=== PATIENT | female | born 1935 | race Caucasian/White ===

== ENCOUNTER 2021-02-07 15:40 | Emergency (ER) | payer MEDICARE, OTHER ==
[~2021-02-07] VITALS: Ht 167.7 cm; Wt 86.0 kg
--- OUTSIDE RECORDS SUMMARY | 2021-02-07 15:48 | XMS REPORT | Encounter Summary ---
[facility] Address Unknown Phone Unavailable Care Team Providers Care Procurement Services Manager Name Role Phone Jeromy Silva MD PCP [phone] Reason for Visit * Reason Onset Date Comments Abdominal Pain 12/14/2020 Encounter Details Care Team Description Date Type Department Jeromy Silva MD [address] [address] [email or web address] Ab[facility] 12/14/2020 Nurse Brian Subramanian Inter nal Triage-Office Medicine - [facility] [address] [place] [id number] Social History Date Tobacco Use Types Packs/Day Years Used Quit: 1986 Former Smoker Cigarettes 1 25 Smokeless Tobacco: Never Used Comments Alcohol Use Standard Drinks/Week On occasion will have a glass of wine Yes 0 (1 standard drink = 0.6 o z pure alcohol) Alcohol Habits Answer Date Recorded How often do you have a drink containing alcohol? 2-4 time s a month 09/12/2018 How many drinks containing alcohol do you have on 1 or 2 09/12/2018 a typical day when you are drinking? How often do you have six or more drinks on one Never 09/12/2018 occasion? [employer] Comments Sexually Active Male Not Currently Sex Assigned at Date Recorded Not on file Industry Job Start Date Occupation Not on file Not on file Not on file documented as of this encounter Miscellaneous Notes * Telephone Encounter - Eloise Landry RN - 12/14/2020 9:50 AM CDT Patient called in complaining of upper abdominal pain more prominent on the righ t side. She states it is an aching feeling that feels like her bra is too tight but she has not worn her bra for 3 days now. She denies N/V/D and constipation. She states she does get SOB. She states she did just lose her and this c ould be part of it. This nurse advised she needs to be seen in ER now due to urg ency of symptoms. Patient voices understanding and states she will have her daug hter take her in. Reason for Disposition Constant abdominal pain lasting > 2 hours Answer Assessment - Initial Assessment Questions 1. LOCATION: "Where does it hurt?" Right under the rib cage- more located on right side 2. RADIATION: "Does the pain shoot anywhere else?" (e.g., chest, back) Up and down the spine 3. ONSET: "When did the pain begin?" (e.g., minutes, hours or days ago) Couple weeks- more severe today 4. SUDDEN: "Gradual or sudden onset?" Gradual 5. PATTERN "Does the pain come and go, or is it constant?" - If constant: "Is it getting better, staying the same, or worsening?" (Note: Constant means the pain never goes away completely; most serious pain is constant and it progresses) - If intermittent: "How long does it last?" "Do you have pain now?" (Note: Intermittent means the pain goes away completely between bouts) Constant 6. SEVERITY: "How bad is the pain?" (e.g., Scale 1-10; mild, moderate, or sever e) - MILD (1-3): doesn't interfere with normal activities, abdomen soft and not t caitlin to touch - MODERATE (4-7): interferes with normal activities or awakens from sleep, ten deniz to touch - SEVERE (8-10): excruciating pain, doubled over, unable to do any normal acti vities 2/10 right now but varies in degree of pain 7. RECURRENT SYMPTOM: "Have you ever had this type of abdominal pain before?" If so, ask: "When was the last time?" and "What happened that time?" No 8. CAUSE: "What do you think is causing the abdominal pain?" Unsure 9. RELIEVING/AGGRAVATING FACTORS: "What makes it better or worse?" (e.g., moveme nt, antacids, bowel movement) Positioning 10. OTHER SYMPTOMS: "Has there been any vomiting, diarrhea, constipation, or uri ne problems?" No 11. : "Is there any chance you are ?" "When was your last menst rual period?" NA Protocols used: ABDOMINAL PAIN - FEMALE-A-OH documented in this encounter Plan of Treatment Not on filedocumented as of this encounter Visit Diagnoses Not on filedocumented in this encounter Additional Health Concerns Noted Time Assessment 03/14/2014 9:55 AM CDT A fall risk assessment has been complet ed for the patient documented as of this encounter Care Teams Start Date End Date Procurement Services Manager Relationship Specialty 09/03/13 Jeromy Silva, PCP - General [email or web address] documented as of this encounter
--- OUTSIDE RECORDS SUMMARY | 2021-02-07 15:48 | XMS REPORT | Encounter Summary ---
Author Author [facility] Organization [facility] Address Unknown Phone Unavailable Care Team Providers Care Senior Cyber Intelligence Analyst Name Role Phone Jeromy Silva MD PCP [phone] Encounter Details Care Team Description Date Type Department Jeromy Silva MD [address] [address] [email or web address] 01/01/2021 Chart Note [facility] - [place] [address] [place] [address] Social History Date Tobacco Use Types Packs/Day [...] as of this encounter Miscellaneous Notes * Progress Notes - Jess Squires MA - 01/01/2021 9:09 AM CDT Pt lab result letter was mailed. documented in this encounter Plan of Treatment Not on filedocumented as of this encounter Visit Diagnoses Not on filedocumented in this encounter Additional Health Concerns Noted Time Assessment 03/14/2014 9:55 AM CDT A fall risk assessment has been complet ed for the patient documented as of this encounter Care Teams Start Date End Date Senior Cyber Intelligence Analyst Relationship Specialty 09/03/13 Jeromy Silva, PCP - General [email or web address] documented as of this encounter
--- OUTSIDE RECORDS SUMMARY | 2021-02-07 15:48 | XMS REPORT | Encounter Summary ---
Author Author [facility] Address Unknown Phone Unavailable Care Team Providers Care Physician Non Invasive Cardiologist Name Role Phone Jeromy Silva MD PCP [phone] Reason for Visit * Imaging Prior Auth (Routine) - Closed Diagnoses / Procedures Referred By Contact Referred To Conta ct Specialty Diagnoses RUQ pain Procedures US ABDOMEN Zulma Perry [address] [place] [address] [facility] Center Ultrasound [address] [place] [address] Radiology Referral ID Status Reason Start Date Expiration Visits Vi sits Date Requested Authorized [id number] Closed Specialty Services 12/14/2020 12/14/2021 1 1 Required Encounter Details Care Team Description Date Type Department Provider, [employer], MODEL USER [address] [place] [id number] RUQ pain 12/15/2020 Imaging [facility] [place] [address] [place] [address] Social History Date Tobacco Use Types Packs/Day [...] on file documented as of this encounter Plan of Treatment Not on filedocumented as of this encounter Procedures Comments Procedure Name Priority Date/Time Associated Diag nosis US ABDOMEN COMPLETE Routine 12/15/2020 RUQ pain 10:53 AM CDT documented in this encounter Results * US ABDOMEN COMPLETE (12/15/2020 10:53 AM CDT) Modality Anatomical Region Laterality Ultrasound Abdomen Specimen Impressions Ramu Smith MD - 12/15/2020 11:51 AM CDT 1. The liver is normal in size, and th e echo texture is diffusely hyperechoic, consistent with hepatic steatosis ( fatty liver ), or other less likely diffuse liver process. The patient does have risk factor(s) for fatty liver. Fatty liver can cause right upper quadrant/epigastric pain. Liver chemistries may sometimes be normal with fatty liver. 2. There is a simple cyst in the spleen. It meets sonographic criteria for benignity and would not typically require specific imaging follow up unless preferred by the ordering provider or patient. 3. The remainder of the study is normal. Close additional attention is paid to the gallbladder. 4. At least some of the patient s symptoms are suggestive of biliary colic, plus the patient has one or more risk factors for gallbladder disease, so the question of a gallbladder functional disorder could be raised. Depending on the clinical setting a sonographic gallbladder emptying study may be helpful. Its results correlate well with those of HIDA radioisotope gallbladder emptying studies, but it is less expensive, less time-consuming, and avoids radiation exposure and IV injections. Please Note: Visualization of the pancreas is typically quite limited with ultrasound. ANCILLARY INFORMATION - on This Case of Presumptive Fatty Liver Follows, if Interested. A. Nearly always the cause of fatty liver (hepatic steatosis) is one or both of the followin) NONALCOHOLIC fatty liver disease (NAF LD) - with by far its major triggers being overweight, and/or diabetes/prediabetes, OR 2) ALCOHOLIC fatty liver disease (AFLD). Occasionally chronic hepatitis C (mostly genotype 3), can cause fatty liver. Other causes are rare. B. Fatty liver commonly causes chronic right upper quadrant/epigastric pain and/or liver chemistry elevation, but sometimes neither of these is present. C. The liver chemistry elevations of fatty liver typically comprise mild transaminase elevations with or without mild elevation of the alkaline phosphatase and GGT. Infrequently there can be mild isolated alkaline phosphatase elevation, mostly seen in diabetics. Fatty liver alone does not cause elevation of the bilirubin. In normal patients, and in those with NAFLD including this patient, the AST/ALT ratio is nearly always <1 or close. D. In the [place] NAFLD is pandemic, present in about 1/3 of adults, and is the most type of chronic liver disease in [place]. It is now one of the 3 leading causes of cirrhosis and liver transplantation in the [place] along with alcoholic liver disease and chronic hepatitis C, and is projected to soon be the LEADING cause of both. NAFLD also increases the risk of hepatocellular carcinoma. Alarmingly our Ultrasound Lab makes the new diagnosis of fatty liver in several patients every single day, some being children and teenagers. E. LIVER FIBROSIS STAGE is the best prognostic factor in fatty liver. The presence of advanced fibrosis is associated with an increased risk of the presence or later development of cirrhosis, portal hypertension, and hepatocellular carcinoma, and is associated with an increased all-cause mortality rate. Short of liver biopsy, the NAFLD Fibrosis Score , easily calculated using 6 clinical variables at (best internet site) https://www.Ogorod.co/qbyhz-kbwonsck-bmzgs-calculator-239/ , used together with sonographic Liver Elastography, can be used to best assess liver fibrosis stage, and is especially meaningful if performed yearly or periodically. Narrative Ramu Smith MD - 12/15/2020 11:51 AM CDT INDICATION: Pain in the right upper quadrant and right lower quadrant, some of which has features of biliary colic. Liver chemistries 03/30/20 were normal. The patient s BMI is recorded as 33 (25-29.9 = overweight; 30 or greater = obese), today he/she rep orts no diagnosed diabetes or prediabetes, and reports no regular alcohol use. 1. Procedure High resolution real time imaging of the contents of the abdominal cavity is performed. 2. Abdominal Aorta (entire) and IVC (pro ximal and/or mid) No clinically significant abnormalities. 3. Pancreas The limited visualized portions reveal no obvious masses, but visualization is incomplete as usual. 4. Liver and Bile Ducts Normal in size. The contour is normal. The echo texture is diffusely mildly hyperechoic. No focal lesions are seen. The common hepatic duct near the kyrie hepatis is normal in diameter. No dilatation of the intrahepatic or other extrahepatic bile ducts is present. 5. Gallbladder Normal in size and contour. The lumen reveals no abnormality. Wall thickness normal. 6. Kidneys Right Size: normal. Appearance: normal. Left Size: normal. Appearance: normal. 7. Spleen Echo texture is normal except for a 2.6 cm simple cyst. 8. Other There is no abnormal free fluid in the abdomen, and no abnormal masses are seen. FINAL documented in this encounter Visit Diagnoses Diagnosis RUQ pain Abdominal pain, right upper quadrant documented in this encounter Additional Health Concerns Noted Time Assessment 03/14/2014 9:55 AM CDT A fall risk assessment has been complet ed for the patient documented as of this encounter Care Teams Start Date End Date Physician Non Invasive Cardiologist Relationship Specialty 09/03/13 Jeromy Silva, PCP - [email or web address] documented as of this encounter
--- OUTSIDE RECORDS SUMMARY | 2021-02-07 15:48 | XMS REPORT | Clinical Summary ---
Author Author [facility] Address Unknown Phone Unavailable Care Team Providers Care Cigarette Examiner Name Role Phone Jeromy Silva MD PCP [phone] Allergies Comments Active Allergy Reactions Severity Noted Date Nausea Donepezil Nausea Only Cough. Stopped by cardiololgy, 12/13/17. Lisinopril Other (See 12/14/2017 Comments) made pt ill Sulfamethoxazole-Trimetho Other (See prim Comments) Medications End Date Status Medication Sig Dispensed Refills Start Date Active vitamin E 400 units Take 400 0 capsule Units by mouth daily. Active vitamin C (ASCORBIC ACID) Take 500 mg 0 500 MG tablet by mouth daily. Active multivitamin Take 1 tablet 0 (OCUVITE-LUTEIN) TABS by mouth tablet daily. Active vitamin B-12 Take 1 tablet 0 (CYANOCOBALAMIN) 1000 MCG (1,000 mcg 8 tablet total) by mouth daily. Active Cholecalciferol (VITAMIN Take 1 0 D3) 5000 units capsule by CAPSIndications: Vitamin mouth daily. D deficiency Active Lutein 40 MG CAPS Take by 0 mouth. Active cyclobenzaprine Take 10 mg by 0 (FLEXERIL) 10 MG tablet mouth 3 9 (three) times daily as needed. Active amLODIPine (NORVASC) 5 MG Take 1 tablet 90 tablet 3 tabletIndications: (5 mg total) 0 Essential hypertension by mouth daily. Active losartan (COZAAR) 50 MG Take 1 tablet 90 tablet 3 tabletIndications: (50 mg total) 0 Hypertension by mouth daily. Indications: High Blood Pressure Disorder Active fish oil (OMEGA-3) 1000 Take 4,000 mg 60 capsule 11 MG capsuleIndications: by mouth See 0 Hypercholesterolemia Admin Instructions. Takes twice a week Active levothyroxine (SYNTHROID) Take 1 tablet 90 tablet 3 75 MCG tablet by mouth once 1 daily Active aspirin (ECOTRIN LOW Take 81 mg by 0 STRENGTH) 81 MG EC mouth daily. tabletIndications: MCI (mild cognitive impairment) Active DULoxetine (CYMBALTA) 30 Take 1 30 capsule 3 0 MG capsuleIndications: capsule (30 1 Major Depressive Disorder mg total) by mouth daily. Indications: Major Depressive Disorder Active Problems Problem Noted Date Liver mass 12/23/2020 Overview: Formatting of this note might be differ ent from the original. CT abdomen/pelvis on 12/23/2020 showed: 1. Vague low-attenuation focus identified within the posterior medial aspect of the right hepatic lobe centered on image 24 measuring 2.4 x 2. 4 cm, suspicious for malignancy. There is associated rotation of the phr enic biliary ductal system in the adjacent portions of the right posterio r hepatic lobe and right caudate lobe. This mass encases the proximal a spect of the right main portal vein causing luminal narrowing. 2. Enlarging splenic cystic focus dmitriy uring 3.7 x 2.9 cm. I discussed the liver mass with the pat ient. Will need to be biopsied. She would like to go to [facility] as her [employer] works there. L ast Assessment & Plan: Formatting of this note might be differ ent from the original. CT abdomen/pelvis on 12/23/2020 showed: 1. Vague low-attenuation focus identified within the posterior medial aspect of the right hepatic lobe centered on image 24 measuring 2.4 x 2. 4 cm, suspicious for malignancy. There is associated rotation of the phr enic biliary ductal system in the adjacent portions of the right posterio r hepatic lobe and right caudate lobe. This mass encases the proximal a spect of the right main portal vein causing luminal narrowing. 2. Enlarging splenic cystic focus dmitriy uring 3.7 x 2.9 cm. I discussed the liver mass with the pat ient. Will need to be biopsied. She would like to go to [facility] as her [employer] ndson works there. 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 Monitor kidney function. L ast Assessment & Plan: Formatting of this note might be differ ent from the original. Monitor kidney function. Right calf pain 11/05/2020 Overview: Formatting of this note might be differ ent from the original. She has pain and swelling of her right calf. She had her right ankle immobilized recently due to right ankle pain. Check venous ultrasound of right leg. L ast Assessment & Plan: Formatting of this note might be differ ent from the original. She has pain and swelling of her right calf. She had her right ankle immobilized recently due to right ankle pain. Check venous ultrasound of right leg. Acute right ankle pain 08/10/2020 Overview: Formatting of this note is different fr om the original. She had acute medial right ankle pain w ithout injury, 08/03/20. She had edema over medial malleolus. The media l malleolus was tender. She tried ibuprofen twice daily and iced the ankl e twice daily. X-ray of right ankle, 08/10/20, was normal. She was ev aluated by Dr. Malcolm on 09/30/2020. 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 She was placed in a walking boot. MRI of the right ankle 10/02/2020 showed: 1. There is some nonspecific bone marrow edema seen. This may represent contusion or small osteochondral defect along medial talar dome. No und er cutting fluid to suggest instability. No fracture or significan t bone marrow edema. There is loss of the arch of the foot. Articulations otherwise are normal without significant joint effusion. 2. Anterior talofibular ligament is no t well seen and may be torn. There is also partial tear of the or sprain o f the calcaneofibular ligament suggested. The other ligamentous struc tures are intact. 3. The major tenderness structures thr oughout do appear within normal limits. 4. Small cystic structure dorsal to th e talonavicular joint. Mild subcutaneous edema of the lower leg and ankle and mild edema Gauger's fat pad. 5. Mild fluid within the tendon sheath s of the medial flexor tendons. The tendons are otherwise are normal. She moved from her boot to a right ankl e brace. She has less swelling. She continues to see Dr. Malcolm. L ast Assessment & Plan: Formatting of this note is different fr om the original. She had acute medial right ankle pain w ithout injury, 08/03/20. She had edema over medial malleolus. The media l malleolus was tender. She tried ibuprofen twice daily and iced the ankl e twice daily. X-ray of right ankle, 08/10/20, was normal. She was ev aluated by Dr. Malcolm on 09/30/2020. 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 She was placed in a walking boot. MRI of the right ankle 10/02/2020 showed: 1. There is some nonspecific bone marrow edema seen. This may represent contusion or small osteochondral defect along medial talar dome. No und er cutting fluid to suggest instability. No fracture or significan t bone marrow edema. There is loss of the arch of the foot. Articulations otherwise are normal without significant joint effusion. 2. Anterior talofibular ligament is no t well seen and may be torn. There is also partial tear of the or sprain o f the calcaneofibular ligament suggested. The other ligamentous struc tures are intact. 3. The major tenderness structures thr oughout do appear within normal limits. 4. Small cystic structure dorsal to th e talonavicular joint. Mild subcutaneous edema of the lower leg and ankle and mild edema Gauger's fat pad. 5. Mild fluid within the tendon sheath s of the medial flexor tendons. The tendons are otherwise are normal. She moved from her boot to a right ankl e brace. She has less swelling. She continues to see Dr. Malcolm. Primary osteoarthritis of left knee 02/07/2020 Overview: Formatting of this note might be differ ent from the original. She is exquisitely tender over medial t high/knee without any skin changes. I see no hematoma. She does not want t o take a medication. I will have her see Dr. Lockett. MRI of the left knee on 02/11/2020 showe d 1. Degenerative arthrosis. 2. Loss of height of the medial menisc us. Tear of the body and posterior horn of the medial meniscus. 3. ACL is intact. Minimal heterogeneo us signal within the superior aspect of the PCL suggesting minimal sprain. 4. Minimal edema within Hoffmans fat p ad. 5. Tiny popliteal cyst. 6. Minimal tendinosis of the quadricep tendon and patellar tendons. 7. Nonlocalizing soft tissue edema, an terior to the knee. 8. Mild lateral subluxation of the pat lisandro. L ast Assessment & Plan: Formatting of this note might be differ ent from the original. She is exquisitely tender over medial t high/knee without any skin changes. I see no hematoma. Check MRI of knee/l eft thigh. She does not want to take a medication. I will have her see Dr. Lockett. Acute pain of left lower extremity 01/29/2020 Overview: Formatting of this note might be differ ent from the original. The patient was evaluated in ER on 2019 with left leg pain. The pain started while she was sleeping 10 days prior with persistent leg pain that was worse with weightbearing. Venous u ltrasound of the left lower extremity was negative for DVT. She re ceived a dose of Tylenol in the ER. She had no known injury. She had pulle d weeds for a week prior to the pain. She continues to have pain. She has pain over medial thigh then down into her calf. She can not straighten her leg due to pain. She hurts more over medial thigh and knee and lateral knee and lateral cough. She has a neuropathy in her feet so she can not t ell if her foot hurts. She is exquisitely tender over medial t high/knee without any skin changes. I see no hematoma. Check MRI of knee/l eft thigh. She does not want to take a medication. I will have her see Dr. Lockett. L ast Assessment & Plan: Formatting of this note might be differ ent from the original. She is exquisitely tender over medial t high/knee without any skin changes. I see no hematoma. Check MRI of knee/l eft thigh. She does not want to take a medication. I will have her see Dr. Lockett. Insect bite of right forearm, initial encounter 11/26 Last Assessment & Plan: Formatting of this note might be differ ent from the original. Antibiotic as directed. Printed education provided. Rest as needed. Plenty of fluids. Diphenhydramine cream - apply to the ar ea as needed. Other over the counter symptom manageme nt as needed. Follow-up as needed for persistent or w orsening symptoms. Bilateral groin pain 11/15/2018 Overview: Formatting of this note might be differ ent from the original. She is improving. L ast Assessment & Plan: Formatting of this note might be differ ent from the original. She is improving. Calcaneal spur of left foot 03/28/2018 Overview: Formatting of this note might be differ ent from the original. X-ray on 03/28/18 shows moderate planta r calcaneal spurring. S/P cardiac cath 11/23/2017 Overview: Formatting of this note is different fr om the original. Done by Dr. Anne 11/13/17. Showed 1.N ormal coronary arteries, 2. LVEF of 70-75%, 3. Left ventricular diastoli c dysfunction. L ast Assessment & Plan: Formatting of this note might be differ ent from the original. Patient reports to feeling better since her cardiac cath. She denies chest pain and reports her SOB has improved. There has been no complications so far from this procedure. Pelvic pain 11/08/2017 Overview: Formatting of this note might be differ ent from the original. Pelvic XR, 11/08/17: No clear fx but DJ D. L ast Assessment & Plan: Formatting of this note might be differ ent from the original. I will check pelvic XR. Sacral back pain 11/08/2017 Overview: Formatting of this note might be differ ent from the original. Sacral XR, 11/08/17: No clear fx but DJ D. Lumbar spine film ?L1 compression fracture. MRI on 11/10/17 sh owed multilevel degenerative changes with disc bulges and protrusions but no compression fracture. L ast Assessment & Plan: Formatting of this note might be differ ent from the original. Check XRs. Gallbladder polyp 03/28/2017 Overview: Formatting of this note might be differ ent from the original. 0.4 cm gallbladder polyp noted on u/s, 03/28/17. Radiologist recommended yearly f/u for 2-3 years since it is <0 .6 cm. Acute non intractable tension-type headache 02/29/20 17 Overview: Formatting of this note might be differ ent from the original. Sed rate: 25, 11/09/16. Breast pain 02/28/2017 Overview: Formatting of this note might be differ ent from the original. Left breast has significant tenderness. I do not feel any mass but painful over her biopsy scar. May need to see surgery. Chest pain, unspecified chest pain type 02/28/2017 Overview: Formatting of this note might be differ ent from the original. Echo, 06/2011, showed LVEF 60% with mild diastolic dysfunction. Stress test, negative, 07/26/11. No significan t CAD found on heart cath, 10/2004. Chronic fatigue 02/28/2017 Overview: Formatting of this note might be differ ent from the original. B12 level: normal, 12/18/15, but 336, and 343, 12/08/17. L ast Assessment & Plan: Formatting of this note might be differ ent from the original. B12 level: normal, 12/18/15, but 336, and 343, 12/08/17. She has noted chronic fatigue. Chronic low back pain 02/28/2017 Overview: Formatting of this note might be differ ent from the original. Sees chiropractor as needed. MRI of the lumbar spine on 03/13/18: Multilevel degenerative changes. Multil evel disc bulges and protrusions. No canal stenosis. Varying degrees of fora alo narrowing. 1.4 cm cystic focus within the left upper quadrant etiology uncertain. Stable. L ast Assessment & Plan: Formatting of this note might be differ ent from the original. MRI of the lumbar spine on 03/13/18: Mu ltilevel degenerative changes. Multilevel disc bulges and protrusions. No canal stenosis. Varying degrees of foraminal narrowing. 1.4 cm cystic f ocus within the left upper quadrant etiology uncertain. Stable. Costochondritis 02/28/2017 Overview: Formatting of this note might be differ ent from the original. She was tender over chest wall and doin g a lot of yard work. Stress test: normal, 11/04/15. Dry eyes, bilateral 02/28/2017 Overview: Formatting of this note might be differ ent from the original. She has severe dry eyes. She sees Dr. Verduzco. She is using eye drops four times daily but she is interested in a prescription medication. Hemorrhoids 02/28/2017 Overview: Formatting of this note might be differ ent from the original. after childbirth Hypercholesterolemia 02/28/2017 Overview: Formatting of this note might be differ ent from the original. She could not tolerate zocor. She is t rying to work on her diet. She knows that she needs to exercise more. Niacin did cause hot flashes. L ast Assessment & Plan: Formatting of this note might be differ ent from the original. She could not tolerate zocor. She is t rying to work on her diet. Hypothyroidism, adult 02/28/2017 Overview: Formatting of this note might be differ ent from the original. Continue levothyroxine. Monitor TSH wi th reflex to free T4. Last Assessment & Plan: Formatting of this note might be differ ent from the original. Continue levothyroxine. Monitor TSH wi th reflex to free T4. Impaired fasting glucose 02/28/2017 Overview: Formatting of this note might be differ ent from the original. Fasting glucose of 107 but a1c only 5.2 %, 03/09/15. Leg pain, left 02/28/2017 Overview: Formatting of this note might be differ ent from the original. Left Tib/fib,Ankle x-ray, knee: negativ e, 09/19/11. Lumbar disc herniation 02/28/2017 Overview: Formatting of this note might be differ ent from the original. MRI, 08/22/16, showed posterior annular tear and bulging disk at L3/4 and L4/5. Neuropathic pain 02/28/2017 Overview: Formatting of this note might be differ ent from the original. Mid thoracic spine around chest. She d id have a tick bite a while ago. It is now progessing more inferiorly but a lso more superiorly. MRI, 12/26/13 showed minimal degenerative arthritis o r disk disease. Lyme titer: negative, 12/25/13. Vitamin A and B12 l evels: normal, 12/25/13. B12 level: normal, 12/18/15 but only 343 on 12/08/17 . Her sedimentation rate and CRP were normal on 12/08/17. Obesity (BMI 30.0-34.9) 02/28/2017 Overview: Formatting of this note might be differ ent from the original. She does not exercise. She is unsteady on her feet. L ast Assessment & Plan: Formatting of this note might be differ ent from the original. She does not exercise. She is unsteady on her feet. Pes planus of both feet 02/28/2017 Right wrist pain 02/28/2017 Overview: Formatting of this note might be differ ent from the original. Chris is controlling the pain. X-rays: negative, 01/11/13. Skin tag 02/28/2017 Overview: Formatting of this note might be differ ent from the original. She has two skin tags that get irritate d from her bra. Vitamin D deficiency 03/03/2010 Overview: Formatting of this note might be differ ent from the original. 25-OH vitamin D level, 27, 03/03/2010 an d 28, 06/09/10 and 36, 03/10/11 and 34, 03/06/13 and 29, 03/10/14. Vitamin D3 increased to 2000 units/day. Vitamin D dropped to 9, 17 and 24 , 09/07/17, so vitamin D increased to 4000 units/d. Vitamin D: 32, 11/08/17 but down to 23, 12/08/17 and 19, 03/13/18 and 21, 09/13/18. [place] [address] [place]/d, 09/13/18. Vitamin D level increased to 40, 124/2 0 but down to 28, 03/30/20. L ast Assessment & Plan: Formatting of this note might be differ ent from the original. 25-OH vitamin D level, 27, 03/03/2010 an d 28, 06/09/10 and 36, 03/10/11 and 34, 03/06/13 and 29, 03/10/14. Vitamin D3 increased to 2000 units/day. Vitamin D dropped to 9, 1017 and 24 , 09/07/17, so vitamin D increased to 4000 units/d. Vitamin D: 32, 11/08/17 but down to 23, 718 and 19, 03/13/18 and 21, 09/13/18. [place] [address] [place]/d, 09/13/18. Vitamin D level increased to 40, 1/24/2 0. 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 She still worries about her family and daughter who lost her job but she is managing. Her brother due to neur opathy in 2018 and she also has neuropathy. Her in 2020. (Her had 3 surgeries. He can not hear and will not wear hearing aids. He had all of his teeth pulled but will not wear his dentures.) She has stress more than depression. She had felt that she coul d manage without medication for a long time. Her daughter has come to [facility] with them so she can cook and drive which has helped. Her daughter n eeds to leave to take a job. She has to sell her home. She can not find a house to move into in [place], [place]. She is from [place] so she still has some friends there. Her PHQ-9 score was 17 on 11/05/20. Duloxetine st arted, 2020. She has times when she just sits and feels empty inside. She has no strength to get up. She tries to change her mental outlook. L ast Assessment & Plan: Formatting of this note might be differ ent from the original. She still worries about her family and daughter who lost her job but she is managing. Her brother due to neur opathy in 2018 and she also has neuropathy. Her in 2020. (Her had 3 surgeries. He can not hear and will not wear hearing aids. He had all of his teeth pulled but will not wear his dentures.) She has stress more than depression. She had felt that she coul d manage without medication for a long time. Her daughter has come to [facility] with them so she can cook and drive which has helped. Her daughter n eeds to leave to take a job. She has to sell her home. She can not find a house to move into in [place], [place]. She is from [place] so she still has some friends there. Her PHQ-9 score was 17 on 11/05/20. Duloxetine st arted, 2020. She has times when she just sits and feels empty inside. She has no strength to get up. She tries to change her mental outlook. Primary osteoarthritis involving multip le joints Overview: Formatting of this note might be differ ent from the original. Right thumb and right knee pain consist ent with osteoarthritis. Discussed NSAIDs/tylenol and will try capsaicin c ream prn, 03/06/13. Osteopenia of left hip Overview: Formatting of this note might be differ ent from the original. Bone Density in 2005 showed osteopenia. Follow-up in 2010 continued to show osteopenia. Bone density, 7, showed osteopenia but her FRAX risk assessment in hip was >3% at 3.3%. DEXA, 05/11/20, showed osteopenia of left hip. The FRAX calculation for t his patient estimates a 10-year probability of any major osteoporotic f racture of 13% and of hip fracture of 3.2%, 05/11/20. Treatment recommend ed. Fosamax started, 05/18/20. L ast Assessment & Plan: Formatting of this note might be differ ent from the original. Bone Density in 2005 showed osteopenia. Follow-up in 2010 continued to show osteopenia. Bone density, 7, showed osteopenia but her FRAX risk assessment in hip was >3% at 3.3%. I will repeat DEXA. Essential hypertension Overview: Formatting of this note might be differ ent from the original. I decreased her amlodipine to 5 mg/d du e to edema, 12/31/18. Her edema improved when amlodipine was decreased to 5 mg/d, 12/14/17. Cardiology changed her lisinopril to losartan due to cough and metoprolol to amlodipine on 12/13/17. Her blood pressure is elevated. Losart an increased to 50 mg/d, 03/30/20. Continue losartan and amlodipine. L ast Assessment & Plan: Formatting of this note might be differ ent from the original. Her blood pressure is elevated. Losart an increased to 50 mg/d, 03/30/20. Continue losartan and amlodipine. Chronic bilateral thoracic back pain Overview: Formatting of this note might be differ ent from the original. She has a pain that goes around her upp er abdomen. L ast Assessment & Plan: Formatting of this note might be differ ent from the original. Check thoracic spine films. She has a pain that goes around her upper abdomen. Right hip pain Overview: Formatting of this note might be differ ent from the original. I offered to refer her to geophysical drafter apy but she does not want to yet. L ast Assessment & Plan: Formatting of this note might be differ ent from the original. I offered to refer her to geophysical drafter [place] but she does not want to yet. Unsteady gait Overview: Formatting of this note might be differ ent from the original. She had 3 falls in 3 months then anothe r fall last winter. She worked with physical therapy. She has a neuropathy that she describes as a tightness in her posterior legs. This seems to b e part of problem. She also describes that at times it feels like h er feet are stuck to the floor/ground. She was walking with a c ane but stopped. She may need to be evaluated by Neurology in the future. L ast Assessment & Plan: Formatting of this note might be differ ent from the original. She had 3 falls in 3 months then anothe r fall last winter. She worked with physical therapy. She has a neuropathy that she describes as a tightness in her posterior legs. This seems to b e part of problem. She also describes that at times it feels like h er feet are stuck to the floor/ground. She was walking with a c ane but stopped. She may need to be evaluated by Neurology in the future. Idiopathic peripheral neuropathy Overview: Formatting of this note might be differ ent from the original. She has a sense like her feet are arturo er and tight. It feels like the plantar feet are tight. Her feet never improve. EMG, 01/04/18: sensory peripheral neurop athy on the bilateral lower extremities. The patient had MRI of the lumbar spine which shows multilevel disk degenerative change with small left ext rusion of L4-L5; no high-grade stenosis. She is noticing progressive numbness th at is going up the back of her legs. She is having more leg cramps. Her father had a neuropathy and her brother had a neuropathy as well. I re commended gabapentin, 09/12/18 and 11/05/20, but she does not like pills an d does not want to take anything yet. Duloxetine started, 11/05/20, for depression. I will see if helps her neuropathy. L ast Assessment & Plan: Formatting of this note might be differ ent from the original. I recommended gabapentin, 09/12/18 and , but she does not like pills and does not want to take anything yet. Duloxetine started, 11/05/20, for depression. I will see if helps her ne uropathy. Edema, lower extremity Overview: Formatting of this note might be differ ent from the original. I decreased her amlodipine to 5 mg/d du e to edema, 12/31/18. L ast Assessment & Plan: Formatting of this note might be differ ent from the original. I decreased her amlodipine to 5 mg/d du e to edema, 12/31/18. Class 1 obesity due to excess calories with serious comorbidity and body mass index (BMI) of 32.0 to 32.9 in angie lt Overview: Formatting of this note might be differ ent from the original. I discussed increasing her exercise. S he does not exercise [place] She tr ies to stay active but her neuropathy in her feet prevents her fro m walking too much. She has brought her weight down which she attributes to her daughter cooking her meals. L ast Assessment & Plan: Formatting of this note might be differ ent from the original. She does not exercise but [place] She tries to stay active but her neuropathy in her feet prevents her from walking too much. She has brought her weight down which she attributes to her daughter cooking her meals. NAFLD (nonalcoholic fatty liver disease ) Overview: Formatting of this note might be differ ent from the original. Fatty liver noted on CT scan 03/20/18. MCI (mild cognitive impairment) Overview: Formatting of this note might be differ ent from the original. Her mother had dementia. She feels mor e forgetful. Her family has noted some changes. MMSE score of 26/30, . (Medican score for age and education 27.) Aricept tried, 11/12/15. B12 level: normal, 12/18/15. MMSE score 25/30. All of the questions that she missed were serial 7s. Predicted Median for age and years of e ducation was 29, 09/12/18. She loves to make quilts and she feels this helps keep her mind active. Her memory seems to be worsening. She forgets things that she is doing. Her long-term memory does seem to be in tact. She called in on 05/18/2020 to start a medication. Donepezil 5 mg a day was tried but she stopped taking it when she was dealing with her 's . L ast Assessment & Plan: Formatting of this note might be differ ent from the original. Donepezil 5 mg a day was tried but she stopped taking it when she was dealing with her 's . Abdominal pain, RUQ Overview: Formatting of this note is different fr om the original. Patient presented to ER on 12/14/2020 wi th intermittent right upper quadrant pain for 2 months. She initially thoug ht that she had adjusted her bra too tightly. Pain is worse after eating gr easy meals. Last to 3 days she had having creased pain after eating. She had no nausea, vomiting or diarrhea. She had a normal bowel movement. Cell count and hemoglobin were normal. Her liver tests were normal. Alkaline phosphatase level was elevated 170. Lipase was 32. She received a dose of Tylenol. Patient was diagnosed with right upper quadrant pain likely due to cholelithiasis. Patient was dismissed to home. Ultrasound on 12/15/2020 showed: 1. T he liver is normal in size, and the echo texture is diffusely hyperechoic, consistent with hepatic st eatosis ("fatty liver"), or other less likely diffuse liver process. Th e patient does have risk factor(s) for fatty liver. Fatty liver can cause right upper quadrant/epigastric pain. Liver chemistries may sometimes b e normal with fatty liver. 2. There is a simple cyst in the spleen . It meets sonographic criteria for benignity and would not typically r equire specific imaging follow up unless preferred by the ordering provid er or patient. 3. The remainder of the study is normal . Close additional attention is paid to the gallbladder. 4. At least some of the patient's sympt oms are suggestive of biliary colic, plus the patient has one or more risk f actors for gallbladder disease, so the question of a gallbladder functiona l disorder could be raised. Depending on the clinical setting a son ographic gallbladder emptying study may be helpful. Its results correlate w ell with those of HIDA radioisotope gallbladder emptying studies, but it is less expensive, less time-consuming, and avoids radiation ex posure and IV injections. She was tender over liver. CT abdomen/pelvis on 12/23/2020 showed: 1. Vague low-attenuation focus identified within the posterior medial aspect of the right hepatic lobe centered on image 24 measuring 2.4 x 2. 4 cm, suspicious for malignancy. There is associated rotation of the phr enic biliary ductal system in the adjacent portions of the right posterio r hepatic lobe and right caudate lobe. This mass encases the proximal a spect of the right main portal vein causing luminal narrowing. 2. Enlarging splenic cystic focus dmitriy uring 3.7 x 2.9 cm. MRI of abdomen on 01/01/2021 showed: 1. Dilated intrahepatic biliary ductal system is within posterior aspect right hepatic lobe and adjacent caudate lobe again identified. Severe narrowin g of the proximal aspect of the right main portal vein is again identif ied, better visualized on CT. 2. On dynamic postcontrast images, the re is increasing parenchymal enhancement in the right hepatic lobe i n the region of the ductal dilatation. Underlying neoplastic proc ess suspected. 3. Splenic cyst. L ast Assessment & Plan: Formatting of this note is different fr om the original. Patient presented to ER on 12/14/2020 wi th intermittent right upper quadrant pain for 2 months. She initially thoug ht that she had adjusted her bra too tightly. Pain is worse after eating gr easy meals. Last to 3 days she had having creased pain after eating. She had no nausea, vomiting or diarrhea. She had a normal bowel movement. Cell count and hemoglobin were normal. Her liver tests were normal. Alkaline phosphatase level was elevated 170. Lipase was 32. She received a dose of Tylenol. Patient was diagnosed with right upper quadrant pain likely due to cholelithiasis. Patient was dismissed to home. Ultrasound on 12/15/2020 showed: 1. T he liver is normal in size, and the echo texture is diffusely hyperechoic, consistent with hepatic st eatosis ("fatty liver"), or other less likely diffuse liver process. Th e patient does have risk factor(s) for fatty liver. Fatty liver can cause right upper quadrant/epigastric pain. Liver chemistries may sometimes b e normal with fatty liver. 2. There is a simple cyst in the spleen . It meets sonographic criteria for benignity and would not typically r equire specific imaging follow up unless preferred by the ordering provid er or patient. 3. The remainder of the study is normal . Close additional attention is paid to the gallbladder. 4. At least some of the patient's sympt oms are suggestive of biliary colic, plus the patient has one or more risk f actors for gallbladder disease, so the question of a gallbladder functiona l disorder could be raised. Depending on the clinical setting a son ographic gallbladder emptying study may be helpful. Its results correlate w ell with those of HIDA radioisotope gallbladder emptying studies, but it is less expensive, less time-consuming, and avoids radiation ex posure and IV injections. She is tender over liver. CT abdomen/pelvis on 12/23/2020 showed: 1. Vague low-attenuation focus identified within the posterior medial aspect of the right hepatic lobe centered on image 24 measuring 2.4 x 2. 4 cm, suspicious for malignancy. There is associated rotation of the phr enic biliary ductal system in the adjacent portions of the right posterio r hepatic lobe and right caudate lobe. This mass encases the proximal a spect of the right main portal vein causing luminal narrowing. 2. Enlarging splenic cystic focus dmitriy uring 3.7 x 2.9 cm. Resolved Problems Problem Noted Date Resolved Date Cellulitis of right lower extremity 05/21/2019 Overview: Formatting of this note might be differ ent from the original. I will treat with keflex x 7 days. She will keep skin moisturized with vaseline. L ast Assessment & Plan: Formatting of this note might be differ ent from the original. I will treat with keflex x 7 days. She will keep skin moisturized with vaseline. FUO (fever of unknown origin) 11/02/2018 03/27/20 20 Overview: Formatting of this note might be differ ent from the original. Patient presented to ER on 11/02/18 with fever chills back pain and hip pain. Patient reported being in her yard daljitn g extensive weeding. On getting back into her house she noticed about 8 tick s on her legs and also 3 spider bites. Patient also notes that she has 8-12 cats and most of them had been ill the week before with a diarrheal il lness for which the bet had prescribed some antibiotics. Case manag emtaco called the clinic and reported the vast were being treated for giardia . Her temperature was 101.3F. Chest x-ray showed mild prominence of v asculature compared to previous exam. There is no consolidation. Patien isabella was admitted as an inpatient. The patient's fever went to greater than 10 3F. Her white blood cell count was 9800 with a bandemia of 18%. She was al so mildly hyponatremic. She started on IV fluids. Her antibiotics were hart ged to IV Zosyn. Blood cultures were negative, respiratory pathogen panel wa s negative, urinalysis was negative and stool pathogen panel (including teodora rdia) was also negative. Lactic acid was within normal limits) calcitonin wa s only mildly elevated and improved. Her white blood cell count remained nor mal and her bandemia improved. She was covered for a tickborne illness has no other sources of infection were identified. She was dismissed to home w [facility] and doxycycline 100 mg twice daily for 14 more days on 11/07. She was also prescribed tizanidine for back spasms. She is slowly but steadily improving. She is finished with home health. L ast Assessment & Plan: Formatting of this note might be differ ent from the original. She is slowly but steadily improving. She is finished with home health. Cat scratch of hand, left, initial encounter 05/16/2017 11/15/2018 Pain of upper abdomen 03/09/2017 12/23/2020 Overview: Formatting of this note might be differ ent from the original. Her pain is across her upper abdomen. A bdominal u/s, 03/28/17, did not show a cause for her pain. L ast Assessment & Plan: Formatting of this note might be differ ent from the original. Her pain is across her upper abdomen. I will check abdominal u/s. Anxiety 02/28/2017 03/18/2019 Last Assessment & Plan: Formatting of this note might be differ ent from the original. Improved. Closed fracture of rib, right, with routine healing, subsequent encounter 02/28/2017 02/28/2017 Overview: Formatting of this note might be differ ent from the original. Right sided after fall, 08/07/12. Bone scan, 08/21/12, showed right 4th and 5th rib fractures. Idiopathic peripheral neuropathy 02/28/201703/12 Overview: Formatting of this note might be differ ent from the original. B12 level: normal, 12/18/15. Resolved 03.12.2018, duplicate L ast Assessment & Plan: Formatting of this note might be differ ent from the original. Stable. Memory loss 02/28/2017 09/12/2018 Overview: Formatting of this note might be differ ent from the original. Her mother had dementia. She feels mor e forgetful. Her family has noted some changes. MMSE score of 26/30, . (Medican score for age and education 27.) Aricept tried, 11/12/15. B12 level: normal, 12/18/15. Spider bite wound, accidental or unintentional, subse quent encounter 02/28/2017 02/28/2017 Overview: Formatting of this note might be differ ent from the original. Seems to be healing. Will stop bactrim , 03/09/15. Traumatic ulcer of left lower extremity with necrosis of mu scle 02/28/2017 02/28/2017 Overview: Formatting of this note might be differ ent from the original. Seems to be healed but still has some l ocal pain to area. Xray: negative for foreign body, 06/30/15. 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 Follow-up colonoscopy, 02/21/12, showed no polyps. Acute left ankle pain 03/27/2020 Overview: Formatting of this note might be differ ent from the original. She is better. If worsens, then she wo uld like to see Dr. Aranda. L ast Assessment & Plan: Formatting of this note might be differ ent from the original. She is better. If worsens, then she wo uld like to see Dr. Aranda. Wound, open, hip or thigh with complication, right, s ubsequent encounter 11/28/2018 Overview: Formatting of this note might be differ ent from the original. It seems to be healing. Follow-up in 2 weeks. L ast Assessment & Plan: Formatting of this note might be differ ent from the original. It has healed. Encounters Care Team Description Date Type Specialty Gisele Iniguez MA Liver mass 01/04/2021 Orders Only Internal Medicine Jermoy Silva MD 01/01/2021 Chart Note Internal Medicine Abdominal pain, RUQ 12/31/2020 Lab Visit Lab Jeromy Silva MD Abdominal Pain 12/30/2020 Nurse Internal Medicine Triage-Office Hours Jeromy Silva MD Calling For Orders (MRI abdomen ) 12/29/2020 Nurse Internal Medicine Triage-Office Hours Jeromy Silva MD Liver mass (Primary Dx); Abdominal pain, RUQ 12/25/2020 Office Visit Internal Medicine Link, Onbase 12/24/2020 Orders Only Jeromy Silva MD Results (CT scan abnormal) 12/24/2020 Telephone Internal Medicine Jeromy Silva MD Abdominal pain, RUQ (Primary Dx); 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 Office Visit Internal Medicine Provider, [employer]ystem_2, MODEL USER RUQ pain 12/15/2020 Imaging Radiology Jeromy Silva MD Abdominal Pain 12/14/2020 Nurse Internal Medicine Triage-Office Hours Link, Onbase 11/26/2020 [facility] Clinic Scan from Last 3 Months Immunizations Name Administration Dates Next Due COVID-19 mRNA LNP-S PF 08/13/2020, 08/13/2020, , 07/16/2020 (Moderna) INFLUENZA A&B TRIVALENT 03/18/2019, 02/19/2018, 04/2017 VAC ADJUVANTED PF (Adults=>65 y/o-FLUAD) INFLUENZA IIV3 HD (Adults 03/09/2016 =>65 y/o-FLUZONE HD) INFLUENZA QUADRIVALENT 02/07/2020 ADJUVANTED (FLUAD-Adults=>65 y/o) Influenza IIV3 MDV 03/10/2014 (Multi-dose vial) Influenza IIV3 PFree 05/28/2015 Pneumococcal Conjugate 06/11/2015 (13-valent) Pneumococcal 09/27/2003 Polysaccharide (23-valent) Td(adult), adsorbed 10/01/2007 Tdap 06/16/2016, 06/16/2016 Family History Medical History Relation Name Comments Arthritis Brother hip and back proble ms GI problems Brother choledocholithiasis Other Brother due to gallbla dder complications/sepsis/MRSA after he fractured hip Heart attack Father age 52 due to NE while driving. Alzheimer's disease Mother Diana age 9 2 due Alzheimer's Dementia, Chronic John Abdominal Pain, ASCVD, Hype rlipidemia. Breast cancer Paternal Aunt Other Sister She lived alone and was found in bed. Relation Name Status Comments Brother Father Mother Diana Lopez Paternal Aunt Sister Social History Date Tobacco Use Types Packs/Day Years Used Quit: 1986 Former Smoker Cigarettes 1 25 Smokeless Tobacco: Never Used Tobacco Cessation: Counseling Given: No Comments Alcohol Use Standard Drinks/Week On occasion [...] file Not on file Not on file Last Filed Vital Signs Reading Time Taken Comments Vital Sign 132/72 12/25/2020 11:30 AM CDT Blood Pressure 73 12/25/2020 11:30 AM CDT Pulse 36.6 C (97.9 F) 12/25/2020 11:30 AM CDT Temperature 18 12/25/2020 11:30 AM CDT Respiratory Rate 97% 12/25/2020 11:30 AM CDT Oxygen Saturation - - Inhaled Oxygen Concentration 90.4 kg (199 lb 4.8 oz) 12/25/2020 11:30 AM CDT Weight 167.1 cm (5' 5.8") 11/05/2020 4:12 PM CDT Height 32.36 11/05/2020 4:12 PM CDT Body Mass Index Plan of Treatment Health Maintenance Due Date Last Done Comments Zoster Vaccine (1 of 2) 1985 Annual Wellness Visit 09/17/2020 09/18/2019, 12/08/2016 Influenza Vaccine (#1) 2021 02/07/2020, 03/18/2019, 02/19/2018, Additional history exists DTaP,Tdap,and Td Vaccines 06/16/2026 06/16/2016, (2 - Td or Tdap) 06/16/2016, 10/01/2007 Pneumo-Vaccine: 65+Yrs Completed 06/11/2015, 09/27/2003 Pneumo-Vaccine: Peds (0-5 Completed 06/11/2015, Yrs) & At-Risk Patients 09/27/2003 (6-64 Yrs) COVID-19 Vaccine Completed 08/13/2020, 08/13/2020, 07/16/2020, Additional history exists HIB Vaccines Aged Out No longer eligible based on patient's age to complete this topic IPV Vaccines Aged Out No longer eligible based on patient's age to complete this topic Meningococcal Vaccine Aged Out No longer eligib le based on patient's age to complete this topic Rotavirus Vaccines Aged Out No longer eligible based on patient's age to complete this topic Procedures Comments Procedure Name Priority Date/Time Associated Diag nosis MRI ABDOMEN W/WO CONTRAST Routine 01/04/2021 Live r mass CBC WITH AUTO Routine 12/31/2020 Abdominal pain, RUQ DIFFERENTIAL 11:04 AM CDT COMPREHENSIVE METABOLIC Routine 12/31/2020 Abdomi nal pain, RUQ PANEL 11:04 AM CDT CBC AND DIFFERENTIAL Routine 12/31/2020 Abdominal pain, RUQ 11:04 AM CDT HM EXTERNAL CT SCAN 12/23/2020 12:00 AM CDT US ABDOMEN COMPLETE Routine 12/15/2020 RUQ pain 10:53 AM CDT HM PATHOLOGY EXTERNAL 12/10/2020 12:00 AM CDT from Last 3 Months Results * MRI Abdomen (with and without contrast) (01/04/2021) Modality Anatomical Region Laterality Magnetic Resonance Abdomen Narrative * CBC auto differential (12/31/2020 11:04 AM CDT) WBC 7.5 3.5 - 10.5 10E9/L [facility] RBC 4.45 3.90 - 5.03 10E12/L [facility] Hemoglobin 13.8 12.0 - 15.5 g/dL [facility] Hematocrit 44.1 34.9 - 44.5 % [facility] MCV 99.1 (H) 81.6 - 98.3 fL [facility] MCH 31.0 26.0 - 34.0 pg [facility] MCHC 31.3 31.0 - 37.0 g/dL [facility] RDW 13.5 11.9 - 15.5 % [facility] Platelets 271 150 - 450 10E9/L [facility] nRBC 0.00 <=0.00 10E9/L [facility] Neutrophils % 61.7 40.0 - 75.0 % [facility] Lymphocytes % 28.4 22.0 - 49.0 % [facility] Monocytes % 5.6 2.0 - 10.0 % [facility] Eosinophils % 3.1 <=5.0 % [facility] Basophils % 1.2 0.0 - 2.5 % [facility] Neutrophils 4.60 1.70 - 7.00 10E9/L [facility] Lymphocytes 2.12 0.90 - 2.90 10E9/L [facility] Monocytes 0.42 0.30 - 0.90 10E9/L [facility] Eosinophils 0.23 0.05 - 0.50 10E9/L [facility] Basophils 0.09 0.00 - 0.30 10E9/L [facility] % nRBC 0 % [facility] Specimen Blood Performing Organization Address City/State/ZIP Code P jacinta Number [facility] [address] [place] [address] * Comprehensive metabolic panel (12/31/2020 11:04 AM CDT) [facility] Signature Sodium 139 136 - 145 mmol/L [facility] Potassium 4.1 3.6 - 4.9 mmol/L [facility] Chloride 106 99 - 111 mmol/L [facility] CO2 28 20 - 36 mmol/L [facility] Anion Gap 5 [facility] Glucose 87 74 - 106 mg/dL [facility] Total Protein 6.6 5.7 - 8.2 g/dL [facility] Albumin 4.3 3.4 - 4.8 g/dL [facility] Calcium 9.7 8.3 - 10.6 mg/dL [facility] BUN, Bld 13 6 - 20 mg/dL [facility] Creatinine 0.80 0.40 - 1.10 mg/dL [facility] eGFR >59 >59 mL/min [facility] Total Bilirubin 0.7 0.0 - 1.2 mg/dL [facility] Alkaline 190 (H) 29 - 122 U/L [facility] Phosphatase LABORATORY ALT 25 10 - 46 U/L [facility] AST 24 16 - 37 U/L [facility] Specimen Blood Performing Organization Address City/State/ZIP Code P jacinta Number [facility] [address] [place] [address] * US ABDOMEN COMPLETE (12/15/2020 10:53 AM [...] 6 clinical variables at (best internet site) [email or web address] , used together with sonographic Liver Elastography, [...] and no abnormal masses are seen. FINAL from Last 3 Months Insurance Type Payer Benefit Subscriber ID Effective Phone Address Plan / Dates Group Medicare MEDICARE MEDICARE [id number] 2001-P [address] [place] [address] CIGNA MEDICARE SUPPLEMENT CIGNA [id number] 2019-P [address] MEDICARE [phone] [place], [place] [address] Advance Directives For more information, please contact: [phone] Patient Concert Manager Explanation Type Date Recorded Advance Directives and Living Will Power of Manager Benefit Care Teams Start Date End Date Cigarette Examiner Relationship Specialty 09/03/13 Jeromy Silva, PCP - [email or web address]
--- OUTSIDE RECORDS SUMMARY | 2021-02-07 15:48 | XMS REPORT | Encounter Summary ---
Author Author [facility] Address Unknown Phone Unavailable Care Team Providers Care Optical Laboratory Mechanic Name Role Phone Jeromy Silva MD PCP [phone] Reason for Referral * Consultation (Routine) - Closed Diagnoses / Procedures Referred By Contact Referred To Conta ct Specialty Diagnoses Liver mass Jeromy Silva MD [address] [address] Hematology/ Oncology Referral ID Status Reason Start Date Expiration Visits Vi sits Date Requested Authorized [id number] Closed Specialty Services 12/25/2020 12/25/2021 1 1 Required Reason for Visit * Reason Comments Results CT follow up Encounter Details Care Team Description Date Type Department Jeromy Silva MD [address] [address] [email or web address] Liver mass (Primary Dx); Abdominal pain, RUQ 12/25/2020 Office Visit Brian Del Rio [facility] [address] [place] [address] [id number] Social History Date Tobacco Use Types Packs/Day [...] on file documented as of this encounter Last Filed Vital Signs Reading Time Taken Comments Vital Sign 132/72 12/25/2020 11:30 AM CDT Blood Pressure 73 12/25/2020 11:30 AM CDT Pulse 36.6 C (97.9 F) 12/25/2020 11:30 AM CDT Temperature 18 12/25/2020 11:30 AM CDT Respiratory Rate 97% 12/25/2020 11:30 AM CDT Oxygen Saturation - - Inhaled Oxygen Concentration 90.4 kg (199 lb 4.8 oz) 12/25/2020 11:30 AM CDT Weight - - Height 32.36 11/05/2020 4:12 PM CDT Body Mass Index documented in this encounter Miscellaneous Notes * Assessment & Plan Note - Jeromy Silva MD - 12/25/2020 12:01 PM CDT Associated Problem(s): Abdominal pain, RUQ Patient presented to ER on 12/14/2020 with intermittent right upper quadrant pain for 2 months. She initially thought that she had adjusted her bra too tightly. Pain is worse after eating greasy meals. Last to 3 days she had having creased pain after eating. She had no nausea, vomiting or diarrhea. She had a normal bowel movement. Cell count and hemoglobin were normal. Her liver tests were n ormal. Alkaline phosphatase level was elevated 170. Lipase was 32. She receiv ed a dose of Tylenol. Patient was diagnosed with right upper quadrant pain like ly due to cholelithiasis. Patient was dismissed to home. Ultrasound on 12/15/2020 showed: 1. The liver is normal in size, and the echo texture is diffusely hyperechoic, consistent with hepatic steatosis ("fatty liver"), or other less li geovanna diffuse liver process. The patient does have risk factor(s) for fatty li deonte. Fatty liver can cause right upper quadrant/epigastric pain. Liver chemistri es may sometimes be normal with fatty liver. 2. There is a simple cyst in the spleen. It meets sonographic criteria for susie ignity and would not typically require specific imaging follow up unless preferr ed by the ordering provider or patient. 3. The remainder of the study is normal. Close additional attention is paid to the gallbladder. 4. At least some of the patient's symptoms are suggestive of biliary colic, plus the patient has one or more risk factors for gallbladder disease, so the questi on of a gallbladder functional disorder could be raised. Depending on the clinic al setting a sonographic gallbladder emptying study may be helpful. Its results correlate well with those of HIDA radioisotope gallbladder emptying studies, but it is less expensive, less time-consuming, and avoids radiation exposure and IV injections. She is tender over liver. CT abdomen/pelvis on 12/23/2020 showed: 1. Vague low-attenuation focus identifie d within the posterior medial aspect of the right hepatic lobe centered on image 24 measuring 2.4 x 2.4 cm, suspicious for malignancy. There is associated rota tion of the phrenic biliary ductal system in the adjacent portions of the right posterior hepatic lobe and right caudate lobe. This mass encases the proximal a spect of the right main portal vein causing luminal narrowing. 2. Enlarging splenic cystic focus measuring 3.7 x 2.9 cm. * Assessment & Plan Note - Jeromy Silva MD - 12/25/2020 11:58 AM CDT Associated Problem(s): Liver mass CT abdomen/pelvis on 12/23/2020 showed: 1. Vague low-attenuation focus identifie d within the posterior medial aspect of the right hepatic lobe centered on image 24 measuring 2.4 x 2.4 cm, suspicious for malignancy. There is associated rota tion of the phrenic biliary ductal system in the adjacent portions of the right posterior hepatic lobe and right caudate lobe. This mass encases the proximal a spect of the right main portal vein causing luminal narrowing. 2. Enlarging splenic cystic focus measuring 3.7 x 2.9 cm. I discussed the liver mass with the patient. Will need to be biopsied. She wou ld like to go to [facility] as her grandson works there. * Progress Notes - Roddy, Nataliya I, MA - 12/25/2020 11:20 AM CDT Patient is here for a follow up from CT scan. Patient has no concerns at this t viola. Medication updated per protocol Patient is due for: Shingrix declined AWV declined * Progress Notes - Jeromy Silva MD - 12/25/2020 11:20 AM CDT [facility] [address] [facility] [id number] 12/25/2020 Patient: Pearl Frias : 1935 Primary Care Provider: Jeromy Silva MD Subjective Chief Complaint Patient presents with Results CT follow up Pearl is a 85 y.o. female who had concerns including Results (CT follow up). RUQ Pain Follow-up: Patient presented to ER on 12/14/2020 with intermittent right upper quadrant pain for 2 months. She initially thought that she had adjusted her bra too tightly. Pain is worse after eating greasy meals. Last to 3 days she had having creased pain after eating. She had no nausea, vomiting or diarrhea. She had a normal bowel movement. Cell count and hemoglobin were normal. Her liver tests were n ormal. Alkaline phosphatase level was elevated 170. Lipase was 32. She receiv ed a dose of Tylenol. Patient was diagnosed with right upper quadrant pain like ly due to cholelithiasis. Patient was dismissed to home. Ultrasound on 12/15/2020 showed: 1. The liver is normal in size, and the echo texture is diffusely hyperechoic, consistent with hepatic steatosis ("fatty liver"), or other less li geovanna diffuse liver process. The patient does have risk factor(s) for fatty li deonte. Fatty liver can cause right upper quadrant/epigastric pain. Liver chemistri es may sometimes be normal with fatty liver. 2. There is a simple cyst in the spleen. It meets sonographic criteria for susie ignity and would not typically require specific imaging follow up unless preferr ed by the ordering provider or patient. 3. The remainder of the study is normal. Close additional attention is paid to the gallbladder. 4. At least some of the patient's symptoms are suggestive of biliary colic, plus the patient has one or more risk factors for gallbladder disease, so the questi on of a gallbladder functional disorder could be raised. Depending on the clinic al setting a sonographic gallbladder emptying study may be helpful. Its results correlate well with those of HIDA radioisotope gallbladder emptying studies, but it is less expensive, less time-consuming, and avoids radiation exposure and IV injections. She still has pain in right side of her abdomen. It is hard for her to find a c omfortable way to sleep. She has a dull aching more that a pain. She is achy i f she pushes on her right side. She has been under a severe amount of stress wi th moving. She has no one to help her move except her [address] abdomen/pelvis on 12/23/2020 showed: 1. Vague low-attenuation focus identifie d within the posterior medial aspect of the right hepatic lobe centered on image 24 measuring 2.4 x 2.4 cm, suspicious for malignancy. There is associated rota tion of the phrenic biliary ductal system in the adjacent portions of the right posterior hepatic lobe and right caudate lobe. This mass encases the proximal a spect of the right main portal vein causing luminal narrowing. 2. Enlarging splenic cystic focus measuring 3.7 x 2.9 cm. Outpatient Medications Marked as Taking for the 12/25/20 encounter (Office Visit) with Jeromy Silva MD Medication Sig amLODIPine (NORVASC) 5 MG tablet Take 1 tablet (5 mg total) by mouth daily. aspirin (ECOTRIN LOW STRENGTH) 81 MG EC tablet Take 81 mg by mouth daily. Cholecalciferol (VITAMIN D3) 5000 units CAPS Take 1 capsule by mouth daily. cyclobenzaprine (FLEXERIL) 10 MG tablet Take 10 mg by mouth 3 (three) times daily as needed. DULoxetine (CYMBALTA) 30 MG capsule Take 1 capsule (30 mg total) by mouth fredis verduzco. Indications: Major Depressive Disorder fish oil (OMEGA-3) 1000 MG capsule Take 4,000 mg by mouth See Admin Instruct ions. Takes twice a week levothyroxine (SYNTHROID) 75 MCG tablet Take 1 tablet by mouth once daily losartan (COZAAR) 50 MG tablet Take 1 tablet (50 mg total) by mouth daily. I ndications: High Blood Pressure Disorder Lutein 40 MG CAPS Take by mouth. multivitamin (OCUVITE-LUTEIN) TABS tablet Take 1 tablet by mouth daily. vitamin B-12 (CYANOCOBALAMIN) 1000 MCG tablet Take 1 tablet (1,000 mcg total ) by mouth daily. vitamin C (ASCORBIC ACID) 500 MG tablet Take 500 mg by mouth daily. vitamin E 400 units capsule Take 400 Units by mouth daily. Allergies Allergen Reactions Donepezil Hcl [Donepezil] Nausea Only Nausea Lisinopril Other (See Comments) Cough. Stopped by cardiololgy, 12/13/17. Sulfamethoxazole-Trimethoprim Other (See Comments) made pt ill Past Medical History: Diagnosis Date Acute non intractable tension-type headache Sed rate: 25, 11/09/16. Anxiety Breast pain Left breast has significant tenderness. I do not feel any mass but painful ove r her biopsy scar. May need to see surgery. Chest pain, unspecified chest pain type Echo, 06/2011, showed LVEF 60% with mild diastolic dysfunction. Stress test, luci mckeon, 07/26/11. No significant CAD found on heart cath, 10/2004. Chronic fatigue B12 level: normal, 12/18/15. Chronic low back pain Sees chiropractor as needed. Closed fracture of rib, right, with routine healing, subsequent encounter Right sided after fall, 08/07/12. Bone scan, 08/21/12, showed right 4th and 5th rib fractures. Costochondritis She was tender over chest wall and doing a lot of yard work. Stress test: norm al, 11/04/15. Depression, unspecified depression type She still worries about her family and daughter who lost her job but she is man aging. Dry eyes, bilateral She has severe dry eyes. She sees Dr. Verduzco. She is using eye drops four fanny es daily but she is interested in a prescription medication. Encounter for other specified special examinations [id number] - Back Spasm Encounter for other specified special examinations [id number] - [facility] 11-21-04: Back pain, and Chest pain. Transferred to [facility] . Cath showed no significant CAD. Pain later attributed to muscle strain. Essential hypertension FUO (fever of unknown origin) 11/02/2018 Patient presented to ER on 11/02/18 with fever chills back pain and hip pain. Adrienne son reported being in her yard doing extensive weeding. On getting back into he r house she noticed about 8 ticks on her legs and also 3 spider bites. Patient a lso notes that she has 8-12 cats and most of them had been ill the week before w ith a diarrheal illness for which the bet had prescribed some antibiotics. Case m Gallbladder polyp 03/28/2017 0.4 cm gallbladder polyp noted on u/s, 03/28/17. Radiologist recommended yearl y f/u for 2-3 years since it is <0.6 cm. Hemorrhoids after childbirth Hypercholesterolemia She could not tolerate zocor. She is trying hard to work on her diet. She kno ws that she needs to exercise more. Niacin did cause hot flashes. Hypothyroidism, adult Idiopathic peripheral neuropathy B12 level: normal, 12/18/15. Impaired fasting glucose Fasting glucose of 107 but a1c only 5.2%, 03/09/15. Leg pain, left Left Tib/fib,Ankle x-ray, knee: negative, 09/19/11. Lumbar disc herniation MRI, 08/22/16, showed posterior annular tear and bulging disk at L3/4 and L4/5. MCI (mild cognitive impairment) MMSE score 25/30. All of the questions that she missed were serial 7s. Predict ed Median for age and years of education is 28, 09/12/18. Memory loss Her mother had dementia. She feels more forgetful. Her family has noted some changes. MMSE score of 26/30, 11/12/15. (Medican score for age and education 27 .) Aricept started, 11/12/15. B12 level: normal, 12/18/15. NAFLD (nonalcoholic fatty liver disease) Fatty liver noted on CT scan 03/20/18. Neuropathic pain Mid thoracic spine around chest. She did have a tick bite a while ago. It is now progessing more inferiorly but also more superiorly. MRI, 12/26/13 showed mi nimal degenerative arthritis or disk disease. Lyme titer: negative, 12/25/13. V itamin A and B12 levels: normal, 12/25/13. B12 level: normal, 12/18/15. Obesity (BMI 30.0-34.9) Osteopenia Bone Density in 2005 showed osteopenia. Follow-up in 2010 continued to show os teopenia. Peripheral neuropathy She has a sense like her feet are leather and tight. It feels like the plantar feet are tight. Her feet never improve. It now seems to be progressing more p roximally. EMG, 01/04/18: sensory peripheral neuropathy on the bilateral lower e xtremities. Pes planus of both feet Primary osteoarthritis involving multiple joints Right thumb and right knee pain consistent with osteoarthritis. Discussed NSAI Ds/tylenol and will try capsaicin cream prn, 03/06/13. Reactive depression She still worries about her family and daughter who lost her job but she is man aging. Right wrist pain Aleve is controlling the pain. X-rays: negative, 01/11/13. Spider bite wound, accidental or unintentional, subsequent encounter Seems to be healing. Will stop bactrim, 03/09/15. Traumatic ulcer of left lower extremity with necrosis of muscle (HCC) Seems to be healed but still has some local pain to area. Xray: negative for f oreign body, 06/30/15. Tubulovillous adenoma Follow-up colonoscopy, 02/21/12, showed no polyps. Vitamin D deficiency 03/03/2010 25-OH vitamin D level, 27, 03/03/2010 and 28, 06/09/10 and 36, 03/10/11 and 34, 1 and 29, 03/10/14. Vitamin D3 increased to 2000 units/day. Past Surgical History: Procedure Laterality Date APPENDECTOMY BUNIONECTOMY CARDIAC CATHETERIZATION 11/13/2017 Normal coronary arteries. LVEF 70-75%. LV diastolic dysfunction. Dr. Anne. CARDIOVASCULAR STRESS TEST 11/04/2015 Normal lexiscan COLONOSCOPY 02/21/2012 Dr. García. Mild to moderate sigmoid diverticulosis and external hemorrhoi ds. DILATION AND CURETTAGE OF UTERUS 12/04/2014 - [facility] ECHOCARDIOGRAM 02/28/2017 Normal left ventricular size and function, LVEF 55%. No regional wall motion ab normalities. Mild concentric LVH with grade 1 diastolic dysfunction. No severe v alvular mellitus. ELECTROMYOGRAPHY 01/04/2018 Sensory peripheral neuropathy on bilateral LE EMPORIA IM PAST PROCEDURE [id number] - Skin Cancer, Right Eyebrow EMPORIA IM PAST PROCEDURE [id number] - Cataract Extraction-Bilateral EMPORIA IM PAST PROCEDURE [id number] - Breast Biopsy, Left EMPORIA IM PAST PROCEDURE [id number] - Breast Biopsy - Right HM STRESS TEST 09/05/2018 Negative TUBAL LIGATION Patient's medications, allergies, past medical, surgical, social and family hist ories were reviewed and updated as appropriate. Review of Systems Constitutional: Positive for malaise/fatigue. Negative for fever and weight loss . Gastrointestinal: Positive for abdominal pain. Objective Visit Vitals BP 132/72 (BP Location: Left arm, Patient Position: Sitting, Cuff Size: Large Ad ult) Pulse 73 Temp 97.9 F (36.6 C) (Temporal) Resp 18 Wt 199 lb 4.8 oz (90.4 kg) SpO2 97% BMI 32.36 kg/m Physical Exam Vitals and nursing note reviewed. Constitutional: Appearance: Normal appearance. Neurological: Mental Status: She is alert. Psychiatric: Mood and Affect: Mood normal. Behavior: Behavior normal. Thought Content: Thought content normal. Judgment: Judgment normal. Assessment/Plan 1. Liver mass Assessment & Plan: CT abdomen/pelvis on 12/23/2020 showed: 1. Vague low-attenuation focus identifie d within the posterior medial aspect of the right hepatic lobe centered on image 24 measuring 2.4 x 2.4 cm, suspicious for malignancy. There is associated rota tion of the phrenic biliary ductal system in the adjacent portions of the right posterior hepatic lobe and right caudate lobe. This mass encases the proximal a spect of the right main portal vein causing luminal narrowing. 2. Enlarging splenic cystic focus measuring 3.7 x 2.9 cm. I discussed the liver mass with the patient. Will need to be biopsied. She wou ld like to go to [facility] as her grandson works there. Orders: - Ambulatory referral to Hematology / Oncology 2. Abdominal pain, RUQ Assessment & Plan: Patient presented to ER on 12/14/2020 with intermittent right upper quadrant pain for 2 months. She initially thought that she had adjusted her bra too tightly. Pain is worse after eating greasy meals. Last to 3 days she had having crease d pain after eating. She had no nausea, vomiting or diarrhea. She had a normal bowel movement. Cell count and hemoglobin were normal. Her liver tests were n ormal. Alkaline phosphatase level was elevated 170. Lipase was 32. She receiv ed a dose of Tylenol. Patient was diagnosed with right upper quadrant pain like ly due to cholelithiasis. Patient was dismissed to home. Ultrasound on 12/15/2020 showed: 1. The liver is normal in size, and the echo texture is diffusely hyperechoic, consistent with hepatic steatosis ("fatty liver"), or other less li geovanna diffuse liver process. The patient does have risk factor(s) for fatty li deonte. Fatty liver can cause right upper quadrant/epigastric pain. Liver chemistri es may sometimes be normal with fatty liver. 2. There is a simple cyst in the spleen. It meets sonographic criteria for susie ignity and would not typically require specific imaging follow up unless preferr ed by the ordering provider or patient. 3. The remainder of the study is normal. Close additional attention is paid to the gallbladder. 4. At least some of the patient's symptoms are suggestive of biliary colic, plus the patient has one or more risk factors for gallbladder disease, so the questi on of a gallbladder functional disorder could be raised. Depending on the clinic al setting a sonographic gallbladder emptying study may be helpful. Its results correlate well with those of HIDA radioisotope gallbladder emptying studies, but it is less expensive, less time-consuming, and avoids radiation exposure and IV injections. She is tender over liver. CT abdomen/pelvis on 12/23/2020 showed: 1. Vague low-attenuation focus identifie d within the posterior medial aspect of the right hepatic lobe centered on image 24 measuring 2.4 x 2.4 cm, suspicious for malignancy. There is associated rota tion of the phrenic biliary ductal system in the adjacent portions of the right posterior hepatic lobe and right caudate lobe. This mass encases the proximal a spect of the right main portal vein causing luminal narrowing. 2. Enlarging splenic cystic focus measuring 3.7 x 2.9 cm. There are no discontinued medications. No follow-ups on file. Jeromy Silva MD Electronic Signature 12/25/2020 12:01 PM documented in this encounter Plan of Treatment Order Schedule Name Type Priority Associated Diag noses Ordered: 12/25/2020 Ambulatory referral to Outpatient Routine Liver m ass Hematology / Oncology Referral documented as of this encounter Visit Diagnoses Diagnosis Liver mass - Primary Unspecified disorder of liver Abdominal pain, RUQ Abdominal pain, right upper quadrant documented in this encounter Additional Health Concerns Noted Time Assessment 03/14/2014 9:55 AM CDT A fall risk assessment has been complet ed for the patient documented as of this encounter Care Teams Start Date End Date Optical Laboratory Mechanic Relationship Specialty 09/03/13 Jeromy Silva, PCP - General [email or web address] documented as of this encounter
--- OUTSIDE RECORDS SUMMARY | 2021-02-07 15:48 | XMS REPORT | Encounter Summary ---
Author Author [facility] Address Unknown Phone Unavailable Care Team Providers Care Preflight Mechanic Name Role Phone Jeromy Silva MD PCP [phone] Reason for Referral * Imaging Prior Auth (Routine) - Closed Diagnoses / Procedures Referred By [facility] Liver [facility] Procedures MRI Abdomen (with and without contrast) Jeromy Silva MD [address] [place] [address] Referral ID Status Reason Start Date Expiration Visits Vi sits Date Requested Authorized [id number] Closed Specialty Services 12/30/2020 12/30/2021 1 1 Required Reason for Visit * Reason Onset Date Comments Calling For Orders 12/29/2020 MRI abdomen Encounter Details Care Team Description Date Type Department Jeromy Silva MD [address] [place] [address] [email or web address] For Orders (MRI abdomen ) 12/29/2020 Nurse Brian gatica Triage-Office Clinic Hours [address] [place] [address] Social History Date Tobacco Use Types Packs/Day [...] encounter Miscellaneous Notes * Telephone Encounter - Arlin Morris LPN - 12/30/2020 10:28 AM CDT Order placed Pippa in referrals notified. * Telephone Encounter - Jeromy Silva MD - 12/30/2020 8:25 AM CDT That is okay. * Telephone Encounter - Awilda Flores RN - 12/30/2020 8:19 AM CDT Pippa with referrals has called stating that [facility] is requesti ng the MRI of abdomen to be with and without contrast. Ok to order MRI abdomen with and without contrast? Dx: liver mass? * Telephone Encounter - Jeromy Silva MD - 12/29/2020 2:20 PM CDT MRI abdomen with contrast at [facility] diagnosis: liver mass * Telephone Encounter - Awilda Flores RN - 12/29/2020 1:03 PM CDT Pippa with Referrals has called today stating that with referral to [facility] ology due to liver mass they are requesting patient have an MRI of the abdomen w ith contrast. [facility] is booked out for 4 weeks so they are OK with patient receiving at [facility]. Dr. Silva--- OK to order MRI abdomen with contrast? Dx: Liver mass? Patient will need to be notified about MRI as she is unaware prior to scheduling per Pippa. Thanks. documented in this encounter Plan of Treatment Not on filedocumented as of this encounter Results * MRI Abdomen (with and without contrast) (01/04/2021) Modality Anatomical Region Laterality Magnetic Resonance Abdomen Narrative documented in this encounter Visit Diagnoses Diagnosis Liver mass - Primary Unspecified disorder of liver documented in this encounter Additional Health Concerns Noted Time Assessment 03/14/2014 9:55 AM CDT A fall risk assessment has been complet ed for the patient documented as of this encounter Care Teams Start Date End Date Preflight Mechanic Relationship Specialty 09/03/13 Jeromy Silva, PCP - General [email or web address] documented as of this encounter
--- OUTSIDE RECORDS SUMMARY | 2021-02-07 15:48 | XMS REPORT | Encounter Summary ---
Author Author [facility] Organization [facility] Address Unknown Phone Unavailable Care Team Providers Care Check Grader Name Role Phone Jeromy Silva MD PCP [phone] Encounter Details Care Team Description Date Type Department Link, Onbase 12/24/2020 Orders Only [facility] [address] [id number] [place] [address] Social History Date Tobacco Use Types Packs/Day [...] as of this encounter Plan of Treatment Date/Time Name Type Priority Associated Diag noses 12/10/2020 12:00 AM CDT PATHOLOGY EXTERNAL Pathology and Cytology 12/23/2020 12:[address] SCAN Imaging Order Schedule Name Type Priority Associated Diag noses Ordered: 12/24/2020 EXTERNAL LAB TEST Lab documented as of this encounter Procedures Comments Procedure Name Priority Date/Time Associated Diag nosis HM EXTERNAL CT SCAN 12/23/2020 12:00 AM CDT PATHOLOGY EXTERNAL 12/10/2020 12:00 AM CDT documented in this encounter Visit Diagnoses Not on filedocumented in this encounter Additional Health Concerns Noted Time Assessment 03/14/2014 9:55 AM CDT A fall risk assessment has been complet ed for the patient documented as of this encounter Care Teams Start Date End Date Check Grader Relationship Specialty 09/03/13 Jeromy Silva, PCP - General [email or web address] [place] [facility] [place] documented as of this encounter
--- OUTSIDE RECORDS SUMMARY | 2021-02-07 15:48 | XMS REPORT | Encounter Summary ---
Author Author [facility] Organization [facility] Address Unknown Phone Unavailable Care Team Providers Care Office Automation Technician Name Role Phone Jeromy Silva MD PCP [phone] Encounter Details Care Team Description Date Type Department Gisele Iniguez MA Liver mass 01/04/2021 Orders Only [facility] Medicine - [place] [address] [place] [address] Social History Date Tobacco Use Types Packs/Day [...] W/WO CONTRAST Routine 01/04/2021 Live r mass documented in this encounter Results * MRI Abdomen (with and without contrast) (01/04/2021) Modality Anatomical Region Laterality Magnetic Resonance Abdomen Narrative documented in this encounter Visit Diagnoses Diagnosis Liver mass Unspecified disorder of liver documented in this encounter Additional Health Concerns Noted Time Assessment 03/14/2014 9:55 AM CDT A fall risk assessment has been complet ed for the patient documented as of this encounter Care Teams Start Date End Date Office Automation Technician Relationship Specialty 09/03/13 Jeromy Silva, PCP - General [email or web address] documented as of this encounter
--- OUTSIDE RECORDS SUMMARY | 2021-02-07 15:48 | XMS REPORT | Encounter Summary ---
Author Author [facility] Organization [facility] Address Unknown Phone Unavailable Care Team Providers Care Instrumentation Engineer Name Role Phone Jeromy Silva MD PCP [phone] Reason for Visit * Reason Onset Date Comments Results 12/24/2020 CT scan abnormal Encounter Details Care Team Description Date Type Department Jeromy Silva MD [address] [address] [email or web address] [facility] Results (CT scan abnormal) 12/24/2020 Telephone Brian Subramanian [facility] Medicine - [place] [address] [place] [id number] Social History Date Tobacco Use Types Packs/Day [...] encounter Miscellaneous Notes * Telephone Encounter - Elaine Orosco LPN - 12/24/2020 8:10 AM CDT Called patient and scheduled for tomorrow at 11:20. * Telephone Encounter - Jeromy Silva MD - 12/24/2020 5:[address] scan showed an abnormal area in her liver. See if I could see her tomorr ow at 11:20 to discuss. documented in this encounter Plan of Treatment Not on filedocumented as of this encounter Visit Diagnoses Diagnosis Abdominal pain, RUQ Abdominal pain, right upper quadrant Liver mass Unspecified disorder of liver documented in this encounter Additional Health Concerns Noted Time Assessment 03/14/2014 9:55 AM CDT A fall risk assessment has been complet ed for the patient documented as of this encounter Care Teams Start Date End Date Instrumentation Engineer Relationship Specialty 09/03/13 Jeromy Silva, PCP - General [email or web address] documented as of this encounter
--- OUTSIDE RECORDS SUMMARY | 2021-02-07 15:48 | XMS REPORT | Encounter Summary ---
Author Author [facility][Note 3] Address Unknown Phone Unavailable Care Team Providers Care Barrel Builder Name Role Phone Jeromy Silva MD PCP [phone] Reason for Referral * Surgical (Routine) - Closed Diagnoses / Procedures Referred By Contact Referred To Conta ct Specialty Diagnoses Abdominal pain, RUQ Jeromy Silva MD [address] [place] [address] Dudley Caceres MD [address] [place] [address] Referral ID Status Reason Start Date Expiration Visits Vi sits Date Requested Authorized [id number] Closed Specialty Services 12/23/2020 12/23/2021 1 1 Required * Imaging Prior Auth (Routine) - Closed Diagnoses / Procedures Referred By Contact Referred To Conta ct Specialty Diagnoses Abdominal pain, RUQ Procedures CT Abdomen Pelvis (with IV contrast) Jeromy Silva MD [address] [place] [address] Referral ID Status Reason Start Date Expiration Visits Vi sits Date Requested Authorized [id number] Closed Specialty Services 12/23/2020 12/23/2021 1 1 Required Reason for Visit * Reason Comments Abdominal Pain ER follow up Encounter Details Care Team Description Date Type Department Jeromy Silva MD [address] [place] [address] [email or web address] Abdominal pain, RUQ (Primary Dx); 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 Office Visit Brian Subramanian [facility] [address] [place] [address] Social History Date Tobacco Use Types Packs/Day [...] Signs Reading Time Taken Comments Vital Sign 132/68 12/23/2020 10:43 AM CDT Blood Pressure 79 12/23/2020 10:43 AM CDT Pulse 37.3 C (99.2 F) 12/23/2020 10:43 AM CDT Temperature 16 12/23/2020 10:43 AM CDT Respiratory Rate 97% 12/23/2020 10:43 AM CDT Oxygen Saturation - - Inhaled Oxygen Concentration 90.9 kg (200 lb 8 oz) 12/23/2020 10:43 AM CDT Weight - - Height 32.56 11/05/2020 4:12 PM CDT Body Mass Index documented in this encounter Miscellaneous Notes * Assessment & Plan Note - Jeromy Silva MD - 12/23/2020 11:09 AM CDT Associated Problem(s): Abdominal pain, RUQ Patient [...] IV injections. She is tender over liver. I will check CT abdomen/pelvis and set up with Dr. Gera andrade. * Addendum Note - Arlin Morris LPN - 12/23/2020 10:20 AM CDT Addended by: ARLIN MORRIS on: 12/23/2020 11:22 AM Modules accepted: Orders * Progress Notes - Nataliya Pereyra MA - 12/23/2020 10:20 AM CDT Patient is here for a hospital/ER follow up. Patient reports she continue to hav e a dull/achy pain to right side of abdomin. Reports pain is constant and tender to touch. Medication updated per protocol Patient is due for: Shingrix- declined at time AWV - declined - patient will be moving next month. PHQ-9: 0 Reports no depression- has life changing stressors. * Progress Notes - Jeromy Silva MD - 12/23/2020 10:20 AM CDT [facility] [place] [address] [place] [address] 12/23/2020 Patient: Pearl Frias : 1935 Primary Care Provider: Jeromy Silva MD Subjective Chief Complaint Patient presents with Abdominal Pain ER follow up Pearl is a 85 y.o. female who had concerns including Abdominal Pain (ER follo w up). ER Follow-up: Patient presented to ER on 12/14/2020 [...] move except her 60 year old daughter. Outpatient Medications Marked as Taking for the 12/23/20 encounter (Office Visit) with Jeromy Silva MD [...] 1 capsule (30 mg total) by mouth da dax. Indications: Major Depressive Disorder fish oil (OMEGA-3) [...] a lot of yard work. Stress test: max al, 11/04/15. Depression, unspecified depression type She [...] for other specified special examinations [id number] - [facility] 11-21-04: Back pain, and Chest pain. Transferred to [facility] . Cath showed no significant CAD. Pain [...] she is man aging. Right wrist pain Alecrow is controlling the pain. X-rays: negative, 01/11/13. [...] DILATION AND CURETTAGE OF UTERUS 12/04/2014 - [facility] ECHOCARDIOGRAM 02/28/2017 Normal left ventricular size and [...] appropriate. Review of Systems Constitutional: Positive for weight loss. Negative for fever and malaise/fatigue . Appetite loss Respiratory: Positive for shortness of breath. Negative for cough. Cardiovascular: Negative for chest pain, palpitations and leg swelling. Gastrointestinal: Positive for abdominal pain. Negative for constipation and sy rrhea. She is not constipated but she has more trouble keeping her bowels moving. Genitourinary: Negative for dysuria and frequency. Objective Visit Vitals BP 132/68 (BP Location: Left arm, Patient Position: Sitting, Cuff Size: Large Ad ult) Pulse 79 Temp 99.2 F (37.3 C) (Temporal) Resp 16 Wt 200 lb 8 oz (90.9 kg) SpO2 97% BMI 32.56 kg/m Physical Exam Vitals and nursing note reviewed. Constitutional: General: She is not in acute distress. Appearance: She is not diaphoretic. HENT: Head: Normocephalic and atraumatic. Left Ear: External ear normal. Cardiovascular: Rate and Rhythm: Normal rate and regular rhythm. Heart sounds: Normal heart sounds. No murmur heard. No friction rub. No gallop. Pulmonary: Effort: Pulmonary effort is normal. No respiratory distress. Breath sounds: Normal breath sounds. No wheezing or rales. Chest: Chest wall: No tenderness. Abdominal: General: Bowel sounds are normal. There is no distension. Palpations: Abdomen is soft. There is no mass. Tenderness: There is abdominal tenderness in the right upper quadrant. There is no guarding or rebound. Musculoskeletal: General: Normal range of motion. Cervical back: Normal range of motion and neck supple. Skin: General: Skin is warm and dry. Neurological: Mental Status: She is alert and oriented to person, place, and time. Cranial Nerves: No cranial nerve deficit. Psychiatric: Mood and Affect: Mood and affect normal. Cognition and Memory: Memory normal. Judgment: Judgment normal. Assessment/Plan 1. Abdominal pain, RUQ Assessment & Plan: Patient [...] IV injections. She is tender over liver. I will check CT abdomen/pelvis and set up with Dr. Gera andrade. Orders: - CT Abdomen Pelvis (with IV contrast); Future - Ambulatory referral to General Surgery 2. Insufficiency of posterior tibial tendon There are no discontinued medications. Return if symptoms worsen or fail to improve. Jeromy Silva MD Electronic Signature 12/23/2020 11:12 AM documented in this encounter Plan of Treatment Order Schedule Name Type Priority Associated Diag noses Expected: 12/23/2020, Expires: CT Abdomen Pelvis (with Imaging Routine Abdomi nal pain, RUQ IV contrast) Expected: 12/23/2020 (Approximate), Expi res: 02/23/2022 Creatinine, serum Lab Routine Abdominal pa in, RUQ Order Schedule Name Type Priority Associated Diag noses Ordered: 12/23/2020 Ambulatory referral to Outpatient Routine Abdomin al pain, RUQ General Surgery Referral documented as of this encounter Visit Diagnoses Diagnosis Abdominal pain, RUQ - Primary Abdominal pain, right upper quadrant Insufficiency of posterior tibial tendo n documented in this encounter Additional Health Concerns Noted Time Assessment 03/14/2014 9:55 AM CDT A fall risk assessment has been complet ed for the patient documented as of this encounter Care Teams Start Date End Date Barrel Builder Relationship Specialty 09/03/13 Jeromy Silva, PCP - General [email or web address] [place] documented as of this encounter
--- OUTSIDE RECORDS SUMMARY | 2021-02-07 15:48 | XMS REPORT | Encounter Summary ---
Author Author [facility] Organization [facility] Address Unknown Phone Unavailable Care Team Providers Care Graphic Design Assistant Name Role Phone Jeromy Silva MD PCP [phone] Reason for Visit * Reason Onset Date Comments Abdominal Pain 12/30/2020 Encounter Details Care Team Description Date Type Department Jeromy Silva MD [address] [address] [email or web address] [place] Abdominal Pain 12/30/2020 Nurse Brian Rincon [facility] Triage-Office Clinic Hours [address] [place] [address] Social History Date Tobacco Use Types Packs/Day [...] encounter Miscellaneous Notes * Telephone Encounter - Gabino Villarreal RN - 12/30/2020 3:32 PM CDT Patient notified of recommendations. Lab orders placed. She may do at [facility] tomorrow or wait until Monday when she is in [place] for MRI. Notified to go to ER if worsens. * Telephone Encounter - Lynn Boyd LPN - 12/30/2020 12:06 PM CDT LVM for pt to return call for recommendations. * Telephone Encounter - Jeromy Silva MD - 12/30/2020 10:56 AM CDT Tylenol will be okay to use as needed. Have her repeat CBC with differential an d nonfasting CMP and I will see what her MRI looks like. If her pain gets worse then she can go to the ER. * Telephone Encounter - Awilda Flores RN - 12/30/2020 10:44 AM CDT Pippa with referrals has called on patient today stating that she was speaking with patient about her MRI of her abodmen when she informed her that she was hav ing abdominal pain. Patient states that this has been ongoing pain to her RUQ/right side of abdomen. Patient notes that this pain has been gradual for the past 6 months and seems to have gotten worse today. Patient describes the pain as constant with times when her pain does get worse such as after she eats. Patient notes that the pain will diminish after awhile but anytime she eats it gets worse. Patient rates her pain as a 5-6/10. Patient describes the pain as a heavy dull ache. Patient has had x 1 episode of diarrhea but thinks this is nerve related. No n/v, fever, bloody stool. Patient has tried TUMS awhile ago and this has not helped. This has been ongoing pain so I did not send to ER per RN Nurse Triage note joyce mmends. If WTD feels like this is appropriate I can let patient know that. I informed patient not to take Tylenol due to her liver issue--- what would you recommend ? IF we get response back before 1130 we are to call patient home number at [phone]. If after 11:30am we are to call cell phone at [phone]. Thank you. Answer Assessment - Initial Assessment Questions 1. LOCATION: "Where does it hurt?" Right side; RUQ abdomen 2. RADIATION: "Does the pain shoot anywhere else?" (e.g., chest, back) At times the pain radiates to her back. Not currently. 3. ONSET: "When did the pain begin?" (e.g., minutes, hours or days ago) This has been ongoing for about 6 months and today the pain seems to be wors e than normal. 4. SUDDEN: "Gradual or sudden onset?" Gradual 5. PATTERN "Does the pain come and go, or is it constant?" Constant pain that is worse after she eats. Seems to hurt more after she eats. P vandana just ate a bowl of cereal and patient pain started hurting about 15 minut es ago. Patient notes that her pain will let up though. 6. SEVERITY: "How bad is the pain?" (e.g., Scale 1-10; mild, moderate, or sever e) Heavy dull ache type of pain. 5-11/05. 7. RECURRENT SYMPTOM: "Have you ever had this type of abdominal pain before?" If so, ask: "When was the last time?" and "What happened that time?" This has been ongoing. 8. CAUSE: "What do you think is causing the abdominal pain?" Liver issues 9. RELIEVING/AGGRAVATING FACTORS: "What makes it better or worse?" (e.g., moveme nt, antacids, bowel movement) Not eating. 10. OTHER SYMPTOMS: "Has there been any vomiting, diarrhea, constipation, or uri ne problems?" Patient reports diarrhea that started this AM; patient states that she did have x 1 episode. No blood seen. Patient states that she thinks this may be nerve rel ated. 11. : "Is there any chance you are ?" "When was your last menst rual period?" No. Protocols used: ABDOMINAL PAIN - FEMALE-A-OH documented in this encounter Plan of Treatment Not on filedocumented as of this encounter Results * Comprehensive metabolic panel (12/31/2020 11:04 AM CDT) Sodium 139 136 - 145 mmol/L [facility] Potassium 4.1 3.6 - 4.9 mmol/L [facility] Chloride 106 99 - 111 mmol/L [facility] CO2 28 20 - 36 mmol/L [facility] Anion Gap 5 [facility] Glucose 87 74 - 106 mg/dL [facility] Total Protein 6.6 5.7 - 8.2 g/dL [facility] Albumin 4.3 3.4 - 4.8 g/dL [facility] Calcium 9.7 8.3 - 10.6 mg/dL [facility] BUN, Bld 13 6 - 20 mg/dL [facility] Creatinine 0.80 0.40 - 1.10 mg/dL [facility] eGFR >59 >59 mL/min [facility] Total Bilirubin 0.7 0.0 - 1.2 mg/dL [facility] Alkaline 190 (H) 29 - 122 U/L [facility] Phosphatase [facility] ALT 25 10 - 46 U/L [facility] AST 24 16 - 37 U/L [facility] Specimen Blood Performing Organization Address City/State/ZIP Code P jacinta Number [facility] [address] [place] [address] documented in this encounter Visit Diagnoses Diagnosis Abdominal pain, RUQ - Primary Abdominal pain, right upper quadrant documented in this encounter Additional Health Concerns Noted Time Assessment 03/14/2014 9:55 AM CDT A fall risk assessment has been complet ed for the patient documented as of this encounter Care Teams Start Date End Date Graphic Design Assistant Relationship Specialty 09/03/13 Jeromy Silva, PCP - General [email or web address] documented as of this encounter
--- OUTSIDE RECORDS SUMMARY | 2021-02-07 15:48 | XMS REPORT | Encounter Summary ---
Author Author [facility] Organization [facility] Address Unknown Phone Unavailable Care Team Providers Care Deposition Reporter Name Role Phone Jeromy Silva MD PCP [phone] Encounter Details Care Team Description Date Type Department Abdominal pain, RUQ 12/31/2020 [facility] [address] [place] [phone] Social History Date Tobacco Use Types Packs/Day [...] Procedure Name Priority Date/Time Associated Diag nosis CBC WITH AUTO Routine 12/31/2020 Abdominal pain, RUQ DIFFERENTIAL 11:04 AM CDT CBC AND DIFFERENTIAL Routine 12/31/2020 Abdominal pain, RUQ 11:04 AM CDT COMPREHENSIVE METABOLIC Routine 12/31/2020 Abdomi nal pain, RUQ PANEL 11:04 AM CDT documented in this encounter Results * CBC auto differential (12/31/2020 11:04 AM CDT) Pathologist [facility] WBC 7.5 3.5 - 10.5 10E9/L [facility] RBC 4.45 3.90 - 5.03 10E12/L [facility] Hemoglobin 13.8 12.0 - 15.5 g/dL [facility] Hematocrit 44.1 34.9 - 44.5 % [facility] MCV 99.1 (H) 81.6 - 98.3 fL [facility]S [facility] MCH 31.0 26.0 - 34.0 pg [facility]S [facility] 234 [facility] MCHC 31.3 31.0 - 37.0 g/dL [facility] RDW 13.5 11.9 - 15.5 % [facility] Platelets 271 150 - 450 10E9/L [facility] nRBC 0.00 <=0.00 10E9/L [facility] Neutrophils % 61.7 40.0 - 75.0 % [facility] Lymphocytes % 28.4 22.0 - 49.0 % [facility] Monocytes % 5.6 2.0 - 10.0 % [facility] Eosinophils % 3.1 <=5.0 % [facility] Basophils % 1.2 0.0 - 2.5 % [facility] Neutrophils 4.60 1.70 - 7.00 10E9/L [facility]S IN[facility] 234 [facility] [place] [facility] Lymphocytes 2.12 0.90 - 2.90 10E9/L [facility]S INCLUDE 234 [facility] [place] [facility] Monocytes 0.42 0.30 - 0.90 10E9/L [facility]S INCLUDE 234 [facility] AT [facility] [place] [facility] Eosinophils 0.23 0.05 - 0.50 10E9/L [facility]S INCLUDE 234 [facility] [place] [facility] Basophils 0.09 0.00 - 0.30 10E9/L [facility] % nRBC 0 % [facility] Specimen Blood Performing Organization Address City/State/ZIP Code P jacinta Number [facility] [address] [place] [address] * Comprehensive metabolic panel (12/31/2020 11:04 AM CDT) [facility] Sodium 139 136 - 145 mmol/L [facility]S [facility] 234 [facility] Potassium 4.1 3.6 - 4.9 mmol/L [facility] Chloride 106 99 - 111 mmol/L [facility] CO2 28 20 - 36 mmol/L [facility] Anion Gap 5 [facility] Glucose 87 74 - 106 mg/dL COUNTS INCLUDE 234 [facility] Total Protein 6.6 5.7 - 8.2 g/dL [facility]S INCLUDE [facility] Albumin 4.3 3.4 - 4.8 g/dL [facility] Calcium 9.7 8.3 - 10.6 mg/dL [facility]S [facility] 234 [facility] BUN, Bld 13 6 - 20 mg/dL [facility] Creatinine 0.80 0.40 - 1.10 mg/dL [facility]S [facility]CLUDE 234 [facility] eGFR >59 >59 mL/min [facility] Total Bilirubin 0.7 0.0 - 1.2 mg/dL [facility] Alkaline 190 (H) 29 - 122 U/L [facility] Phosphatase [facility] ALT 25 10 - 46 U/L [facility]S [facility] [address] [facility] AST 24 16 - 37 U/L [facility] Specimen Blood Performing Organization Address City/State/ZIP Code P jacinta Number [facility] [address] [place] [address] documented in this encounter Visit Diagnoses Diagnosis Abdominal pain, RUQ Abdominal pain, right upper quadrant documented in this encounter Additional Health Concerns Noted Time Assessment 03/14/2014 9:55 AM CDT A fall risk assessment has been complet ed for the patient documented as of this encounter Care Teams Start Date End Date Deposition Reporter Relationship Specialty 09/03/13 Jeromy Silva, PCP - General [email or web address] [place] as of this encounter
--- OUTSIDE RECORDS SUMMARY | 2021-02-07 15:49 | XMS REPORT | Encounter Summary ---
Author Author [facility] Organization [facility] Address Unknown Phone Unavailable Care Team Providers Care Lodging Manager Name Role Phone Catherine Silva MD PCP Ira Colunga 8009 Unavailable Marielena TrujilloRAIL CAR DRIVER 7 Liz Layton MD 25 Reason for Referral * Radiology Services (Routine) Referred By Contact Referred To Contact Status Reason Specialty Diagnoses / [place] [address] [place] [address] Wp Mri [address] [place] [address] Authorized Radiology Diagnoses Liver mass P rocedures MRI ABD WO/W CONTRAST Electronically signed by Liz Layton MD at Reason for Visit * Reason Comments Follow Up Encounter Details Care Team Description Date [place] [address] [place] [address] [phone] Liver mass (Primary Dx); Other abnormal tumor markers ; Elevated carcinoembryonic antigen (CEA) 02/02/2021 Office Visit Oncology: [address] [place] [address] Social History Date Tobacco Use Types Packs/Day Years Used Quit: 1995 Former Smoker Cigarettes 0.5 Smokeless Tobacco: Never Used Comments Alcohol Use Standard Drinks/Week Not Currently 0 (1 standard drink = 0.6 o z pure alcohol) Sex Assigned at Date Recorded Female 01/07/2021 11:04 AM CDT Date Recorded COVID-19 Exposure Response 02/02/2021 7:47 AM CDT In the last month, have you been in contact with No / Unsure someone who was confirmed or suspected to have Coronavirus / COVID-19? documented as of this encounter Last Filed Vital Signs Reading Time Taken Comments Vital Sign 139/69 02/02/2021 8:40 AM CDT Blood Pressure 75 02/02/2021 8:40 AM CDT Pulse 36.7 C (98 F) 02/02/2021 8:40 AM CDT Temperature 16 02/02/2021 8:40 AM CDT Respiratory Rate 99% 02/02/2021 8:40 AM CDT Oxygen Saturation - - Inhaled Oxygen Concentration 89.2 kg (196 lb 9.6 oz) 02/02/2021 8:40 AM CDT Weight 165.1 cm (5' 5") 02/02/2021 8:40 AM CDT Height 32.72 02/02/2021 8:40 AM CDT Body Mass Index documented in this encounter Functional Status Date of Assessment Functional Status Response 02/02/2021 Does the patient have a hearing impairment: No 02/02/2021 Does the patient have a visual impairment: Yes 02/02/2021 Does the patient have impaired ambulation: Yes 02/02/2021 Does the patient have an activity of daily living No (ADL) impairment: 02/02/2021 Does the patient have an instrumental activity of No daily living (IADL) impairment: Date of Assessment Cognitive Status Response 02/02/2021 Does the patient have a cognitive impairment: No documented as of this encounter Patient Instructions * Patient Instructions* Miesha Turner RN - 02/02/2021 9:00 AM CDT Nurse: NELLY Mcmanus, RN Available Monday-Monday 8:00am - 4:00pm On-call number for urgent needs outside of business hours: [phone] Ask for the on-call Oncology fellow to be paged and they will call you back. Medication refills: please contact your pharmacy for medication refills, if they do not have any refills on file they will contact the office. Make sure they quevedo ve our correct contact information on file. P: [phone], F: [phone] Mass[employer] Messages: All [employer] technology messages are answered by the nurses, even if you s elect to send the message to Dr. Layton or Marielena Trujillo. Always select Dr. Layton when sending a message as that will route your message to me the fastest. Messages a re answered 8:00am-4:00pm Monday-Monday, holidays excluded. Phone Calls: We hardly ever sit at our desks where our phone is located as we ar e in clinic most days during the week. Please leave us a message as we check our messages several times per day. It is our goal to answer these messages as soon as possible. Messages are answered from 8:00am - 4:00 pm Monday-Monday, holida ys excluded. Please make sure you leave your full name with the spelling, date of , reason for your call, and return phone number when leaving a message. documented in this encounter Progress Notes * Liz Layton MD - 02/02/2021 9:00 AM CDT Images from the original note were not included. Name: Leigha Frias : 1935 AGE: 85 y.o. DATE OF SERVICE: 02/02/2021 Subjective: Reason for Visit: No chief complaint on file. Leigha Frias is a 85 y.o. female. Cancer Staging No matching staging information was found for the patient. History of Present Illness Patient presented to ER on 12/14/2020 with intermittent right upper quadrant pain for 2 months. She initially thought that she had adjusted her bra too tightly. Pain is worse after eating greasy meals. Last to 3 days she had having creased p ain after eating. She had no nausea, vomiting or diarrhea. She had a normal thiago l movement. Cell count and hemoglobin were normal. Her liver tests were normal. Alkaline phosphatase level was elevated 170. Lipase was 32. She received a dose of Tylenol. Patient was diagnosed with right upper quadrant pain likely due to c holelithiasis. Patient was dismissed to home. Ultrasound on 12/15/2020 showed: 1. The liver is normal in size, and the echo t exture is diffusely hyperechoic, consistent with hepatic steatosis ("fatty liver"), or other less li geovanna diffuse liver process. The patient does have risk factor(s) for fatty jefferson er. Fatty liver can cause right upper quadrant/epigastric pain. Liver chemistrie s may sometimes be normal with fatty liver. [...] cm, suspicious for malignancy. There is associated rotati on of the phrenic biliary ductal system in the adjacent portions of the right po sterior hepatic lobe and right caudate lobe. 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 2. Enlarging splenic cystic focus measuring 3.7 x 2.9 cm. MRI 01/01/2021 Here for further management plan for the image finding. In clinic, c/o general 'depressed' since 08/2020 when she lost her who wa s in the medical facility for 7-9 months. She is now living with her daughter an d in the mid of moving , which stresses her out as well. She is accompanied with her daughter in the clinic today. No F/C/N/V/D, chronic pain 4/10 RUQ under the bra line crossing the left side. L ost 10lbs since 08/2020; some mild to moderate fatigue. Interval History: More testing done including ERCP/EUS with brushing for assessment; All tests so far without evidence finding. RTC for follow up, overall no difference, still has some abd pain, no other hart ges issues; no F/C/N/V, wt stable, and good appetite Review of Systems Constitutional: Negative. HENT: Negative. Eyes: Negative. Respiratory: Negative. Cardiovascular: Negative. Gastrointestinal: Positive for abdominal pain. Negative for abdominal distention . See history Endocrine: Negative. Genitourinary: Negative. Musculoskeletal: Negative. Allergic/Immunologic: Negative. Neurological: Negative. Hematological: Negative. Psychiatric/Behavioral: The patient is nervous/anxious. PMH/PSH: Nothing specal Tick bit 2 years ago (?) Social/Family: Barraza, no Tobacco or ETOH history c/o general 'depressed' since 08/2020 when she lost her who was in the [facility] facility for 7-9 months. She is now living with her daughter and in the me d of moving , which stresses her out as well. No family history of cancer Objective: amLODIPine (NORVASC) 5 mg tablet Take 5 mg by mouth daily. aspirin EC 81 mg tablet Take 81 mg by mouth daily. Take with food. cyclobenzaprine (FLEXERIL) 10 mg tablet Take 10 mg by mouth at bedtime as ne eded for Muscle Cramps. docosahexaenoic acid/epa (FISH OIL PO) Take by mouth. levothyroxine (SYNTHROID) 75 mcg tablet Take 75 mcg by mouth daily 30 minute s before breakfast. losartan (COZAAR) 50 mg tablet Take 50 mg by mouth daily. Multivitamins with Fluoride (MULTI-VITAMIN PO) Take by mouth. There were no vitals filed for this visit. There is no height or weight on file to calculate BMI. Pain Addressed: Diagnostic test ordered Patient Evaluated for a Clinical Trial: No treatment clinical trial available fo r this patient. Eastern Cooperative Oncology Group performance status is 1, Restricted in physic ally strenuous activity but ambulatory and able to carry out work of a light or sedentary nature, e.g., light house work, office work. Physical Exam 12/14/2020: ER visit for right upper quadrant pain -Ultrasound suggested biliary colic. -Pt discharged home with directives to follow up with PCP 12/23/2020: CT Abdomen/Pelvis 01/01/2021: MRI Abdomen Results for LEIGHA FRIAS ( ) as of 02/02/2021 08:01 Ref. Range 01/21/2021 11:52 Hemoglobin Latest Ref Range: 12.0 - 15.0 GM/DL 14.0 Hematocrit Latest Ref Range: 36 - 45 % 41.2 Platelet Count Latest Ref Range: 150 - 400 K/UL 239 White Blood Cells Latest Ref Range: 4.5 - 11.0 K/UL 7.6 RBC Latest Ref Range: 4.0 - 5.0 M/UL 4.43 MCV Latest Ref Range: 80 - 100 FL 92.9 MCH Latest Ref Range: 26 - 34 PG 31.6 MCHC Latest Ref Range: 32.0 - 36.0 G/DL 34.0 MPV Latest Ref Range: 7 - 11 FL 8.4 RDW Latest Ref Range: 11 - 15 % 14.1 INR Latest Ref Range: 0.8 - 1.2 1.0 Sodium Latest Ref Range: 137 - 147 MMOL/L 140 Potassium Latest Ref Range: 3.5 - 5.1 MMOL/L 4.3 Chloride Latest Ref Range: 98 - 110 MMOL/L 105 CO2 Latest Ref Range: 21 - 30 MMOL/L 26 Anion Gap Latest Ref Range: 3 - 12 9 Blood Urea Nitrogen Latest Ref Range: 7 - 25 MG/DL 15 Creatinine Latest Ref Range: 0.4 - 1.00 MG/DL 0.81 eGFR Non Latest Ref Range: >60 mL/min >60 eGFR Latest Ref Range: >60 mL/min >60 Glucose Latest Ref Range: 70 - 100 MG/DL 93 Albumin Latest Ref Range: 3.5 - 5.0 G/DL 4.2 Calcium Latest Ref Range: 8.5 - 10.6 MG/DL 9.7 Total Bilirubin Latest Ref Range: 0.3 - 1.2 MG/DL 0.9 Total Protein Latest Ref Range: 6.0 - 8.0 G/DL 7.2 AST (SGOT) Latest Ref Range: 7 - 40 U/L 23 ALT (SGPT) Latest Ref Range: 7 - 56 U/L 24 Alk Phosphatase Latest Ref Range: 25 - 110 U/L 154 (H) Results for LEIGHA FRIAS ( ) as of 02/02/2021 08:01 Ref. Range 01/06/2021 11:06 CA 19-9 Latest Ref Range: <35 U/ml 419 (H) CEA Latest Ref Range: <3.0 NG/ML 1.7 Alpha Feto Protein Latest Ref Range: 0.0 - 15.0 NG/ML 3.5 01/21/2021 EUS Impression: - Linear duodenoscope was advanced to the second portion of the duodenum. The left lobe of the liver was visualized and ragini wed no intrahepatic masses or biliary duct al dilation. The celiac axis was visualized and appeared unremarkable. There were no celiac lymph nodes visualized. The left adrenal gland appeared normal. There is no abnormality wit hin the pancreatic parenchyma to suggest ch ronic pancreatitis, pancreatic mass, panc reas divisum. The PD measured 3.4 mm in the head and 1.3 mm in the body. Right lobe of t he liver was carefully inspected due to MRI find ings previously noted. No intrahepatic m asses were visualized on EUS. The CBD measured 5.9 mm and was without stones or sludge. - No specimens collected. Impression: Duodenoscope was advanced to the second p ortion of the duodenum. Limited views of t he esophagus, stomach, duodenum were o btained were unremarkable. The pylorus was paten t. The ampulla was seen in the second port ion of the duodenum and appeared small but unr emarkable. Cannulation of the CBD was performe d with DASH-25. Cholangiogram showed nydia l-appearing left and right hepatic ducts withou t evidence of stricture. The CBD was nondilate d and approximately 5 to 6 mm in diameter . 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 A 6 to 7 mm traction biliary sphincterotomy was performe d. Brushing was obtained of the distal CBD stri cture x2 and sent for FISH and cytology. At this time it was determined to go back in with an EU S scope to further evaluate the pancreatic hea d/uncinate given distal CBD stricture. Therefo re we did not place a VIABIL stent and instea d elected to place a 10 Icelandic/7 cm straight batsheva stic biliary stent into the CBD with good bile f low at the end of the procedure. Acquisition interpretation of fluor oscopic images of the CBD was performed dur ing this procedure. Cytology 01/21/2021: Final Diagnosis: A. Common Bile Duct Brushing: Negative for malignant cells. CEA and CA19-9 pending Assessment and Plan: 85 yr old female with chronic pain which is located RUQ abd; images suggest 'Vag ue low-attenuation focus identified within the posterior medial aspect of the ri ght hepatic lobe centered on image 24 measuring 2.4 x 2.4 cm, suspicious for mal ignancy. There is associated rotation of the phrenic biliary ductal system in th e adjacent portions of the right posterior hepatic lobe and right caudate lobe.' Normal function of liver and kidney More testing done including ERCP/EUS with brushing for assessment; All tests so far without evidence finding. RTC for follow up, overall no difference, still has some abd pain, no other hart ges issues; no F/C/N/V, wt stable, and good appetite Explained to the pt and friend about the tests done so far-- no obvious evidence of malignancy -- either no maligancies or not found yet.-- needs further follow up with assessment. -- MRI in 6 weeks as follow up and assessment -- repeat labs including tumor markers -- supportive care and symptomatic management The patient and family had a chance to ask questions, all been answered to their statisfaction. Liz Layton MD, FACP Addendum: CA19-9 today showed increasing to 574. Will change the follow up with images in 4 weeks. documented in this encounter Plan of Treatment Order Schedule Name Type Priority Associated Diag noses Expected: 03/16/2021 (Approximate), Expi res: 02/02/2022 MRI ABD WO/W CONTRAST Imaging Routine Liver ma ss Expected: 05/04/2021 (Approximate), Expi res: 02/02/2022 COMPREHENSIVE METABOLIC Lab Routine Liver mass PANEL Expected: 03/16/2021 (Approximate), Expi res: 02/02/2022 CBC AND DIFF Lab Routine Liver mass Expected: 03/16/2021 (Approximate), Expi res: 02/02/2022 CA19.9 Lab Routine Liver mass Other abnormal tumor markers Expected: 03/16/2021 (Approximate), Expi res: 02/02/2022 CEA(CARCINOEMBRYONIC AG) Lab Routine Liver mass Elevated carcinoembryonic antigen (CEA) documented as of this encounter Visit Diagnoses Diagnosis Liver mass - Primary Unspecified disorder of liver Other abnormal tumor markers Other abnormal tumor markers Elevated carcinoembryonic antigen (CEA) Elevated carcinoembryonic antigen [CEA] documented in this encounter Additional Health Concerns Assessment Noted Time A fall risk assessment has been completed for the pat ient 02/02/2021 8:42 AM CDT PHQ-2 Depression Total Score: 2 01/06/2021 9:59 AM CDT documented as of this encounter
--- OUTSIDE RECORDS SUMMARY | 2021-02-07 15:49 | XMS REPORT | Encounter Summary ---
Author Author [facility] Organization [facility] Address Unknown Phone Unavailable Care Team Providers Care Curtain Hemmer Automatic Name Role Phone Catherine Silva MD PCP Reason for Visit * Reason Onset Date Comments Appointment 01/25/2021 Encounter Details Care Team Description Date Type Department Liz Layton MD [address] [place] [address] [phone] Appointment 01/25/2021 Telephone Oncology: [address] [place] [address] Social History Date Tobacco Use Types Packs/Day Years Used Quit: 1995 Former Smoker Cigarettes 0.5 Smokeless Tobacco: Never Used Comments Alcohol Use Standard Drinks/Week Not Currently 0 (1 standard drink = 0.6 o z pure alcohol) Sex Assigned at Date Recorded Female 01/07/2021 11:04 AM CDT Date Recorded COVID-19 Exposure Response 01/21/2021 11:22 AM CDT In the last month, have you been in contact with No / Unsure someone who was confirmed or suspected to have Coronavirus / COVID-19? documented as of this encounter Miscellaneous Notes * Telephone Encounter - Evelyn Saleh RN - 01/25/2021 10:52 AM CDT Left message confirming patient's appointment tomorrow with Dr. Layton. Verbalized date/time of appointments, verbalized appointment is to follow up on procedures and biopsy. Left office telephone number to return with additional questions or concerns. documented in this encounter Plan of Treatment Not on filedocumented as of this encounter Visit Diagnoses Not on filedocumented in this encounter Additional Health Concerns Assessment Noted Time A fall risk assessment has been completed for the pat ient 01/21/2021 12:55 PM CDT PHQ-2 Depression Total Score: 2 01/06/2021 9:59 AM CDT documented as of this encounter
--- OUTSIDE RECORDS SUMMARY | 2021-02-07 15:49 | XMS REPORT | Encounter Summary ---
Author Author [facility] Organization [facility] Address Unknown Phone Unavailable Care Team Providers Care Machinist Bench Name Role Phone No Pcp, Na PCP Unavailable Encounter Details Care Team Description Date Type Department Liz Layton MD [address] [place] [address] [phone] Liver mass (Primary Dx); Other abnormal tumor markers 01/06/2021 Orders Only Oncology: [address] [place] [address] Social History Date Tobacco Use Types Packs/Day Years Used Quit: 1995 Former Smoker Cigarettes 0.5 Smokeless Tobacco: Never Used Comments Alcohol Use Standard Drinks/Week Not Currently 0 (1 standard drink = 0.6 o z pure alcohol) Sex Assigned at Date Recorded Female 01/07/2021 11:04 AM CDT Date Recorded COVID-19 Exposure Response 01/06/2021 9:40 AM CDT In the last month, have you been in contact with No / Unsure someone who was confirmed or suspected to have Coronavirus / COVID-19? documented as of this encounter Plan of Treatment Not on filedocumented as of this encounter Visit Diagnoses Diagnosis Liver mass - Primary Unspecified disorder of liver Other abnormal tumor markers Other abnormal tumor markers documented in this encounter Additional Health Concerns Assessment Noted Time PHQ-2 Depression Total Score: 2 01/06/2021 9:59 AM CDT documented as of this encounter
--- OUTSIDE RECORDS SUMMARY | 2021-02-07 15:49 | XMS REPORT | Encounter Summary ---
Author Author [facility] Organization [facility] Address Unknown Phone Unavailable Care Team Providers Care Basketballs And Footballs Reverser Name Role Phone Catherine Silva MD PCP Encounter Details Care Team Description Date Type Department Eugene Pedraza MD [address] [facility] [address] [place] [address] 01/21/2021 Hospital Imaging: Angel rivas, [facility]ian [facility] [address] [facility] [address] [place] [address] Social History Date Tobacco Use Types Packs/Day [...] / COVID-19? documented as of this encounter Medications at Time of Discharge Start Date End Date Medication Sig Dispensed Refills amLODIPine (NORVASC) 5 mg Take 5 mg by 0 tablet mouth daily. aspirin EC 81 mg tablet Take 81 mg by 0 mouth daily. Take with food. cyclobenzaprine Take 10 mg by 0 (FLEXERIL) 10 mg tablet mouth at bedtime as needed for Muscle Cramps. docosahexaenoic acid/epa Take by 0 (FISH OIL PO) mouth. levothyroxine (SYNTHROID) Take 75 mcg 0 75 mcg tablet by mouth daily 30 minutes before breakfast. losartan (COZAAR) 50 mg Take 50 mg by 0 tablet mouth daily. Multivitamins with Take by 0 Fluoride (MULTI-VITAMIN mouth. PO) documented as of this encounter Discharge Disposition Code Departure Means Destination Disposition Home Home or Self Care documented in this encounter Plan of Treatment Not on filedocumented as of this encounter Procedures Comments Procedure Name Priority Date/Time Associated Diag nosis GI ENDO CATH ETHEL & PANC Routine 01/21/2021 DUCT 3:20 PM CDT documented in this encounter Results * GI ENDO CATH ETHEL & PANC DUCT (01/21/2021 3:20 PM CDT) Specimen Narrative Performed At This order has been auto finalized and does not conta in a result. [facility] Performing Organization Address City/State/ZIP Code P jacinta Number [facility] documented in this encounter Visit Diagnoses Not on filedocumented in this encounter Additional Health Concerns Assessment Noted Time A fall risk assessment has been completed for the pat ient 01/21/2021 12:55 PM CDT PHQ-2 Depression Total Score: 2 01/06/2021 9:59 AM CDT documented as of this encounter
--- OUTSIDE RECORDS SUMMARY | 2021-02-07 15:49 | XMS REPORT | Encounter Summary ---
Author Author [facility] Organization [facility] Address Unknown Phone Unavailable Care Team Providers Care Search Engine Optimization Consultant Name Role Phone Catherine Silva MD PCP Ira Colunga 1439 Unavailable Marielena TrujilloHOMICIDE DETECTIVE 7 Liz Layton MD 25 Encounter Details Care Team Description Date Type Department Eugene Pedraza MD [address] [facility] [address] [place] [address] Encounter for pancreatic duct stent exch mateus (Primary Dx); Encounter for screening laboratory testing for COVID-19 virus in asymptomatic patient; Disease of biliary tract, unspecified 01/27/2021 Prep for Case Endoscopy: [facility] [address] [facility] [address] [place] [address] Social History Date Tobacco Use [...] as of this encounter Plan of Treatment Order Schedule Name Type Priority Associated Diag noses Expected: 01/27/2021 (Approximate), Expi res: 01/27/2022 COVID-19 (SARS-COV-2) PCR Microbiology Routine Enco unter for screening laboratory testing for COVID-19 virus in asymptomatic patient Expected: 01/27/2021, Expires: CBC Lab Routine Encounter for p ancreatic duct stent exchange Encounter for screening laboratory testing for COVID-19 virus in asymptomatic patient Expected: 01/27/2021 (Approximate), Expi res: 01/27/2022 COMPREHENSIVE METABOLIC Lab Routine Encoun ter for pancreatic PANEL duct stent exchange Encounter for screening laboratory testing for COVID-19 virus in asymptomatic patient Expected: 01/27/2021 (Approximate), Expi res: 01/27/2022 PROTIME INR (PT) Lab Routine Disease of bi liary tract, unspecified Encounter for pancreatic duct stent exchange Encounter for screening laboratory testing for COVID-19 virus in asymptomatic patient documented as of this encounter Visit Diagnoses Diagnosis Encounter for pancreatic duct stent exc hange - Primary Fitting and adjustment of other gastroi ntestinal appliance and device Encounter for screening laboratory test ing for COVID-19 virus in asymptomatic patient Disease of biliary tract, unspecified documented in this encounter Orders First Ordered Date Case Request Count Last Ordered Date CASE REQUEST GI ENDOSCOPY 1 01/27/2021 documented in this encounter Additional Health Concerns Assessment Noted Time A fall risk assessment has been completed for the pat ient 01/21/2021 12:55 PM CDT PHQ-2 Depression Total Score: 2 01/06/2021 9:59 AM CDT documented as of this encounter
--- OUTSIDE RECORDS SUMMARY | 2021-02-07 15:49 | XMS REPORT | Encounter Summary ---
Author Author [facility] Organization [facility] Address Unknown Phone Unavailable Care Team Providers Care Agricultural Produce Packer Name Role Phone Catherine Silva MD PCP Reason for Visit * Auth/Cert Referred By Contact Referred To Contact Status Reason Specialty Diagnoses / Procedures Diagnoses Liver mass Liver mass [R16.0] P rocedures OR EGD INTRMURAL US NEEDLE ASPIRATE/BIOPSY ESOPHAGS OR ERCP DX COLLECTION SPECIMEN BRUSHING/WASHING ESOPHAGOGASTRODUOD ENOSCOPY WITH TRANSENDOSCOPIC ULTRASOUND GUIDED FINE NEEDLE ASPIRATION/ BIOPSY ENDOSCOPIC RETROGRADE CHOLANGIOPANCREATO GRAPHY Encounter Details Care Team Description Date Type Department Dudley Hampton MD [address] [address] [place], [place] [id number] 01/21/2021 Anesthesia Endoscopy: Main Cam pus, Event [facility] 4000 [facility] [address], [address] [place] [address] Anesthesia Record Responsible Anesthesiologist Anesthesia Start Time Anesthesi a Stop Time Procedure Name Dudley Hampton MD 01/21/21 1339 01/21/21 1504 ENDOSCOPIC RETROGRADE CHOLANGIOPANCREATOGRAPHY (N/A ) Date Time Event Comment 1324 1339 AN Equip Check 1339 Anes Start 1339 An Start Data 1340 In Room 1341 An Induction The patient was ree valuated immediately before moderate or deep sedation use and before anesthesia induction. 1342 An Intubation 1348 Anesthesia Ready 1351 Proc Start 1501 An Extubation 1501 an stop data 1504 Handoff to RN I completed my SBAR handoff to the receiving nurse. 1504 An Stop Meds Name Total fentaNYL PF (SUBLIMAZE) injection 100 mcg lidocaine PF 2% 100mg/5mL vial 50 mg propofol (DIPRIVAN) 200 mg/ 20 mL 90 mg injection (VIAL) succinylcholine (ANECTINE) injection 120 mg (VIAL) ondansetron (ZOFRAN) injection 4 mg phenylephrine (JESSICA-SYNEPHRINE) 0.1 mg/mL 100 mcg injection syr * Name O2 N2O Inspired N2O Sevoflurane Inspired Sevoflurane * No blood administrations on file. Removal Type Details Placement Peripheral 01/21/21; 1258; RN; R; Forearm; 20 G 0 01/21/21 1258 by KAILEY De Oliveira RN 01/21/21 1501 by Peyman Bruce CRNA ETT 01/21/21; 1342; Mask ventilation not 0 01/21/21 1342 by Teo, attempted (0); Direct laryngoscopy; Peyman Davis CRNA Single-Lumen; ETT Size: 6.5mm; Mac; Blade Size: 3; Oral; 2b-Arytenoids or posterior part of the vocal cords only just visible; 1 insertion attempt; Auscultation, ETCO2 Detector; Vol of r in Cuff: 6 mL; Taped at Gums: 22 centimeters; 01/21/21; 1501 documented in this encounter Social History Date Tobacco Use Types Packs/Day [...] / COVID-19? documented as of this encounter OR Notes * Anesthesia Postprocedure Evaluation - Dudley Hampton MD - 01/21/2021 3:51 PM CDT Post-Anesthesia Evaluation Name: Pearl Frias : 1935 Age: 85 y.o. Sex: female Procedure Information Anesthesia Start Date/Time: 01/21/21 1339 Procedures: ENDOSCOPIC RETROGRADE CHOLANGIOPANCREATOGRAPHY (N/A ) ESOPHAGOSCOPY WITH ENDOSCOPIC ULTRASOUND EXAMINATION - FLEXIBLE (N/A ) ENDOSCOPIC RETROGRADE CHOLANGIOPANCREATOGRAPHY WITH SPHINCTEROTOMY/ PAPILLOT CLAIR (N/A ) ENDOSCOPIC RETROGRADE CHOLANGIOPANCREATOGRAPHY WITH PLACEMENT ENDOSCOPIC KINDRA NT INTO BILIARY/ PANCREATIC DUCT - EACH STENT (N/A ) Location: ENDO 2 / ENDO/GI Surgeons: Eugene Pedraza MD Post-Anesthesia Vitals BP: 126/63 (01/21 1535) Temp: 37.1 C (98.7 F) (01/21 1501) Pulse: 73 (01/21 1535) Respirations: 13 PER MINUTE (01/21 1535) SpO2: 93 % (01/21 1535) SpO2 Pulse: 71 (01/21 1535) Vitals Value Taken Time BP 126/63 01/21/21 1535 Temp Pulse 73 01/21/21 1535 Respirations 13 PER MINUTE 01/21/21 1535 SpO2 93 % 01/21/21 1535 Post Anesthesia Evaluation Note Evaluation location: Pre/Post Patient participation: recovered; patient participated in evaluation Level of consciousness: alert Pain management: adequate Hydration: normovolemia Temperature: 36.0C - 38.4C Airway patency: adequate Perioperative Events Postoperative Status Cardiovascular status: hemodynamically stable Perioperative Events Perioperative Event: No Emergency Case Activation: No * Anesthesia Preprocedure Evaluation - Dudley Hampton MD - 01/21/2021 1:24 PM CDT Anesthesia Pre-Procedure Evaluation Name: Pearl Frias : 1935 Age: 85 y.o. Sex: female Procedure Info: Procedure Information Date/Time: 01/21/21 1330 Procedures: ESOPHAGOGASTRODUODENOSCOPY WITH TRANSENDOSCOPIC ULTRASOUND GUIDED FINE NEEDL E ASPIRATION/ BIOPSY (N/A ) ENDOSCOPIC RETROGRADE CHOLANGIOPANCREATOGRAPHY (N/A ) Location: ENDO 2 / ENDO/GI Surgeons: Eugene Pedraza MD Physical Assessment Vital Signs (last filed in past 24 hours): BP: 133/77 (01/21 1248) Temp: 36.6 C (97.9 F) (01/21 1248) Pulse: 72 (01/21 1248) Respirations: 23 PER MINUTE (01/21 124) SpO2: 96 % (01/21 124) Patient History No Known Allergies Current Medications Medication Directions amLODIPine (NORVASC) 5 mg tablet Take 5 mg by mouth daily. aspirin EC 81 mg tablet Take 81 mg by mouth daily. Take with food. cyclobenzaprine (FLEXERIL) 10 mg tablet Take 10 mg by mouth at bedtime as needed for Muscle Cramps. docosahexaenoic acid/epa (FISH OIL PO) Take by mouth. levothyroxine (SYNTHROID) 75 mcg tablet Take 75 mcg by mouth daily 30 minutes be fore breakfast. losartan (COZAAR) 50 mg tablet Take 50 mg by mouth daily. Multivitamins with Fluoride (MULTI-VITAMIN PO) Take by mouth. Review of Systems/Medical History Patient summary reviewed Pertinent labs reviewed PONV Screening: Female gender and Non-smoker No history of anesthetic complications No family history of anesthetic complications Airway - negative Pulmonary - negative Cardiovascular Hypertension, well controlled ECHO in 2011 unremarkable. GI/Hepatic/Renal Liver disease (right hepatic lobe mass) Neuro/Psych - negative Musculoskeletal Back pain Endocrine/Other Hypothyroidism Constitution - negative Patient lost her of 40 years in August 2020 and is nervous about havi ng GETA. Physical Exam Airway Findings Mallampati: III TM distance: >3 FB Neck ROM: full Mouth opening: good Airway patency: adequate Dental Findings: Negative Increased risk for dental injury; pt advised and poor dentition Cardiovascular Findings: Rhythm: regular Rate: normal Pulmonary Findings: Breath sounds clear to auscultation. Abdominal Findings: Abdominal exam deferred Neurological Findings: Alert and oriented x 3 Constitutional findings: No acute distress Diagnostic Tests Hematology: Lab Results Component Value Date HGB 14.0 01/21/2021 HCT 41.2 01/21/2021 PLTCT 239 01/21/2021 WBC 7.6 01/21/2021 NEUT 62 01/06/2021 ANC 4.70 01/06/2021 ALC 2.00 01/06/2021 BRIAN 6 01/06/2021 AMC 0.40 01/06/2021 EOSA 3 01/06/2021 ABC 0.10 01/06/2021 MCV 92.9 01/21/2021 MCH 31.6 01/21/2021 MCHC 34.0 01/21/2021 MPV 8.4 01/21/2021 RDW 14.1 01/21/2021 General Chemistry: Lab Results Component Value Date NA 140 01/21/2021 K 4.3 01/21/2021 CL 105 01/21/2021 CO2 26 01/21/2021 GAP 9 01/21/2021 BUN 15 01/21/2021 CR 0.81 01/21/2021 GLU 93 01/21/2021 GLU 94 11/22/2004 CA 9.7 01/21/2021 ALBUMIN 4.2 01/21/2021 MG 2.2 11/22/2004 TOTBILI 0.9 01/21/2021 PO4 3.7 11/22/2004 Coagulation: Lab Results Component Value Date PT 12.1 11/22/2004 PTT 70.4 11/22/2004 PTT CHECKED 11/22/2004 INR 1.0 01/21/2021 Anesthesia Plan ASA score: 3 Plan: general Induction method: intravenous NPO status: acceptable Informed Consent Anesthetic plan and risks discussed with patient. Use of blood products discussed with patient Blood Consent: consented Plan discussed with: anesthesiologist. * Anesthesia Preprocedure Evaluation - Mikki Marrero CRNA - 01/21/2021 12:48 PM CDT Anesthesia Pre-Procedure Evaluation Name: Pearl Frias : 1935 Age: 85 y.o. Sex: female Procedure Info: Procedure Information Date/Time: 01/21/21 1330 Procedures: ESOPHAGOGASTRODUODENOSCOPY WITH TRANSENDOSCOPIC ULTRASOUND GUIDED FINE NEEDL E ASPIRATION/ BIOPSY (N/A ) ENDOSCOPIC RETROGRADE CHOLANGIOPANCREATOGRAPHY (N/A ) Location: ENDO 2 / ENDO/GI Surgeons: Eugene Pedraza MD Physical Assessment Vital Signs (last filed in past 24 hours): BP: 133/77 (01/21 1248) Temp: 36.6 C (97.9 F) (01/21 1248) Pulse: 72 (01/21 1248) Respirations: 23 PER MINUTE (01/21 1248) SpO2: 96 % (01/21 1248) Patient History No Known Allergies Current Medications Medication Directions amLODIPine (NORVASC) 5 mg tablet Take 5 mg by mouth daily. aspirin EC 81 mg tablet Take 81 mg by mouth daily. Take with food. cyclobenzaprine (FLEXERIL) 10 mg tablet Take 10 mg by mouth at bedtime as needed for Muscle Cramps. docosahexaenoic acid/epa (FISH OIL PO) Take by mouth. levothyroxine (SYNTHROID) 75 mcg tablet Take 75 mcg by mouth daily 30 minutes be fore breakfast. losartan (COZAAR) 50 mg tablet Take 50 mg by mouth daily. Multivitamins with Fluoride (MULTI-VITAMIN PO) Take by mouth. Review of Systems/Medical History Patient summary reviewed Pertinent labs reviewed PONV Screening: Female gender and Non-smoker No history of anesthetic complications No family history of anesthetic complications Airway - negative Pulmonary - negative Cardiovascular Hypertension, well controlled ECHO in 2011 unremarkable. GI/Hepatic/Renal Liver disease (right hepatic lobe mass) Neuro/Psych - negative Musculoskeletal Back pain Endocrine/Other Hypothyroidism Constitution - negative Patient lost her of 40 years in August 2020 and is nervous about havi ng GETA. Physical Exam Airway Findings Mallampati: III TM distance: >3 FB Neck ROM: full Mouth opening: good Airway patency: adequate Dental Findings: Negative Cardiovascular Findings: Rhythm: regular Rate: normal Pulmonary Findings: Breath sounds clear to auscultation. Abdominal Findings: Abdominal exam deferred Neurological Findings: Alert and oriented x 3 Constitutional findings: No acute distress Diagnostic Tests Hematology: Lab Results Component Value Date HGB 14.0 01/21/2021 HCT 41.2 01/21/2021 PLTCT 239 01/21/2021 WBC 7.6 01/21/2021 NEUT 62 01/06/2021 ANC 4.70 01/06/2021 ALC 2.00 01/06/2021 BRIAN 6 01/06/2021 AMC 0.40 01/06/2021 EOSA 3 01/06/2021 ABC 0.10 01/06/2021 MCV 92.9 01/21/2021 MCH 31.6 01/21/2021 MCHC 34.0 01/21/2021 MPV 8.4 01/21/2021 RDW 14.1 01/21/2021 General Chemistry: Lab Results Component Value Date NA 137 01/06/2021 K 4.2 01/06/2021 CL 104 01/06/2021 CO2 25 01/06/2021 GAP 8 01/06/2021 BUN 16 01/06/2021 CR 0.76 01/06/2021 GLU 90 01/06/2021 GLU 94 11/22/2004 CA 9.5 01/06/2021 ALBUMIN 4.2 01/06/2021 MG 2.2 11/22/2004 TOTBILI 0.7 01/06/2021 PO4 3.7 11/22/2004 Coagulation: Lab Results Component Value Date PT 12.1 11/22/2004 PTT 70.4 11/22/2004 PTT CHECKED 11/22/2004 INR 1.0 01/21/2021 Anesthesia Plan ASA score: 3 Plan: general Induction method: intravenous NPO status: acceptable Informed Consent Anesthetic plan and risks discussed with patient. Use of blood products discussed with patient Blood Consent: consented Plan discussed with: anesthesiologist. documented in this encounter Plan of Treatment Not on filedocumented as of this encounter Visit Diagnoses Not on filedocumented in this encounter Administered Medications Action Date Dose Rate Site Medication Order MAR Action 01/21/2021 1:39 PM CDT 100 mcg fentaNYL citrate PF (SUBLIMAZE) Given injection Intravenous, INTRA-PROCEDURE MED, Starting on [place] 01/21/21 at 1339, Until [place] 01/21/21 at 1504, Anesthesia Intra-o p 01/21/2021 1:41 PM CDT 50 mg lidocaine PF 20 mg/mL (2 %) injection Given Intravenous, INTRA-PROCEDURE MED, Starting on [place] 01/21/21 at 1341, Until [place] 01/21/21 at 1504, Anesthesia Intra-o p 01/21/2021 1:49 PM CDT 4 mg ondansetron (ZOFRAN) injection Given Intravenous, INTRA-PROCEDURE MED, Starting on [place] 01/21/21 at 1349, Until [place] 01/21/21 at 1504, Anesthesia Intra-o p 01/21/2021 2:44 PM CDT 100 mcg phenylephrine (JESSICA-SYNEPHRINE) injection Given syringe Intravenous, INTRA-PROCEDURE MED, Starting on [place] 01/21/21 at 1444, Until [place] 01/21/21 at 1504, Anesthesia Intra-o p 01/21/2021 1:41 PM CDT 90 mg propofol (DIPRIVAN) injection Given Intravenous, INTRA-PROCEDURE MED, Starting on [place] 01/21/21 at 1341, Until [place] 01/21/21 at 1504, Anesthesia Intra-o p 01/21/2021 1:41 PM CDT 120 mg succinylcholine (ANECTINE) injection Given Intravenous, INTRA-PROCEDURE MED, Starting on [place] 01/21/21 at 1341, Until [place] 01/21/21 at 1504, Anesthesia Intra-o p documented in this encounter Additional Health Concerns Assessment Noted Time A fall risk assessment has been completed for the pat ient 01/21/2021 12:55 PM CDT PHQ-2 Depression Total Score: 2 01/06/2021 9:59 AM CDT documented as of this encounter
--- OUTSIDE RECORDS SUMMARY | 2021-02-07 15:49 | XMS REPORT | Encounter Summary ---
Author Author [facility] Organization [facility] Address Unknown Phone Unavailable Care Team Providers Care Precision Structural Metal Fitter Name Role Phone Catherine Silva MD PCP Reason for Visit * Reason Onset Date Comments Appointment 01/25/2021 Encounter Details Care Team Description Date Type Department Liz Layton MD [address] [place] [address] [phone] Appointment 01/25/2021 Telephone Oncology: [address] [place] [address] Social History Date Tobacco Use Types Packs/Day [...]
--- OUTSIDE RECORDS SUMMARY | 2021-02-07 15:49 | XMS REPORT | Encounter Summary ---
Author Author [facility] Organization [facility] Address Unknown Phone Unavailable Care Team Providers Care Junior Software Developer Name Role Phone Catherine Silva MD PCP Encounter Details Care Team Description Date Type Department Liz Layton MD [address] [place] [address] [phone] Liver mass (Primary Dx); Other abnormal tumor markers 01/27/2021 Orders Only Oncology: [address] [place], [place] [phone] Social History Date Tobacco Use Types Packs/Day [...] filedocumented as of this encounter Results * CEA(CARCINOEMBRYONIC AG) (02/02/2021 8:12 AM CDT) CEA 1.5 <3.0 NG/ML [facility] Specimen Blood Performing Organization Address City/State/ZIP Code P jacinta Number [facility] [address] [place] [address] * CA19.9 (02/02/2021 8:12 AM CDT) CA [phone] (H) <35 U/ml [facility] Specimen Blood Performing Organization Address City/State/ZIP Code P jacinta Number [facility] [address] [place] [address] * ALPHA FETO PROTEIN (AFP) (02/02/2021 8:12 AM CDT) Alpha Feto 3.0 0.0 - 15.0 NG/ML [facility] Protein Specimen Blood Performing Organization Address City/[facility]/ZIP Code P jacinta Number [facility] [address] [place] [phone] * COMPREHENSIVE METABOLIC PANEL (02/02/2021 8:12 AM CDT) Sodium 138 137 - 147 MMOL/L [facility] Potassium 4.0 3.5 - 5.1 MMOL/L [facility] Chloride 105 98 - 110 MMOL/L [facility] Glucose 101 (H) 70 - 100 MG/DL [facility] Blood Urea 16 7 - 25 MG/DL [facility] Nitrogen Creatinine 0.86 0.4 - 1.00 MG/DL [facility] Calcium 9.5 8.5 - 10.6 MG/DL [facility] Total Protein 7.0 6.0 - 8.0 G/DL [facility] Total Bilirubin 0.6 0.3 - 1.2 MG/DL [facility] Albumin 4.1 3.5 - 5.0 G/DL [facility] Alk Phosphatase 166 (H) 25 - 110 U/L [facility] AST (SGOT) 25 7 - 40 U/L [facility] CO2 26 21 - 30 MMOL/L [facility] ALT (SGPT) 30 7 - 56 U/L [facility] Anion Gap 7 3 - 12 [facility] eGFR Non >60 >60 mL/min [facility] Comment: Citizen Of [place] The eGFR is not validated f or use in drug dosing adjustments. Continue to use estimated creatinine clearance per dosing reference text. Please contact the Clinical Pharmacist for questions. eGFR >60 >60 mL/min [facility] Citizen [place] Comment: The eGFR is not validated for use in drug dosing adjustments. Continue to use estimated creatinine clearance per dosing reference text. Please contact the Clinical Pharmacist for questions. Specimen Blood Performing Organization Address City/State/ZIP Code P jacinta Number [facility] [address] [place] [address] * CBC AND DIFF (02/02/2021 8:12 AM CDT) White Blood 7.3 4.5 - 11.0 K/UL [facility] Cells RBC 4.28 4.0 - 5.0 M/UL [facility] Hemoglobin 13.7 12.0 - 15.0 GM/DL [facility] Hematocrit 40.2 36 - 45 % [facility] MCV 93.9 80 - 100 FL [facility] MCH 31.9 26 - 34 PG [facility] MCHC 34.0 32.0 - 36.0 G/DL [facility] RDW 13.9 11 - 15 % [facility] Platelet Count 236 150 - 400 K/UL [facility] MPV 8.5 7 - 11 FL [facility] Neutrophils 60 41 - 77 % [facility] Lymphocytes 29 24 - 44 % [facility] Monocytes 5 4 - 12 % [facility] Eosinophils 4 0 - 5 % [facility] Basophils 2 0 - 2 % [facility] Absolute 4.40 1.8 - 7.0 K/UL [facility] Neutrophil Count Absolute Lymph 2.10 1.0 - 4.8 K/UL [facility] Count Absolute 0.40 0 - 0.80 K/UL [facility] Monocyte Count Absolute 0.30 0 - 0.45 K/UL [facility] Eosinophil Count Absolute 0.10 0 - 0.20 K/UL [facility] Basophil Count Specimen Blood Performing Organization Address City/State/ZIP Code P jacinta Number [facility] [address] [place] [address] documented in this encounter Visit Diagnoses Diagnosis [...]
--- OUTSIDE RECORDS SUMMARY | 2021-02-07 15:49 | XMS REPORT | Encounter Summary ---
Author Author [facility] Organization [facility] Address Unknown Phone Unavailable Care Team Providers Care Carcass Splitter Name Role Phone Catherine Silva MD PCP Reason for Visit * Reason Onset Date Comments Appointment 01/25/2021 Encounter Details Care Team Description Date Type Department Liz Layton MD [address] [place] [address] [phone] Appointment 01/25/2021 Telephone Oncology: [address] [place] [address] Social History Date Tobacco Use Types Packs/Day [...] encounter Miscellaneous Notes * Telephone Encounter - Miesha Turner RN - 01/25/2021 2:07 PM CDT Pearl called requesting we move her appointment with Dr. Layton as she does not have a ride to clinic tomorrow. Her pathology is also still pending from her [facility] biopsy. Appointments moved to next Monday. documented in this encounter Plan of Treatment [...]
--- OUTSIDE RECORDS SUMMARY | 2021-02-07 15:49 | XMS REPORT | Encounter Summary ---
Author Author [facility] Organization [facility] Address Unknown Phone Unavailable Care Team Providers Care Supervisor Metal Furniture Fabrication Name Role Phone Catherine Silva MD PCP Reason for Visit * Reason Onset Date Comments Appointment 01/25/2021 Encounter Details Care Team Description Date Type Department Liz Layton MD [address] [place] [address] [phone] Appointment 01/25/2021 Telephone Oncology: [address] [place] [address] Social History Date Tobacco Use Types Packs/Day [...]
--- OUTSIDE RECORDS SUMMARY | 2021-02-07 15:49 | XMS REPORT | Encounter Summary ---
Author Author [facility] Organization [facility] Address Unknown Phone Unavailable Care Team Providers Care Event Marketing Manager Name Role Phone Catherine Silva MD PCP Encounter Details Care Team Description Date Type Department 01/21/2021 Travel Social History Date Tobacco Use Types Packs/Day [...]
--- OUTSIDE RECORDS SUMMARY | 2021-02-07 15:49 | XMS REPORT | Encounter Summary ---
Author Author [facility] Organization [facility] Address Unknown Phone Unavailable Care Team Providers Care Die Maker Name Role Phone Catherine Silva MD PCP Reason for Visit * Auth/Cert Referred By Contact Referred To Contact Status Reason Specialty Diagnoses / Procedures Diagnoses Liver mass Liver mass [R16.0] P rocedures [place] EGD INTRMURAL US NEEDLE ASPIRATE/BIOPSY ESOPHAGS [place] ERCP DX COLLECTION SPECIMEN BRUSHING/WASHING ESOPHAGOGASTRODUOD ENOSCOPY WITH TRANSENDOSCOPIC ULTRASOUND GUIDED FINE NEEDLE ASPIRATION/ BIOPSY ENDOSCOPIC RETROGRADE CHOLANGIOPANCREATO GRAPHY Encounter Details Care Team Description Date Type Department Eugene Pedraza MD [address] [facility] [id number] [place] [address] ENDOSCOPIC RETROGRADE CHOLANGIOPANCREATO GRAPHY 01/21/2021 Surgery Endoscopy: [facility] [address] [facility], [address] [place] [address] Surgery Details Trauma Case? Date/Time Status Location OR Service Patient Class Case Class Case Type 01/21/21 Posted [facility] - 1:30 PM rology Surgery Life or limb threatenin g if interventi on does not occur within 8 hrs or IP LOS will be prolonged Panel 1 Procedure LRB Anes Op Region Wound Class Com ments ENDOSCOPIC RETROGRADE N/A Defer to NA CHOLANGIOPANCREATOGRAPHY Anesthesia ESOPHAGOSCOPY WITH N/A Defer to NA ENDOSCOPIC ULTRASOUND Anesthesia EXAMINATION - FLEXIBLE ENDOSCOPIC RETROGRADE N/A Defer to NA CHOLANGIOPANCREATOGRAPHY Anesthesia WITH SPHINCTEROTOMY/ PAPILLOTOMY ENDOSCOPIC RETROGRADE N/A Defer to NA CHOLANGIOPANCREATOGRAPHY Anesthesia WITH PLACEMENT ENDOSCOPIC STENT INTO BILIARY/ PANCREATIC DUCT - EACH STENT Panel Surgeon Surgeon Role Service 1 Edmund Reynolds MD Fellow Gastroenterolog y 1 Dez Cunningham DO Fellow Gastroenterology 1 Eugene Pedraza MD Primary Gastroenterology Special Needs 4 day reminder call/spoke w/pt and pt is not wanting to do Covid swab due to being vaccinated and currently in the middle of a move;wants to proceed without Covid swab if possible; notified SS - [facility] Call: 01/07/2021 @ 1043 Called to prescreen for end oscopy - spoke to patient. SS Social History Date Tobacco Use Types Packs/Day [...] Signs Reading Time Taken Comments Vital Sign 133/77 01/21/2021 12:48 PM CDT Blood Pressure 72 01/21/2021 12:48 PM CDT Pulse 36.6 C (97.9 F) 01/21/2021 12:48 PM CDT Temperature - - Respiratory Rate 96% 01/21/2021 12:48 PM CDT Oxygen Saturation - - Inhaled Oxygen Concentration - - Weight - - Height - - Body Mass Index documented in this encounter Discharge Instructions * Discharge Instr - Education* Kelly De Oliveira, RAÚL - 01/21/2021 12:59 PM CDT EGD/Upper EUS/ERCP/Antegrade Enteroscopy Post Upper Endoscopy Instructions -You may have a sore throat after the procedure for 2-3 days. Try sucrets or lo zenges to help ease the pain. If it continues please contact us. -If you feel feverish, have a temperature of 101 degrees or higher, persistent n ausea and vomiting, abdominal pain or dark stools; please notify your nurse or G I physician. -You may have abdominal cramping following the procedure this can be relieved by belching or passing air. -If you have redness or swelling at the IV site, place a warm, wet washcloth ove r the affected areas for 15 minutes, 3-4 times a day until the redness subsides. If symptoms continue for 2-3 days, contact your regular physician. - If you have bleeding from your mouth, over 2 tablespoons and increasing, pleas e notify your physician. A small amount of bleeding is normal if a biopsy or po lyps were taken. If you are vomiting blood you need to seek immediate medical a ttention. - You may resume all your routine medications, if medications need to be held yo ur physician and/or nurse will notify you post procedure. SPECIFIC INSTRUCTIONS OUTPATIENTS: A. Because of sedation and lack of coordination, FOR THE NEXT 24 HOURS, DO NOT: 1. Operate any motorized vehicle - this includes driving. 2. Sign any legal documents or conduct important business matters. 3. Use any dangerous machinery (chain saw, lawnmower, etc.). 4. Drink any alcoholic beverages. Should you have any questions or concerns after your procedure please call [phone] M-F 8am-5:00 pm. After 5:00 pm, holidays or weekends call [phone] a nd ask for the GI Doctor director of extension work. documented in this encounter Medications at Time of Discharge [...] Discharge Disposition Code Departure Means Destination Disposition Wheelchair Home or Self Care documented in this encounter Progress Notes * Viki Estrella, RN - 01/07/2021 10:57 AM CDT Images from the original note were not included. Called to prescreen for her Urgent Upper EUS and ERCP - spoke to patient and her daughter Evelyn. Pt is getting ready to move. Requested to be scheduled on Scheduled her on January 21 at 1330 to be in admissions at 1200 after getti ng labs drawn at 1130. Prep reviewed over the phone until they where able to deonte balize understanding. Instructions were also mailed to her at this time. Pt has had both of her COVID 19 vaccines greater than 2 weeks ago. Pre procedure COVID 19 testing is not necessary for her. ERCP (ENDOSCOPIC RETROGRADE CHOLANGIOPANCREATOGRAPHY) PATIENT NAME: Pearl Pedraza You are scheduled for an ERCP and Upper Endoscopy with Ultrasound (EUS) on , January 21, 2021 at 1:30 PM. Report to the Outpatient Lab in the Medical Office Building, 2 hours (11:30 PM) before your procedure to have labs drawn. The contact number for the outpatient lab is [phone] and is located on the 1st floor, directly to the left of the Information Desk. You must arrive by: 12:00 PM and check in at ADMISSIONS at [facility], [address] [place] [address], [place]., [address]. 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 Please bring the parking ticket in with you. It will cost 3 dollars even if it is stamped. If you need to reschedule or if you have questions call [phone] between the hours of 7:30 AM and 4:00 PM. ERCP stands for endoscopic retrograde cholangiopancreatography. This procedure i s used to view the biliary and pancreatic ducts. It is used to evaluate disease s that affect the biliary and pancreatic ducts. It is also used to help find an d treat blockages that may be present. 5 Days Prior: 1. Check with your prescribing physician for instructions about stopping your bl ood thinner. Examples of blood thinners are Fish oil, Vitamin D, Aleve, Aspirin, Coumadin, Eliquis, Ibuprofen, Naproxen, Plavix, and Xarelto. 2. Do not give yourself a Lovenox injection the morning of the test. Lovenox inj ections may be taken as usual through the day before your test. 3. Contact the office if you have an allergy to contrast dye. Medications will b e ordered for you to take at home prior to your procedure. Contrast dye is injec marium through a catheter to make the duct show up better on the x-rays. 4. Discuss diabetic medications and insulin with the prescribing physician. The Day of Your Exam: 1. Do not eat or drink anything after midnight, the night before your exam. Not xochitl by mouth. This includes GUM or CANDY. a. Chewing tobacco must be stopped 6 hours before your scheduled procedure. b. If you have an melt superintendant test, take ONLY your essential morning medicatio ns (heart, blood pressure, seizure, etc.) with a small sip of water. 2. You will be sedated for the procedure. A responsible adult must drive you alexander e (no Uber, taxis, or buses are allowed). If you do not have a commercial truck driver we will be unable to do the test. 3. You will be here for 3-4 hours from arrival time. 4. You will not be able to return to work the same day. 5. Please bring a list of your current medications and the dosages with you. The Procedure: A thin tube (endoscope) is placed into your throat. It is advanced from the throat, through the upper digestive tract, to the common bile duct opening. The endoscope lets the healthcare provider see the common bile and pancreatic ducts on a video screen. A cut may be made where the common bile duct opens to the duodenum to make i t easier to remove stone(s). An imaging technique that uses x-rays to obtain real-time moving images of i nternal organs is called fluoroscopy. It is used to watch and guide progress of the procedure. In some cases, a plastic tube (stent) is placed to hold the ducts open. This stent will be replaced or left to fall out on its own and be passed in the stoo l. Please follow up with the office at [phone], to see if a return appointm ent is required. The healthcare provider will discuss the results with you after the test. Biopsy results take about 10 business days. documented in this encounter H&P Notes * Dez Cunningham, DO - 01/21/2021 1:10 PM CDT Pre Procedure History and Physical/Sedation Plan Name:Pearl Frias :1935 Age: 85 y.o. Date of Service: 01/21/2021 Date of Procedure: 01/21/2021 Planned Procedure(s): GI: ERCP and EUS possible liver biopsy Sedation/Medication Plan: MAC (Monitored Anesthesia Care) Discussion/Reviews: Physician has discussed risks and alternatives of this type of sedation and above planned procedures with patient Chief Complaint: Liver mass History of Present Illness: Pearl Frias is a 85 y.o. female who presents for evaluation of the above, MRI 01/01 with a 2.4cm mass in the posterior/medial R hepatic lobe, concerning for malignancy, CA 19-9 is 419 Previous Anesthetic/Sedation History: reviewed Medical History: Diagnosis Date Acquired hypothyroidism Back pain Vision decreased History reviewed. No pertinent surgical history. Pertinent medical/surgical history reviewed Pertinent family history reviewed Social History Tobacco Use Smoking status: Former Smoker Packs/day: 0.50 Types: Cigarettes Quit date: 1995 Years since quittin.6 Smokeless tobacco: Never Used Vaping Use Vaping Use: Never assessed Substance Use Topics Alcohol use: Not Currently Drug use: Never Social History Substance and Sexual Activity Drug Use Never Allergies: Patient has no known allergies. Medications Current Facility-Administered Medications Medication lactated ringers infusion Review of Systems: A 14 point review of systems was negative except for: RUQ abdominal pain Physical Exam: Temp: 36.6 C (97.9 F) (01/21 1248) Pulse: 72 (01/21 1248) Respirations: 23 PER MINUTE (01/21 1248) BP: 133/77 (01/21 1248) General appearance: alert, well-developed and well-nourished Lungs: no respiratory distress, speaking in full sentences Heart: regular rate and rhythm by pulse only Abdomen: soft, TTP RUQ Extremities: extremities normal, atraumatic Airway: Per anesthesia Anesthesia Classification: ASA III (A patient with a severe systemic disease th at limits activity, but is not incapacitating) NPO Status: Acceptable Lab/Radiology/Other Diagnostic Tests Labs: Relevant labs reviewed Dez Cunningham DO Pager [phone] documented in this encounter Plan of Treatment Order Schedule Name Type Priority Associated Diag noses Release Upon Ordering for 1 Occurrences starting 01/21/2021 CYTOLOGY ALIMENTARY Pathology Routine Liver mass documented as of this encounter Procedures Comments Procedure Name Priority Date/Time Associated Diag nosis GI ENDO CATH ETHEL & PANC Routine 01/21/2021 DUCT 3:20 PM CDT CHROMOSOMES FISH DNA Routine 01/21/2021 Liver mas s PROBE 2:49 PM CDT ERCP 01/21/2021 2:08 PM CDT ENDOSCOPIC ULTRASOUND 01/21/2021 REPORT 1:41 PM CDT ENDOSCOPIC RETROGRADE 01/21/2021 Liver mass CHOLANGIOPANCREATOGRAPHY 1:40 PM CDT WITH PLACEMENT ENDOSCOPIC STENT INTO BILIARY/ PANCREATIC DUCT - EACH STENT Special Needs 4 day reminder call/spoke w/pt and pt is not wanting to do Covid swab due to being vaccinated and currently in the middle of a move;wants to proceed without Covid swab if possible; [facility]: [facility] 1043 Called to prescreen for end oscopy - spoke to patient. SS ENDOSCOPIC RETROGRADE 01/21/2021 Liver mass CHOLANGIOPANCREATOGRAPHY 1:40 PM CDT WITH SPHINCTEROTOMY/ PAPILLOTOMY Special Needs 4 day reminder call/spoke w/pt and pt is not wanting to do Covid swab due to being vaccinated and currently in the middle of a move;wants to proceed without Covid swab if possible; notified - [facility] Call: 01/07/2021 @ 1043 Called to prescreen for end oscopy - spoke to patient. SS ESOPHAGOSCOPY WITH 01/21/2021 Liver mass ENDOSCOPIC ULTRASOUND 1:40 PM CDT EXAMINATION - FLEXIBLE Special Needs 4 day reminder call/spoke w/pt and pt is not wanting to do Covid swab due to being vaccinated and currently in the middle of a move;wants to proceed without Covid swab if possible; notified - [facility] Call: 01/07/2021 @ 1043 Called to prescreen for end oscopy - spoke to patient. SS ENDOSCOPIC RETROGRADE 01/21/2021 Liver mass CHOLANGIOPANCREATOGRAPHY 1:40 PM CDT Special Needs 4 day reminder call/spoke w/pt and pt is not wanting to do Covid swab due to being vaccinated and currently in the middle of a move;wants to proceed without Covid swab if possible; notified - [facility] Call: 01/07/2021 @ 1043 Called to prescreen for end oscopy - spoke to patient. SS TELEMETRY STRIPS-SCAN 01/21/2021 12:00 AM CDT documented in this encounter Results * GI ENDO CATH ETHEL & PANC DUCT (01/21/2021 3:20 PM CDT) Specimen Narrative Performed At This order has been auto finalized and does not conta in a result. [facility] Performing Organization Address City/State/ZIP Code P jacinta Number [facility] * CHROMOSOMES FISH DNA PROBE (01/21/2021 2:49 PM CDT) Chromosomes Cytogenetics Report Available [facility]IN [facility] Fish DNA Probe in Epic Specimen Tissue - Small Bowel Narrative Performed At This result has an attachment that is n ot available. Performing Organization Address City/State/ZIP Code P jacinta Number MAIN LAB [address] [place] [address] * ERCP (01/21/2021 2:08 PM CDT) Provation Patient Name: Rodriguez NICHOLSON OTHER Report [facility] RESULTS Procedure Date: 01/21/2021 2:08 PM CSN: [id number] Date of : 1935 Gender: Female Attending Physician: Eugene Pedraza MD Procedure: ERCP Indications: Elevated liver enzymes, patient with liver mass on MRI and elevated CA19-9 >400 Providers: Eugene Pedraza MD (Doctor), Dez Cunningham (Fellow), Bernice Sawyer (Nurse), Brock Membreno, Recreation Engineer (Recreation Engineer) Referring Physician: Liz Layton Medications: General Anesthesia Complications: No immediate complications. Procedure: Pre-Anesthesia Assessment: - Prior to the procedure, a History and Physical was performed, and patient medications and allergies were reviewed. The patient is competent. The risks and benefits of the procedure and the sedation options and risks were discussed with the patient. All questions were answered and informed consent was obtained. Patient identification and proposed procedure were verified by the physician, the nurse, the housekeeping assistant and the distribution technician in the endoscopy suite. Mental Status Examination: alert and oriented. ASA Grade Assessment: III - A patient with severe systemic disease. After reviewing the risks and benefits, the patient was deemed in satisfactory condition to undergo the procedure. The anesthesia plan was to use general anesthesia. Immediately prior to administration of medications, the patient was re-assessed for adequacy to receive sedatives. The heart rate, respiratory rate, oxygen saturations, blood pressure, adequacy of pulmonary ventilation, and response to care were monitored throughout the procedure. The physical status of the patient was re-assessed after the procedure. After obtaining informed consent, the scope was passed under direct vision. Throughout the procedure, the patient's blood pressure, pulse, and oxygen saturations were monitored continuously. The Duodenoscope 2703 was introduced through the mouth, and advanced to the duodenum and used to inject contrast into the bile duct. The ERCP was accomplished without difficulty. The patient tolerated the procedure well. Findings: Duodenoscope was advanced to the second portion of the duodenum. Limited views of the esophagus, stomach, duodenum were obtained were unremarkable. The pylorus was patent. The ampulla was seen in the second portion of the duodenum and appeared small but unremarkable. Cannulation of the CBD was performed with DASH-25. Cholangiogram showed normal-appearing left and right hepatic ducts without evidence of stricture. The CBD was nondilated and approximately 5 to 6 mm in diameter. 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 A 6 to 7 mm traction biliary sphincterotomy was performed. Brushing was obtained of the distal CBD stricture x2 and sent for FISH and cytology. At this time it was determined to go back in with an EUS scope to further evaluate the pancreatic head/uncinate given distal CBD stricture. Therefore we did not place a VIABIL stent and instead elected to place a 10 Burundian/7 cm straight plastic biliary stent into the CBD with good bile flow at the end of the procedure. Acquisition interpretation of fluoroscopic images of the CBD was performed during this procedure. Impression: Duodenoscope was advanced to the second portion of the duodenum. Limited views of the esophagus, stomach, duodenum were obtained were unremarkable. The pylorus was patent. The ampulla was seen in the second portion of the duodenum and appeared small but unremarkable. Cannulation of the CBD was performed with DASH-25. Cholangiogram showed normal-appearing left and right hepatic ducts without evidence of stricture. The CBD was nondilated and approximately 5 to 6 mm in diameter. 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 A 6 to 7 mm traction biliary sphincterotomy was performed. Brushing was obtained of the distal CBD stricture x2 and sent for FISH and cytology. At this time it was determined to go back in with an EUS scope to further evaluate the pancreatic head/uncinate given distal CBD stricture. Therefore we did not place a VIABIL stent and instead elected to place a 10 Burundian/7 cm straight plastic biliary stent into the CBD with good bile flow at the end of the procedure. Acquisition interpretation of fluoroscopic images of the CBD was performed during this procedure. Estimated Blood Loss: Estimated blood loss was minimal. Recommendation: - Patient has a contact number available for emergencies. The signs and symptoms of potential delayed complications were discussed with the patient. Return to normal activities tomorrow. Written discharge instructions were provided to the patient. - Resume previous diet. - Continue present medications. - Await cytology results. - Return to this GI lab for stent exchange at ERCP in 8 weeks. - Discharge patient to home. Scope In: 2:10:29 PM Scope Out: 2:45:38 PM Total Procedure Duration Time 0 hours 35 minutes 9 seconds Procedure Code(s): --- Professional --- 50568, Endoscopic retrograde cholangiopancreatography (ERCP); with placement of endoscopic stent into biliary or pancreatic duct, including pre- and post-dilation and guide wire passage, when performed, including sphincterotomy, when performed, each stent [id number], Endoscopic catheterization of the biliary ductal system, radiological supervision and interpretation Diagnosis Code(s): --- Professional --- R74.8, Abnormal levels of other serum enzymes CPT copyright 2020 [employer]. All rights reserved. The codes documented in this report are preliminary and upon tar distillation supervisor review may be revised to meet current compliance requirements. Attending Participation: I was present and participated during the entire procedure, including non-acosta portions. MD Eugene Chi MD 01/21/2021 3:22:06 PM The attending physician has electronically signed and finalized this document. Dez Cunningham, Number of Addenda: 0 Note Initiated On: 01/21/2021 2:08 PM Specimen Performing Organization Address City/State/ZIP Code P jacinta Number [facility] OTHER RESULTS * ENDOSCOPIC ULTRASOUND REPORT (01/21/2021 1:41 PM CDT) Provation Patient Name: Rodriguez NICHOLSON OTHER Report [facility] RESULTS Procedure Date: 01/21/2021 1:41 PM CSN: [id number] Date of : 1935 Gender: Female Attending Physician: Eugene Pedraza MD Procedure: Upper EUS Indications: Suspected mass in liver on MRI, Elevated CA 19-9, patient with 2.4 cm right medial/posterior lobe mass on MRI Providers: Eugene Pedraza MD (Doctor), Dez Cunningham (Fellow), Bernice Sawyer (Nurse), Brock Membreno, Recreation Engineer (Recreation Engineer) Referring Physician: Liz Layton Medications: General Anesthesia Complications: No immediate complications. Procedure: Pre-Anesthesia Assessment: - Prior to the procedure, a History and Physical was performed, and patient medications and allergies were reviewed. The patient is competent. The risks and benefits of the procedure and the sedation options and risks were discussed with the patient. All questions were answered and informed consent was obtained. Patient identification and proposed procedure were verified by the physician, the nurse, the housekeeping assistant and the distribution technician in the endoscopy suite. Mental Status Examination: alert and oriented. ASA Grade Assessment: III - A patient with severe systemic disease. After reviewing the risks and benefits, the patient was deemed in satisfactory condition to undergo the procedure. The anesthesia plan was to use general anesthesia. Immediately prior to administration of medications, the patient was re-assessed for adequacy to receive sedatives. The heart rate, respiratory rate, oxygen saturations, blood pressure, adequacy of pulmonary ventilation, and response to care were monitored throughout the procedure. The physical status of the patient was re-assessed after the procedure. After obtaining informed consent, the endoscope was passed under direct vision. Throughout the procedure, the patient's blood pressure, pulse, and oxygen saturations were monitored continuously. The Endosonoscope was introduced through the mouth, and advanced to the second part of duodenum. The upper EUS was accomplished without difficulty. The patient tolerated the procedure well. Findings: Linear duodenoscope was advanced to the second portion of the duodenum. The left lobe of the liver was visualized and showed no intrahepatic masses or biliary ductal dilation. The celiac axis was visualized and appeared unremarkable. There were no celiac lymph nodes visualized. The left adrenal gland appeared normal. There is no abnormality within the pancreatic parenchyma to suggest chronic pancreatitis, pancreatic mass, pancreas divisum. The PD measured 3.4 mm in the head and 1.3 mm in the body. Right lobe of the liver was carefully inspected due to MRI findings previously noted. No intrahepatic masses were visualized on EUS. The CBD measured 5.9 mm and was without stones or sludge. Impression: - Linear duodenoscope was advanced to the second portion of the duodenum. The left lobe of the liver was visualized and showed no intrahepatic masses or biliary ductal dilation. The celiac axis was visualized and appeared unremarkable. There were no celiac lymph nodes visualized. The left adrenal gland appeared normal. There is no abnormality within the pancreatic parenchyma to suggest chronic pancreatitis, pancreatic mass, pancreas divisum. The PD measured 3.4 mm in the head and 1.3 mm in the body. Right lobe of the liver was carefully inspected due to MRI findings previously noted. No intrahepatic masses were visualized on EUS. The CBD measured 5.9 mm and was without stones or sludge. - No specimens collected. Estimated Blood Loss: Estimated blood loss: none. Recommendation: - Patient has a contact number available for emergencies. The signs and symptoms of potential delayed complications were discussed with the patient. Return to normal activities tomorrow. Written discharge instructions were provided to the patient. - Resume previous diet. - Continue present medications. - Perform an ERCP. Scope In: 1:51:03 PM Scope Out: 2:02:02 PM Total Procedure Duration Time 0 hours 10 minutes 59 seconds Procedure Code(s): --- Professional --- 92404, Esophagogastroduodenoscopy, flexible, transoral; with endoscopic ultrasound examination limited to the esophagus, stomach or duodenum, and adjacent structures Diagnosis Code(s): --- Professional --- R97.8, Other abnormal tumor markers R93.2, Abnormal findings on diagnostic imaging of liver and biliary tract CPT copyright 2020 [employer]. All rights reserved. The codes documented in this report are preliminary and upon tar distillation supervisor review may be revised to meet current compliance requirements. Attending Participation: I was present and participated during the entire procedure, including non-acosta portions. MD Eugene Chi MD 01/21/2021 3:22:22 PM The attending physician has electronically signed and finalized this document. Dez Cunningham, Number of Addenda: 0 Note Initiated On: 01/21/2021 1:41 PM Specimen Performing Organization Address City/State/ZIP Code P jacinta Number KU OTHER RESULTS * TELEMETRY STRIPS-SCAN (01/21/2021 12:00 AM CDT) Narrative Performed At This result has an attachment that is n ot available. Ordered by an unspecified provider. documented in this encounter Visit Diagnoses Diagnosis Liver mass Unspecified disorder of liver documented in this encounter Administered Medications Action Date Dose Rate Site Medication Order MAR Action 01/21/2021 2:51 PM CDT 15 mL iohexoL (OMNIPAQUE-300) 300 mg/mL Given injection INTRA-PROCEDURE MED, Starting on Paola 01/21/21 at 1451, Until [place] 01/21/21 at 1501, Intra-op lactated ringers infusion 1,000 mL, Intravenous, at 20 mL/hr, CONTINUOUS, Starting on Pa[place] 01/21/21 at 1245, Until [place] 01/21/21 at 1808 documented in this encounter Active and Recently Administered Medications Times are shown in CDT. 01/20/2021 01/21/2021 Medication Order 01/19/2021 1245 (Due) lactated ringers infusion 1,000 mL, Intravenous, at 20 mL/hr, CONTINUOUS, Starting on Paola 01/21/21 at 1245, Until [place] 01/21/21 at 1808 01/20/2021 01/21/2021 Medication Order 01/19/2021 1451 (Given - Provider: Bernice Sawyer RN ) iohexoL (OMNIPAQUE-300) 300 mg/mL injection (CANCELED) INTRA-PROCEDURE MED, Starting on Paola 01/21/21 at 1451, Until [place] 01/21/21 at 1501, Intra-op documented in this encounter Orders First Ordered Date Medications Ordered That Might Not Have Count Last Ordered Date Been Administered lactated ringers infusion 1 01/21/2021 First Ordered Date Discharge Count Last Ordered Date DISCHARGE PATIENT NOW 01/21/2021 documented in this encounter Additional Health Concerns Assessment Noted Time A fall risk assessment has been completed for the pat ient 01/21/2021 12:55 PM CDT PHQ-2 Depression Total Score: 2 01/06/2021 9:59 AM CDT documented as of this encounter
--- OUTSIDE RECORDS SUMMARY | 2021-02-07 15:49 | XMS REPORT | Clinical Summary ---
Demographics Home Phone Preferred Language Unknown Marital Status Unknown Zoroastrian Affiliation 1077 Race White Ethnic Group Not or Author Author [facility]ly [facility], [facility] ity Organization [facility] it Address Unknown Phone Unavailable Care Team Providers Care Knuckler Name Role Phone PP Unavailable Allergies Not on File Medications Not on file Active Problems Not on file Social History Date Tobacco Use Types Packs/Day Years Used Never Assessed Sex Assigned at Date Recorded Not on file Plan of Treatment Not on file Results Not on filefrom Last 3 Months
--- OUTSIDE RECORDS SUMMARY | 2021-02-07 15:49 | XMS REPORT | Encounter Summary ---
Author Author [facility] Organization [facility] Address Unknown Phone Unavailable Care Team Providers Care Collections And Archives Director Name Role Phone Catherine Silva MD PCP Reason for Visit * Auth/Cert Referred By Contact Referred To Contact Status Reason Specialty Diagnoses / Procedures Diagnoses Liver mass Liver mass [R16.0] P rocedures MO EGD INTRMURAL US NEEDLE ASPIRATE/BIOPSY ESOPHAGS MO ERCP DX COLLECTION SPECIMEN BRUSHING/WASHING ESOPHAGOGASTRODUOD ENOSCOPY WITH TRANSENDOSCOPIC ULTRASOUND GUIDED FINE NEEDLE ASPIRATION/ BIOPSY ENDOSCOPIC RETROGRADE CHOLANGIOPANCREATO GRAPHY Encounter Details Care Team Description Date Type Department Michele Pedraza MD [address] [facility] [place] [address] 01/21/2021 Hospital Laboratory: Main Ca mpus, Encounter [facility] [address] [place] [address]. [address], [address] [place] [address] Social History Date Tobacco Use Types Packs/Day [...] Procedure Name Priority Date/Time Associated Diag nosis HC PT(INR) Routine 01/21/2021 Pre-procedure l ab exam 11:52 AM CDT Disease of biliary tract, unspecified HC CBC,AUTOMATED Routine 01/21/2021 Pre-procedure lab exam 11:52 AM CDT Disease of biliary tract, unspecified HC COMPREHENSIVE Routine 01/21/2021 Pre-procedure lab exam METABOLIC PANEL 11:52 AM CDT HC NON-PACKING MACHINE TENDER/THIN PREP 01/21/2021 10:04 AM CDT documented in this encounter Results * CBC (01/21/2021 11:52 AM CDT) White Blood 7.6 4.5 - 11.0 K/UL [facility] Cells RBC 4.43 4.0 - 5.0 M/UL [facility] Hemoglobin 14.0 12.0 - 15.0 GM/DL [facility] Hematocrit 41.2 36 - 45 % [facility] MCV 92.9 80 - 100 FL [facility] MCH 31.6 26 - 34 PG [facility] MCHC 34.0 32.0 - 36.0 G/DL [facility] RDW 14.1 11 - 15 % [facility] Platelet Count 239 150 - 400 K/UL [facility] MPV 8.4 7 - 11 FL [facility] Specimen Blood Performing Organization Address City/State/ZIP Code P jacinta Number [facility] [address] [place] [address] * COMPREHENSIVE METABOLIC PANEL (01/21/2021 11:52 AM CDT) Sodium 140 137 - 147 MMOL/L [facility] Potassium 4.3 3.5 - 5.1 MMOL/L [facility] Chloride 105 98 - 110 MMOL/L [facility] Glucose 93 70 - 100 MG/DL [facility] Blood Urea 15 7 - 25 MG/DL [facility] Nitrogen Creatinine 0.81 0.4 - 1.00 MG/DL [facility] Calcium 9.7 8.5 - 10.6 MG/DL [facility] Total Protein 7.2 6.0 - 8.0 G/DL [facility] Total Bilirubin 0.9 0.3 - 1.2 MG/DL [facility] Albumin 4.2 3.5 - 5.0 G/DL [facility] Alk Phosphatase 154 (H) 25 - 110 U/L [facility] AST (SGOT) 23 7 - 40 U/L [facility] CO2 26 21 - 30 MMOL/L [facility] ALT (SGPT) 24 7 - 56 U/L [facility] Anion Gap 9 3 - 12 [facility] eGFR Non >60 >60 mL/min [facility] Comment: [place] The eGFR is not validated f or use in drug dosing adjustments. Continue to use estimated creatinine clearance per dosing reference text. Please contact the Clinical Pharmacist for questions. eGFR >60 >60 mL/min MAIN LAB [place] Comment: The eGFR is not validated for use in drug dosing adjustments. Continue to use estimated creatinine clearance per dosing reference text. Please contact the Clinical Pharmacist for questions. Specimen Blood Performing Organization Address City/State/ZIP Code P jacinta Number [facility] [address] [place] [address] * PROTIME INR (PT) (01/21/2021 11:52 AM CDT) INR 1.0 0.8 - 1.2 [facility] Specimen Blood Performing Organization Address City/State/ZIP Code P jacinta Number [facility] [address] [place] [address] * NON-PACKING MACHINE TENDER CYTOLOGY (BODY FLUIDS/TISSUE) (01/21/2021 10:04 AM CDT) Cytology [facility] [email or web address] Department of Pathology and Laboratory Medicine [address] [place] [address] [place] [address] Surgical Pathology Office: [phone] CYTOLOGY REPORT NAME: LEIGHA FRIAS CYTOLOGY #: [id number] MR #: [id number] ALT ID #: HELEN #: [id number] LOCATION: [facility] DATE OF PROCEDURE: 01/21/2021 AGE: 85 SEX: F DATE RECEIVED: 01/22/2021 : 1935 TIME RECEIVED: 10:04 PHYSICIAN: MICHELE ROSE DATE OF REPORT: 01/25/2021 COPY TO: DATE OF PRINTIN01/25/2021 Material Received: A: Common Bile Duct Brushing History: 85-year-old female with a history of a right hepatic lobe mass. Gross Description: (1 ThinPrep, 1 Pap direct smear) Received specimen in 30mLs of clear pale yellow cytolyt with a brush. ############################## ############################## ############ Final Diagnosis: A. Common Bile Duct Brushing: Negative for malignant cells. Attestation: By this signature, I attest that I have personally formulated the final interpretation expressed in this report and that the above diagnosis is based upon my examination of the slides and/or other material indicated in this report. +++Electronically Signed Out By+++ pq/01/25/2021 Interpreted by: MD Dyan Babb DO, Resident Cytology Specimen Performing Organization Address City/State/ZIP Code P jacinta Number MAIN LAB [address] [place] [address] documented in this encounter Visit Diagnoses Diagnosis Pre-procedure lab exam Pre-procedural laboratory examination Disease of biliary tract, unspecified documented in this encounter Additional Health Concerns Assessment Noted Time A fall risk assessment has been completed for the pat ient 01/21/2021 12:55 PM CDT PHQ-2 Depression Total Score: 2 01/06/2021 9:59 AM CDT documented as of this encounter
--- OUTSIDE RECORDS SUMMARY | 2021-02-07 15:49 | XMS REPORT | Encounter Summary ---
Author Author [facility] Organization [facility] Address Unknown Phone Unavailable Care Team Providers Care Scrap Metal Collector Name Role Phone Catherine Silva MD PCP Ira Colunga 8004 Unavailable Marielena Trujillo 7 Liz Layton MD 25 Encounter Details Care Team Description Date Type Department 02/02/2021 Travel Social History Date Tobacco Use Types [...] / COVID-19? documented as of this encounter Functional Status Date of Assessment [...] impairment: No documented as of this encounter Plan of [...]
--- OUTSIDE RECORDS SUMMARY | 2021-02-07 15:49 | XMS REPORT | Encounter Summary ---
Author Author [facility] Organization [facility] Address Unknown Phone Unavailable Care Team Providers Care Supervisor Cured Meats Name Role Phone Catherine Silva MD PCP Reason for Visit * Auth/Cert Referred By Contact Referred To Contact Status Reason Specialty Diagnoses / Procedures Diagnoses Liver mass Liver mass [R16.0] P rocedures AR EGD INTRMURAL US NEEDLE ASPIRATE/BIOPSY ESOPHAGS AR ERCP DX COLLECTION SPECIMEN BRUSHING/WASHING ESOPHAGOGASTRODUOD ENOSCOPY WITH TRANSENDOSCOPIC ULTRASOUND GUIDED FINE NEEDLE ASPIRATION/ BIOPSY ENDOSCOPIC RETROGRADE CHOLANGIOPANCREATO GRAPHY Encounter Details Care Team Description Date Type Department Eugene Pedraza MD [address] [facility] [id number] [place] [address] Liver mass 01/21/2021 Hospital Endoscopy: Main [place] pus, Encounter Main Hospital [address] [facility] [address] [place] [address] Social History Date Tobacco Use [...] Signs Reading Time Taken Comments Vital Sign 126/63 01/21/2021 3:35 PM CDT Blood Pressure 73 01/21/2021 3:35 PM CDT Pulse 37.1 C (98.7 F) 01/21/2021 3:01 PM CDT Temperature - - Respiratory Rate 93% 01/21/2021 3:35 PM CDT Oxygen Saturation - - Inhaled [...] or concerns after your procedure please call M-F 8am-5:00 pm. After 5:00 pm, holidays or weekends call [phone] a nd ask for the GI Doctor motor room controller. documented in this encounter Medications at Time [...] in this encounter Progress Notes * Viki Estrella RN - 01/07/2021 10:57 AM CDT Images [...] contact number for the outpatient lab is [phone] and is located on the 1st floor, directly to the left of the Information Desk. You must arrive by: 12:00 PM and check in at ADMISSIONS at [facility], [address] [place]., [address]. Your motorcycle delivery driver will need to park in the [employer] garage. Please bring the parking ticket in with you. It will cost 3 dollars even if it is stamped. If you need to reschedule or if you have questions call [phone] between the hours of 7:30 AM and [...] scheduled procedure. b. If you have an stacker straightener test, take ONLY your essential morning medicatio ns (heart, blood pressure, seizure, etc.) with a small sip of water. 2. You will be sedated for the procedure. A responsible adult must drive you alexander e (no Uber, taxis, or buses are allowed). If you do not have a motorcycle delivery driver we will be unable to do [...] Please follow up with the office at [phone], to see if a return appointm ent [...] Relevant labs reviewed Dez Cunningham DO Pager [phone] documented in this encounter Plan of Treatment [...] without Covid swab if possible; [facility]: [facility] @ 1043 Called to prescreen [...] without Covid swab if possible; [facility]: 01/07/2021 @ 1043 Called to prescreen for end oscopy - spoke to patient. ESOPHAGOSCOPY WITH 01/21/2021 Liver mass ENDOSCOPIC ULTRASOUND 1:40 PM CDT EXAMINATION - FLEXIBLE Special Needs 4 day reminder call/spoke w/pt and pt is not wanting to do Covid swab due to being vaccinated and currently in the middle of a move;wants to proceed without Covid swab if possible; [facility]: 01/07/2021 @ 1043 Called to prescreen for end oscopy - spoke to patient. ENDOSCOPIC RETROGRADE 01/21/2021 Liver mass CHOLANGIOPANCREATOGRAPHY 1:40 PM CDT Special Needs 4 day reminder call/spoke w/pt and pt is not wanting to do Covid swab due to being vaccinated and currently in the middle of a move;wants to proceed without Covid swab if possible; [facility]: 01/07/2021 @ 1043 Called to prescreen for end oscopy - spoke to patient. TELEMETRY STRIPS-SCAN 01/21/2021 12:00 AM CDT documented in this encounter Results * GI ENDO CATH ETHEL & PANC DUCT (01/21/2021 3:20 PM CDT) Specimen Narrative Performed At This order has been auto finalized and does not conta in a result. [facility] Performing Organization Address City/State/ZIP Code P jacinta Number [facility] * CHROMOSOMES FISH DNA PROBE (01/21/2021 2:49 PM CDT) Chromosomes Cytogenetics Report Available MAIN LAB Fish DNA Probe in Epic Specimen Tissue - Small Bowel Narrative Performed At This result has an attachment that is n ot available. Performing Organization Address City/State/ZIP Code P jacinta Number MAIN LAB [address] [place] [address] * ERCP (01/21/2021 2:08 PM CDT) Provation Patient Name: Rodriguez NICHOLSON OTHER Report Pearl RESULTS Procedure Date: 01/21/2021 2:08 PM CSN: [id number] Date of : 1935 Gender: Female Attending Physician: Eugene Pedraza MD Procedure: ERCP Indications: Elevated liver enzymes, patient with liver mass on MRI and elevated CA19-9 >400 Providers: Eugene Pedraza MD (Doctor), Dez Cunningham (Fellow), Bernice Sawyer (Nurse), Brock Membreno Tattoo Identifier (Tattoo Identifier) Referring Physician: Liz Layton Medications: General Anesthesia [...] verified by the physician, the nurse, the web manager and the electrical manufacturing technician in the endoscopy suite. Mental Status [...] and instead elected to place a 10 Colombian/7 cm straight plastic biliary stent into the [...] and instead elected to place a 10 [place]ian/7 cm straight plastic biliary stent into the [...] 9 seconds Procedure Code(s): --- Professional --- 55554, Endoscopic retrograde cholangiopancreatography (ERCP); with placement of endoscopic stent into biliary or pancreatic duct, including pre- and post-dilation and guide wire passage, when performed, including sphincterotomy, when performed, each stent 97177, Endoscopic catheterization of the biliary ductal system, radiological supervision and interpretation Diagnosis Code(s): --- Professional --- R74.8, Abnormal levels of other serum enzymes CPT copyright 2020 [employer]. All rights reserved. The codes documented in this report are preliminary and upon instructional systems designer review may be revised to meet current [...] Pearl RESULTS Procedure Date: 01/21/2021 1:41 PM [facility]: [id number] Date of : 1935 Gender: Female Attending Physician: Eugene Pedraza MD Procedure: Upper EUS Indications: Suspected mass in liver on MRI, Elevated CA 19-9, patient with 2.4 cm right medial/posterior lobe mass on MRI Providers: Eugene Pedraza MD (Doctor), Dez Cunningham (Fellow), Bernice Sawyer (Nurse), Brock Membreno, Tattoo Identifier (Tattoo Identifier) Referring Physician: Liz Layton Medications: General Anesthesia [...] verified by the physician, the nurse, the web manager and the electrical manufacturing technician in the endoscopy suite. Mental Status [...] 59 seconds Procedure Code(s): --- Professional --- 22929, Esophagogastroduodenoscopy, flexible, transoral; with endoscopic ultrasound examination limited to the esophagus, stomach or duodenum, and adjacent structures Diagnosis Code(s): --- Professional --- R97.8, Other abnormal tumor markers R93.2, Abnormal findings on diagnostic imaging of liver and biliary tract CPT copyright 2020 [employer]. All rights reserved. The codes documented in this report are preliminary and upon instructional systems designer review may be revised to meet current [...] Dose Rate Site Medication Order MAR Action lactated ringers infusion 1,000 mL, Intravenous, at [...] Have Count Last Ordered Date Been Administered iohexoL (OMNIPAQUE-300) 300 mg/mL 1 12/28 injection lactated ringers infusion 1 01/21/2021 First Ordered Date Discharge Count Last Ordered Date DISCHARGE PATIENT NOW 1 01/21/2021 documented in this encounter Additional Health Concerns Assessment Noted Time A fall risk assessment has been completed for the pat ient 01/21/2021 12:55 PM CDT PHQ-2 Depression Total Score: 2 01/06/2021 9:59 AM CDT documented as of this encounter
--- OUTSIDE RECORDS SUMMARY | 2021-02-07 15:49 | XMS REPORT | Encounter Summary ---
Author Author [facility] Organization [facility] Address Unknown Phone Unavailable Care Team Providers Care Internet Sourcer Name Role Phone No Pcp, Na PCP Unavailable Catherine Silva MD PCP Ira Colunga 0362 Unavailable Marielena Trujillo APRN-SAMANTHA 7 Liz Layton MD 25 Encounter Details Care Team Description Date Type Department Mendy Edwards ANALYTICS DIRECTOR-QUILL STRIPPER [address] Ortho/[facility] [address] [place] [address] Liver mass (Primary Dx) 01/06/2021 Prep for Case Gastroenterology: [facility], [facility] [address] [address] Social History Date Tobacco Use Types Packs/Day [...] disorder of liver documented in this encounter Orders First Ordered Date Nursing Count Last Ordered Date COVID-19 TESTING NOT REQUIRED 1 01/07/20 21 First Ordered Date Case Request Count Last Ordered Date CASE REQUEST GI ENDOSCOPY 1 01/06/2021 documented in this encounter Additional Health Concerns Assessment Noted Time PHQ-2 Depression Total Score: 2 01/06/2021 9:59 AM CDT documented as of this encounter
--- OUTSIDE RECORDS SUMMARY | 2021-02-07 15:49 | XMS REPORT | Encounter Summary ---
Author Author [facility] Organization [facility] Address Unknown Phone Unavailable Care Team Providers Care Railroad Passenger Agent Name Role Phone Catherine Silva MD PCP Encounter Details Care Team Description Date Type Department Eugene Pedraza MD [address] [facility] [id number] [place], [place] [id number] Pre-procedure lab exam (Primary Dx); Disease of biliary tract, unspecified 01/21/2021 Orders Only Endoscopy: Main [facility] [address] [facility] [address] [place] [address] Social History Date Tobacco Use [...] filedocumented as of this encounter Results * PROTIME INR (PT) (01/21/2021 11:52 AM CDT) INR 1.0 0.8 - 1.2 MAIN LAB Specimen Blood Performing Organization Address City/State/ZIP Code P jacinta Number MAIN LAB [address] [place] [address] * COMPREHENSIVE METABOLIC PANEL (01/21/2021 11:52 AM [...] >60 >60 mL/min [facility] Comment: [place] The eGFR is not validated f or use in drug dosing adjustments. Continue to use estimated creatinine clearance per dosing reference text. Please contact the Clinical Pharmacist for questions. eGFR >60 >60 mL/min [facility] [place] Comment: The eGFR is not validated for use in drug dosing adjustments. Continue to use estimated creatinine clearance per dosing reference text. Please contact the Clinical Pharmacist for questions. Specimen Blood Performing Organization Address City/State/ZIP Code P jacinta Number [facility] [address] [place] [address] * CBC (01/21/2021 11:52 AM CDT) Pathologist [facility] White Blood 7.6 4.5 - 11.0 K/UL [...] MAIN LAB MPV 8.4 7 - 11 [facility] MAIN LAB Specimen Blood Performing Organization Address City/State/ZIP Code P jacinta Number MAIN LAB [address] [place] [address] documented in this encounter Visit Diagnoses Diagnosis Pre-procedure lab exam - Primary Pre-procedural laboratory examination Disease of biliary tract, unspecified documented in this encounter Additional Health Concerns Assessment Noted Time A fall risk assessment has been completed for the pat ient 01/21/2021 12:55 PM CDT PHQ-2 Depression Total Score: 2 01/06/2021 9:59 AM CDT documented as of this encounter
--- OUTSIDE RECORDS SUMMARY | 2021-02-07 15:49 | XMS REPORT | Clinical Summary ---
Author Author [facility] Organization [facility] Address Unknown Phone Unavailable Care Team Providers Care Warehouse Delivery Driver Name Role Phone Catherine Silva MD PCP Ira Colunga 5709 Unavailable Marielena Trujillo 7 Liz Layton MD 25 Source Comments Some departments are not documenting in the electronic medical record. If you d o not see the information that you expected, contact Release of Information in [facility] [employer] Information Management department at [phone] for further assistan ce in locating additional records.[facility] Allergies No Known Active Allergies Medications End Date Status Medication Sig Dispensed Refills Start Date Active amLODIPine (NORVASC) 5 mg Take 5 mg by 0 tablet mouth daily. Active aspirin EC 81 mg tablet Take 81 mg by 0 mouth daily. Take with food. Active cyclobenzaprine Take 10 mg by 0 (FLEXERIL) 10 mg tablet mouth at bedtime as needed for Muscle Cramps. Active docosahexaenoic acid/epa Take by 0 (FISH OIL PO) mouth. Active levothyroxine (SYNTHROID) Take 75 mcg 0 75 mcg tablet by mouth daily 30 minutes before breakfast. Active losartan (COZAAR) 50 mg Take 50 mg by 0 tablet mouth daily. Active Multivitamins with Take by 0 Fluoride (MULTI-VITAMIN mouth. PO) Active Problems Not on file Encounters Care Team Description Date Type Specialty Liz Layton MD Liver mass (Primary Dx); Other abnormal tumor markers ; Elevated carcinoembryonic antigen (CEA) 02/02/2021 Office Visit Oncology 02/02/2021 Travel Michele Pedraza MD Encounter for pancreatic duct stent exch mateus (Primary Dx); Encounter for screening laboratory testing for COVID-19 virus in asymptomatic patient; Disease of biliary tract, unspecified 01/27/2021 Prep for Case Gastroenterology Liz Layton MD Liver mass (Primary Dx); Other abnormal tumor markers 01/27/2021 Orders Only Oncology Liz Layton MD Appointment 01/25/2021 Telephone Oncology Liz Layton MD Appointment 01/25/2021 Telephone Oncology Liz Layton MD Appointment 01/25/2021 Telephone Oncology Liz Layton MD Appointment 01/25/2021 Telephone Oncology Dudley Hampton MD 01/21/2021 Anesthesia Gastroenterology Event Michele Pedraza MD ENDOSCOPIC RETROGRADE CHOLANGIOPANCREATO GRAPHY 01/21/2021 Surgery Gastroenterology Michele Pedraza MD 01/21/2021 Hospital Radiology Encounter Michele Pedraza MD Liver mass 01/21/2021 Hospital Gastroenterology Encounter Michele Pedraza MD 01/21/2021 Hospital Lab Encounter Michele Pedraza MD Pre-procedure lab exam (Primary Dx); Disease of biliary tract, unspecified 01/21/2021 Orders Only Gastroenterology 01/21/2021 Travel Liz Layton MD 01/06/2021 Hospital Oncology Encounter Liz Layton MD Liver mass (Primary Dx); Other abnormal tumor markers 01/06/2021 Office Visit Oncology Mendy Edwards APRN-STORE ASSISTANT Liver mass (Primary Dx) 01/06/2021 Prep for Case Gastroenterology Liz Layton MD Liver mass (Primary Dx); Other abnormal tumor markers 01/06/2021 Orders Only Oncology 01/06/2021 Travel 01/01/2021 Hospital Radiology Encounter Liz Layton MD Navigation Assessment 12/30/2020 Telephone Oncology 12/23/2020 Hospital Radiology Encounter from Last 3 Months Immunizations Name Administration Dates Next Due Surgical History Surgery Date Site/Laterality Comments ESOPHAGOSCOPY 01/21/2021 N/A ESOPHAGOSCOPY W ITH ENDOSCOPIC ULTRASOUND EXAMINATION - FLEXIBLE performed by Michele Shaffer MD at [facility] Medical devices from this surgery are i n the Implants section. ERCP 01/21/2021 N/A ENDOSCOPIC RETR OGRADE CHOLANGIOPANCREATOGRAPHY WITH SPHINCTEROTOMY/ PAPILLOTOMY perfor med by Michele Pedraza MD at [facility] Medical devices from this surgery are i n the Implants section. ERCP 01/21/2021 N/A ENDOSCOPIC RETR OGRADE CHOLANGIOPANCREATOGRAPHY WITH PLACEMENT ENDOSCOPIC STENT INTO BI LIARY/ PANCREATIC DUCT - EACH STENT performed by Michele Pedraza MD at [facility] Medical devices from this surgery are i n the Implants section. Medical History Medical History Date Comments Acquired hypothyroidism Vision decreased Back pain Family History Medical History Relation Name Comments Heart Disease Father Heart Disease Mother Cancer-Breast Paternal Aunt Relation Name Status Comments Father Mother Paternal Aunt Social History Date Tobacco Use Types Packs/Day [...] or suspected to have Coronavirus / COVID-19? Last Filed Vital Signs Reading Time Taken [...] 02/02/2021 8:40 AM CDT Body Mass Index Plan of Treatment Health Maintenance Due Date Last Done Comments MEDICARE ANNUAL WELLNESS 1935 VISIT DTAP/TDAP VACCINES (1 - 1954 Tdap) PHYSICAL (COMPREHENSIVE) 1954 EXAM SHINGLES RECOMBINANT 1986 VACCINE (1 of 2) OSTEOPOROSIS 2001 SCREENING/MONITORING PNEUMONIA (PPSV23) 2001 VACCINE (1 of 1 - PPSV23) INFLUENZA VACCINE 02/26/2021 03/18/2019, 02/19/2018, 03/09/2017 COVID-19 VACCINE Completed 08/13/2020, 07/16/2020 Implants Device Identifier Shelf Expiration Date Model / Serial / L ot Implanted Type Area Manufactur er 10/30/2023 [id number] / EO / [id number] Stent Biliary 10fr 5cm Gentle Curve [employer] Tapered Tip Soft - [employer] MEDICAL Implanted: Qty: 1 on 01/21/2021 by Michele Poe MD at [facility] Procedures Comments Procedure Name Priority Date/Time Associated Diag nosis HC ALPHA FETO PROTEIN, Routine 02/02/2021 Liver m ass SERUM 8:12 AM CDT Other abnormal tumo r markers HC CA 19-9 Routine 02/02/2021 Liver mass 8:12 AM CDT Other abnormal tumor markers HC CBC W/ AUTOMATED DIFF Routine 02/02/2021 Liver mass 8:12 AM CDT HC CEA(CARCINOEMBRYONIC Routine 02/02/2021 Liver mass AG) 8:12 AM CDT Other abnormal tumo r markers HC COMPREHENSIVE Routine 02/02/2021 Liver mass METABOLIC PANEL 8:12 AM CDT GI ENDO CATH ETHEL & PANC Routine [...] end oscopy - spoke to patient. SS CBC,AUTOMATED Routine 01/21/2021 Pre-procedure lab exam 11:52 AM CDT Disease of biliary tract, unspecified HC COMPREHENSIVE Routine 01/21/2021 Pre-procedure lab exam METABOLIC PANEL 11:52 AM CDT HC PT(INR) Routine 01/21/2021 Pre-procedure l ab exam 11:52 AM CDT Disease of biliary tract, unspecified HC NON-FLAT SURFACER JEWEL/THIN PREP 01/21/2021 10:04 AM CDT TELEMETRY STRIPS-SCAN 01/21/2021 12:00 AM CDT HC ALPHA FETO PROTEIN, Routine 01/06/2021 Liver m ass SERUM 11:06 AM CDT Other abnormal tumo r markers HC CEA(CARCINOEMBRYONIC Routine 01/06/2021 Liver mass AG) 11:06 AM CDT Other abnormal tumo r markers HC CA 19-9 Routine 01/06/2021 Liver mass 11:06 AM CDT Other abnormal tumor markers HC PT(INR) Routine 01/06/2021 Liver mass 11:06 AM CDT HC CBC W [facility]FF [facility] Rout[facility] 01/06/2021 Liver ma ss 11:06 AM CDT HC CHEM 12 [facility] Rout[facility] 01/06/2021 Liver mass 11:06 AM CDT MRI ABDOMEN EXTERNAL Routine 01/01/2021 IMAGING 12:[address] ABD/PEL EXTERNAL Routine 12/23/2020 IMAGING 12:00 AM CDT from Last 3 Months Results * CA19.9 (02/02/2021 8:12 AM CDT) Only the most recent of 2 results within the time period is included. CA 19-9 574 (H) <35 U/ml [facility] Specimen Blood Performing Organization Address City/[facility]/ZIP Code P jacinta Number [facility] [address] [place] [address] * ALPHA FETO PROTEIN (AFP) (02/02/2021 8:12 AM CDT) Only the most recent of 2 results within the time period is included. Alpha Feto 3.0 0.0 - 15.0 NG/ML [facility] Protein Specimen Blood Performing Organization Address City/[facility]/ZIP Code P jacinta Number [facility] [address] [place] [address] * CBC AND DIFF (02/02/2021 8:12 AM CDT) Only the most recent of 2 results within the time period is included. Pathologist [facility] White Blood 7.3 4.5 - 11.0 K/UL [facility] Cells RBC 4.28 4.0 - 5.0 [...] Code P jacinta Number [facility] [address] [place] [address] * CEA(CARCINOEMBRYONIC AG) (02/02/2021 8:12 AM CDT) Only the most recent of 2 results within the time period is included. Pathologist [facility] CEA 1.5 <3.0 NG/ML [facility] Specimen Blood Performing Organization Address City/State/ZIP Code P jacinta Number [facility] [address] [place] [address] * COMPREHENSIVE METABOLIC PANEL (02/02/2021 8:12 AM CDT) Only the most recent of 3 results within the time period is included. Pathologist [facility] Sodium 138 137 - 147 MMOL/L [facility] Potassium 4.0 3.5 - 5.1 MMOL/L [...] Non >60 >60 mL/min [facility] Comment: [employer] The eGFR is not validated f or use in drug dosing adjustments. Continue to use estimated creatinine clearance per dosing reference text. Please contact the Clinical Pharmacist for questions. eGFR >60 >60 mL/min [facility] [employer] Comment: The eGFR is not validated for use in drug dosing adjustments. Continue to use estimated creatinine clearance per dosing reference text. Please contact the Clinical Pharmacist for questions. Specimen Blood Performing Organization Address City/State/ZIP Code P jacinta Number [facility] [address] [place] [address] * GI ENDO CATH ETHEL & PANC DUCT (01/21/2021 3:20 PM CDT) Specimen Narrative Performed At This order has been auto finalized and does not conta in a result. [facility]ERS Performing Organization Address City/State/ZIP Code P jacinta Number [facility] * CHROMOSOMES FISH DNA PROBE (01/21/2021 2:49 PM CDT) Chromosomes Cytogenetics Report Available [facility] Fish DNA Probe in Epic Specimen Tissue - Small Bowel Narrative Performed At This result has an attachment that is n ot available. Performing Organization Address City/State/ZIP Code P jacinta Number [facility] [address] [place] [address] * ERCP (01/21/2021 2:08 PM CDT) Provation Patient Name: Rodriguez NICHOLSON OTHER Report Leigha RESULTS Procedure Date: 01/21/2021 2:08 PM [facility]: [id number] Date of : 1935 Gender: Female Attending Physician: Michele Pedraza MD Procedure: ERCP Indications: Elevated liver enzymes, patient with liver mass on MRI and elevated CA19-9 >400 Providers: Michele Pedraza MD (Doctor), Dez Cunningham (Fellow), Bernice Sawyer (Nurse), Brock Membreno Plywood Stock Grader ([employer] Stock Grader) Referring Physician: Liz Layton Medications: General Anesthesia [...] verified by the physician, the nurse, the mobile lounge driver and the nuclear monitoring technician in the endoscopy suite. Mental Status [...] and instead elected to place a 10 Armenian/7 cm straight plastic biliary stent into the [...] and instead elected to place a 10 Armenian/7 cm straight plastic biliary stent into the [...] 9 seconds Procedure Code(s): --- Professional --- 07062, Endoscopic retrograde cholangiopancreatography (ERCP); with placement of endoscopic stent into biliary or pancreatic duct, including pre- and post-dilation and guide wire passage, when performed, including sphincterotomy, when performed, each stent 02592, Endoscopic catheterization of the biliary ductal system, radiological supervision and interpretation Diagnosis Code(s): --- Professional --- R74.8, Abnormal levels of other serum enzymes CPT copyright 2020 [employer]. All rights reserved. The codes documented in this report are preliminary and upon manufacturing plant controller review may be revised to meet current compliance requirements. Attending Participation: I was present and participated during the entire procedure, including non-acosta portions. MD Michele Chi MD 01/21/2021 3:22:06 PM The attending physician has electronically signed and finalized this document. Dez Cunningham, Number of Addenda: 0 Note Initiated On: 01/21/2021 2:08 PM Specimen Performing Organization Address City/State/ZIP Code P jacinta Number [facility] RESULTS * ENDOSCOPIC ULTRASOUND REPORT (01/21/2021 1:41 PM CDT) Provation Patient Name: Rodriguez NICHOLSON OTHER Report Leigha RESULTS Procedure Date: 01/21/2021 1:41 PM [facility]: [id number] Date of : 1935 Gender: Female Attending Physician: Michele Pedraza MD Procedure: Upper EUS Indications: Suspected mass in liver on MRI, Elevated CA 19-9, patient with 2.4 cm right medial/posterior lobe mass on MRI Providers: Michele Pedraza MD (Doctor), Dez Cunningham (Fellow), Bernice Sawyer (Nurse), Brock Membreno Plywood Stock Grader ([employer]wood Stock Grader) Referring Physician: Liz Layton Medications: General Anesthesia [...] verified by the physician, the nurse, the mobile lounge driver and the nuclear monitoring technician in the endoscopy suite. Mental Status [...] 59 seconds Procedure Code(s): --- Professional --- 34487, Esophagogastroduodenoscopy, flexible, transoral; with endoscopic ultrasound examination limited to the esophagus, stomach or duodenum, and adjacent structures Diagnosis Code(s): --- Professional --- R97.8, Other abnormal tumor markers R93.2, Abnormal findings on diagnostic imaging of liver and biliary tract CPT copyright 2020 [employer]. All rights reserved. The codes documented in this report are preliminary and upon manufacturing plant controller review may be revised to meet current compliance requirements. Attending Participation: I was present and participated during the entire procedure, including non-acosta portions. MD Michele Chi MD 01/21/2021 3:22:22 PM The attending physician has electronically signed and finalized this document. Dez Cunningham, Number of Addenda: 0 Note Initiated On: 01/21/2021 1:41 PM Specimen Performing Organization Address City/State/ZIP Code P jacinta Number [facility] RESULTS * PROTIME INR (PT) (01/21/2021 11:52 AM CDT) Only the most recent of 2 results within the time period is included. INR 1.0 0.8 - 1.2 [facility] Specimen Blood Performing Organization Address City/[facility]/ZIP Code P jacinta Number [facility] [address] [place] [address] * CBC (01/21/2021 11:52 AM CDT) White [...] Platelet Count 239 150 - 400 K/UL [facility] MPV 8.4 7 - 11 FL [facility] Specimen Blood Performing Organization Address City/State/ZIP Code P jacinta Number [facility] [address] [place] [address] * NON-FLAT SURFACER JEWEL CYTOLOGY (BODY FLUIDS/TISSUE) (01/21/2021 10:04 AM CDT) Cytology [facility] [email or web address] Department of Pathology and Laboratory Medicine [address] [place] [address] Surgical Pathology Office: [phone] CYTOLOGY REPORT NAME: LEIGHA FRIAS CYTOLOGY #: [id number] MR #: [id number] ALT ID #: BILLING #: [id number] LOCATION: [facility] DATE OF PROCEDURE: 01/21/2021 AGE: 85 SEX: [...] P jacinta Number [facility] [address] [place] [address] * TELEMETRY STRIPS-SCAN (01/21/2021 12:00 AM CDT) Narrative Performed At This result has an attachment that is n ot available. Ordered by an unspecified provider. * MRI ABDOMEN EXTERNAL IMAGING (01/01/2021 12:00 AM CDT) Specimen Narrative Performed At This order has been auto finalized and does not contain a result. * CT ABD/PEL EXTERNAL IMAGING (12/23/2020 12:00 AM CDT) Specimen Narrative Performed At This order has been auto finalized and does not contain a result. from Last 3 Months Insurance Type Payer Benefit Subscriber ID Effective Phone Address Plan / Dates Group Medicare MEDICARE MEDICARE [id number] 2001-P PART A AND resent B Medicare CIGNA CIGNA [id number] 2019-P MEDICARE resent SUPPLEMENT Advance Directives Patient Toe Stapler Explanation Type Date Recorded Advance Directive/DPOA Advance Directives 07/25/2011 12:00 AM and Living Will
--- OUTSIDE RECORDS SUMMARY | 2021-02-07 15:50 | XMS REPORT | Continuity of Care Document ---
Author Author [facility] Address [address] [place] [address] Phone Care Team Providers Care Flight Control Specialist Name Role Phone Joshua Silva PCP Joshua Silva Attphys Allergies, Adverse Reactions, Alerts Allergen Type Severity Reaction Last Updated Verified Status codeine Adverse Reaction Moderate "Sometimes Codeine causes nausea" Jennifer 2020 1:33pm Yes Active donepezil Adverse Reaction Gastrointestinal Upset November 25 1:33pm Yes Active lisinopril Adverse Reaction Cough November 25, 2020 1:33pm Yes Active Sulfa (Sulfonamide Antibiotics) Adve rse Reaction "Made pt. ill" November 252020 1:33pm Yes Active Medications Medication Status Dose Units Route Directions Qty Days Start Date End Date Instructions Ascorbic Acid (Vitamin C) Active 500 MG PO Daily January 02, 2020 4:26pm Cyclobenzaprine Active 10 MG PO Three Times a Day January 02, 2020 4:27pm Cholecalciferol (Vitamin D3) Active 125 MCG PO Daily January 02, 2020 4:27pm [place]-3 Fatty Acids Active 1000 MG PO 2 Times Per Week January 02, 2020 4:2 7pm Diphenhydramine-Zinc Acetate Active 1 APPLIC TOPICAL Daily January 02, 2020 4:2 8pm CAM Walker Active 0 .ROUTE .MEDSUPPLY September 30, 2020 12:21pm As directed DX M66.871 ASO Ankle Brace Active 0 .ROUTE .MEDSUPPLY October 28, 2020 2:05pm As directed DX: M76.829 Vit A,C And V-Gpcugz-Lfdarqfq Active 1 TAB PO Daily November 03, 2018 9:30am Cyanocobalamin (Vitamin B-12) Active 1000 MCG PO Daily November 03, 2018 9:30a m Vitamin E Active 400 UNIT PO Daily January 29, 2020 12:53pm Lutein Active 40 MG PO Daily January 29, 2020 12:53pm Levothyroxine Active 75 MCG PO Daily November 09, 2017 10:41am Losartan Active 50 MG PO Daily December 14, 2020 11:38am Amlodipine Active 5 MG PO Daily December 14, 2020 11:40am Problems Active Problems Medical Problem Onset Date Status EMI (generalized anxiety disorder) Active Acute leg pain Active Essential hypertension Active HLD (hyperlipidemia) A ctive Hypothyroidism Active Posterior tibialis tendon insufficiency Active Abdominal pain Active Inactive/Resolved Problems Medical Problem Onset Date Status Fever of undetermined origin Resolved Tick bite Resolved Hypophosphatemia Resol kiersten Bandemia Resolved Spider bite Resolved Chest pain Resolved Hypokalemia Resolved Procedures Procedure Date Performed Status CT abdomen pelvis w con December 23 11:44am completed Relevant Diagnostic Tests and/or Laboratory Data Laboratory Results Test Date/Time Result Interpretation Reference Range Result Comment Performing Site Creatinine December 23, 2020 11:52am 0.84 mg/dL 0.60-1.30 [place] [address] [place] [address] Glomerular Filtration Rate Calc December 23, 2020 11:52am > 60 mL/Min The GFR is not validated for use in drug dosing adjustments.Continue to use estimated creatinine clearance per dosingreference text.Chronic Kidney Disease is defined as either kidney damage ora GFR less than 60 ml/min that persists for at least 3months. Stage 3 = 30-59 ml/min Stage 4 = 15-29 ml/min Stage 5 = <15 ml/min [facility], [address] [place] [id number] Diagnostic Imaging Reports Report Dictated Date/Time Dictated By Status Radiology Report December 23, 2020 1:57pm Frantz Hess completed [facility] [address] [place] [id number] CT Scan Report Signed Patient: Pearl Frias MR#: [id number] : 1935 Acct:[id number] Age/Sex: 85 / F ADM Date: 12/23/20 Loc: RAD Attending Provider: Catherine Silva Ordering Provider: Catherine Silva Date of Service: 12/23/20 Procedure(s): CT abdomen pelvis w con Accession Number(s): [id number] EXAM: CT Abdomen and Pelvis with IV contrast INDICATION: Right upper quadrant pain, prior appendectomy TECHNIQUE: Multi-detector row CT images were acquired from the lung bases through the abdomen and pelvis with the use of IV contrast. Sagittal and coronal images were acquired from the transaxial data. All CT scans performed at this facility utilize dose optimization techniques as appropriate to the exam, including the following: Automated exposure control and adjustment of the mA and/or KV according to patient size (this includes techniques or standardized protocols for targeted exams where dose is matched to the indication/reason for exam). IV CONTRAST: 95 cc of Isovue-300 ORAL CONTRAST: Administered DLP: 32.1 mGycm COMPARISON: 20 March 2018 FINDINGS: Dependent atelectasis lung bases. Calcifications within the liver. There is minimal dilatation of the intrahepatic biliary ductal system within right hepatic lobe as well as the caudate lobe. There is a faint ill-defined low-attenuation focus noted medially within the right hepatic lobe measuring 2.4 x 2.4 cm. Findings is suspicious for malignancy. 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 There is a low-attenuation focus within the medial aspect of the spleen measuring 3.7 x 2.9 cm that is increased in size since prior exam were measured 1.7 x 1.5 cm. This has mean attenuation within simple fluid range. Adrenal glands are unremarkable. Both kidneys are unremarkable. Pancreas is unremarkable. Gallbladder is contracted. No biliary ductal dilatation. Portal venous system is opacified. Small hiatal hernia. Incomplete distention and opacification of the stomach which limits evaluation. Vascular calcifications. Calcified plaque at the origin of the SMA and celiac artery as well as the right renal artery. There small lymph nodes within retroperitoneum, pelvis and inguinal regions. Bladder is under opacified and incompletely distended. No bladder abnormality. Uterus is identified. No free fluid. No free air. No bowel obstruction. Rectum is distended and stool-filled. Evaluation of the rectum colon is limited. Extensive colonic diverticulosis. No CT evidence for acute diverticulitis. The appendix is surgically absent. Small bowel is unremarkable. Bowel mesentery is unremarkable. Small fat containing ventral hernia at the umbilicus. Osseous structures are intact. Degenerative changes in the vertebral column most severe at the L5-S1 level. IMPRESSION: 1. Vague low-attenuation focus identified within the posterior and medial aspect of the right hepatic lobe, centered on image 24 measuring 2.4 x 2.4 cm, suspicious for malignancy. There is associated dilatation of the phrenic biliary ductal system in the adjacent portions of posterior right hepatic lobe and right caudate lobe. This mass encases the proximal aspect of the right main portal vein causing luminal narrowing 2. Enlarging splenic cystic focus measuring 3.7 x 2.9 cm Report called to Dr. Ilya Silva at the time of Dictation Dictated By: Frantz Hess Signed By: 12/23/20 1357 DD/ 1357 TD/TT: Hrbp: STEPH cc: Catherine Silva~ Health Concerns Health Concerns may be documented in an alternate section. Advance Directives Advance Directive Response Recorded Date/Time Advance Directive on File? No December 23, 2020 2:26pm Chief Complaint and Reason for Visit Chief Complaint Right upper quadrant pain Encounters Encounter Location(s) Ar rival/Admit Date Discharge/Depart Date Provider(s) Departed Clinical Yosvany [facility] alth-Radiology December 23, 2020 11:41am December 23, 2 021 11:42am Catherine Silva Assessments No Assessments Information Available Family History Relationship Condition A ge at Onset Recorded Date/Time father Cardiac disease U nknown Acute myocardial infarction Unknown mother Arteriosclerosis of coronary artery Unknown Alzheimer's disease Un known Hyperlipidemia Unknown paternal aunt Malignant neoplasm of breast Unknown Functional Status No Functional Status information available Goals Goals may be documented in an alternate section. Immunizations No Immunization Information Available Mental Status No Mental Status Information Available Medical Equipment Implanted Devices Device Date Implanted De vice Details ANGIO SEAL VIP 6F November 13, 2017 ALLAN: Insurance Providers Guarantor Pearl Frias Address [address] [place] [address] Contact Info. Home Phone: Payer Policy Id Coverage Id Subscriber's Name Subscriber Id Effective Date Expiration Date Blue Cross Plan 65 Secondary [id number] Pearl Frias [id number] Blue Cross Blue Shield [id number] Pearl Frias [id number] Cigna [employer] Ins [id number] Pearl Frias [id number] Cigna [id number] Pearl Frias [id number] Medicare [id number] Pearl Skinnerlett [id number] Self Pay Self N/A Social History Smoking Status Status Date of Observation Ex-smoker (finding) December 23, 2020 2:26pm Observation Status Observation Response John e of Response quit date 1995 2:26pm second hand exposure No December 23, 2020 2:26pm alcohol intake occasionally November 09, 2017 10:44am housing house December 23, 2020 2:26pm household members spouse December 23, 2020 2:26pm service No December 23, 2020 2:26pm current occupational status retired December 23, 2020 2:26pm current occupational exposures/hazards No December 23, 2020 2:26pm 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
--- OUTSIDE RECORDS SUMMARY | 2021-02-07 15:50 | XMS REPORT | Continuity of Care Document ---
Author Author [facility] Address [address] [place] [address] Phone Care Team Providers Care Locomotive Engineer Electric Name Role Phone Joshua Silva PCP Joshua Silva Attphys Allergies, Adverse Reactions, Alerts Allergen Type Severity Reaction Last Updated Verified Status codeine Adverse Reaction Moderate "Sometimes Codeine causes nausea" Au 2020 2:19pm Yes Active donepezil Adverse Reaction Gastrointestinal Upset December 29, 2 021 2:19pm Yes Active lisinopril Adverse Reaction Cough December 29, 2020 2:19pm Yes Active Sulfa (Sulfonamide Antibiotics) Adve rse Reaction "Made pt. ill" December 29, 2020 2:19pm Yes Active Medications Medication Status Dose Units Route Directions Qty Days Start Date End Date Instructions Ascorbic Acid (Vitamin C) Active 500 MG PO Daily January 02, 2020 4:26pm Cyclobenzaprine Active 10 MG PO Three Times a Day January 02, 2020 4:27pm Cholecalciferol (Vitamin D3) Active 125 MCG PO Daily January 02, 2020 4:27pm [place]-3 Fatty Acids Active 1000 MG PO 2 Times Per Week January 02, 2020 4:2 7pm Aspirin Active 81 MG PO daily December 29, 2020 2:20pm Duloxetine Active 30 MG PO daily December 29, 2020 2:24pm Cholecalciferol (Vitamin D3) Active 125 MCG PO daily December 29, 2020 2:24pm CAM Walker Active 0 .ROUTE .MEDSUPPLY September 30, 2020 12:21pm As directed DX M66.871 ASO Ankle Brace Active 0 .ROUTE .MEDSUPPLY October 28, 2020 2:05pm As directed DX: M76.829 Vit A,C And Z-Kpyzcy-Jdoleiap Active 1 TAB PO Daily November 03, [...] Hypokalemia Resolved Procedures Procedure Date Performed Status MR abdomen wo/w con January 01, 2021 1:30p m completed Relevant Diagnostic Tests and/or Laboratory Data Diagnostic Imaging Reports Report Dictated Date/Time Dictated By Status Radiology Report January 01, 2021 5:03pm Frantz Hess completed [facility] [address] [place] [address] Magnetic Resonance Report Signed Patient: Pearl Frias MR#: [id number] : 1935 Acct:[id number] Age/Sex: 85 / F ADM Date: 01/01/21 Loc: RAD Attending Provider: Catherine Silva Ordering Provider: Catherine Silva Date of Service: 01/01/21 Procedure(s): MR abdomen wo/w con Accession Number(s): [id number] EXAM: MRI Abdomen with and without IV contrast INDICATION: Hepatomegaly, not elsewhere classified, abnormal CT of the liver TECHNIQUE: Multiplanar, multisequence MRI of the abdomen with and without IV contrast. IV CONTRAST: 10 mL ProHance COMPARISON: 23 December 2020 FINDINGS: Study is degraded by motion artifact. LIVER: Again identified are dilated intrahepatic biliary ducts within the posterior aspect the right hepatic lobe as well as adjacent aspect of the caudate lobe focal segmental narrowing of the proximal right main portal vein better appreciated on prior CT... On dynamic postcontrast images there is a there is a suggestion of increasing enhancement within the posterior aspect the right hepatic lobe in the area of the dilated ducts extending centrally without a discrete border forming mass. Findings suspicious for infiltrative neoplastic process. BILIARY SYSTEM: Gallbladder is unremarkable. Bile ducts are not dilated. PANCREAS: Unremarkable. SPLEEN: Nonenhancing cystic focus demonstrating decreased T1 increased T2 signal within the spleen measuring 3.6 by 2.6 cm. ADRENALS: Unremarkable. KIDNEYS: Unremarkable. GASTROINTESTINAL: The stomach and visualized bowel are unremarkable. MESENTERY/PERITONEUM/RETROPERITONEUM: Unremarkable. VASCULAR: Unremarkable. LYMPH NODES: No adenopathy. OSSEOUS & SOFT TISSUES: Unremarkable. IMPRESSION: 1. Dilated intrahepatic biliary ductal system is within posterior aspect right hepatic lobe and adjacent caudate lobe again identified. Severe narrowing of the proximal aspect of the right main portal vein is again identified, better visualized on CT. 2. On dynamic postcontrast images there is increasing parenchymal enhancement in the right hepatic lobe in the region of ductal dilatation. Underlying neoplastic process is suspected 3. Splenic cyst Dictated By: Frantz Hess Signed By: 01/01/211702 DD/ 02 TD/TT: Patients Transporter: STEPH cc: Catherine Silva~ Health Concerns Health Concerns may be documented in an alternate section. Advance Directives Advance Directive Response Recorded Date/Time Advance Directive on File? No December 23, 2020 2:26pm Chief Complaint and Reason for Visit Chief Complaint Hepatomegaly, not el sewhere classified Encounters Encounter Location(s) Ar rival/Admit Date Discharge/Depart Date Provider(s) Departed Clinical [facility] alth-Radiology January 01, 2021 1:29pm January 01, 2021 1:30pm Catherine Silva Assessments No Assessments Information Available [...] 13, 2017 ALLAN: Insurance Providers Guarantor Pearl Davis Frias Address [address] [place] [address] Contact Info. 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
--- OUTSIDE RECORDS SUMMARY | 2021-02-07 15:50 | XMS REPORT | Encounter Summary ---
Author Author [facility] Organization [facility] Address Unknown Phone Unavailable Care Team Providers Care Chrome Tanner Name Role Phone No Pcp, Na PCP Unavailable Reason for Referral * Consult, Test & Treat (Urgent) Referred By Contact Referred To Contact Status Reason Specialty Diagnoses / Procedures Liz Layton MD [address] [place] [address] Eugene Pedraza MD [id number] [place] [address] Closed Specialty Services Diagnoses Required Liver mass Scheduling Instructions Patient moving 01/18-01/20. If possible, schedule before. Answer Question ERCP, Upper EUS GI Procedure Comments WITH BIOPSY Electronically signed by Liz Layton MD at Reason for Visit * Reason Comments New CA Pt * Consult, Test & Treat (Routine) Referred By Contact Referred To Contact Status Reason Specialty Diagnoses / Procedures Catherine Silva MD [address] [facility] [address] [place] [address] New Request Encounter Details Care Team Description Date Type Department Liz Layton MD [address] [place] [address] Liver mass (Primary Dx); Other abnormal tumor markers 01/06/2021 Office Visit Oncology: [facility] [address] [facility] [place] [address] Social History Date Tobacco Use Types Packs/Day [...] Signs Reading Time Taken Comments Vital Sign 127/66 01/06/2021 10:03 AM CDT Blood Pressure 65 01/06/2021 10:03 AM CDT Pulse 36.8 C (98.3 F) 01/06/2021 10:03 AM CDT Temperature 14 01/06/2021 10:03 AM CDT Respiratory Rate 98% 01/06/2021 10:03 AM CDT Oxygen Saturation - - Inhaled Oxygen Concentration 91.3 kg (201 lb 4.5 oz) 01/06/2021 10:03 AM CDT Weight - - Height 33.49 07/25/2011 3:04 PM [employer]LECTRON[employer] TE[employer] Body Mass Index documented in this encounter Patient Instructions * Patient Instructions* Miesha Turner RN - 01/06/2021 10:00 AM CDT Nurse: NELLY Mcmanus, RN Available Monday-Monday 8:00am - 4:00pm On-call number for urgent needs outside of business hours: [phone] Ask for the on-call Oncology fellow to be paged and they will call you back. Medication refills: please contact your pharmacy for medication refills, if they do not have any refills on file they will contact the office. Make sure they quevedo ve our correct contact information on file. P: [phone], F: [phone] MyChart Messages: All H5 messages are answered by the nurses, even [...] Progress Notes * Liz Layton MD - 01/06/2021 10:00 AM CDT Images from the original note were not included. Name: Leigha Frias : 1935 AGE: 85 y.o. DATE OF SERVICE: 01/06/2021 Subjective: Reason for Visit: New CA Pt Leigha Frias is a 85 y.o. female. [...] since 08/2020; some mild to moderate fatigue. Review of Systems Constitutional: Negative. HENT: Negative. [...] she lost her who was in the [place] 7[place]9 [place]. She is now living with her daughter and in the wi d of moving , which stresses her out as well. No family history of cancer Objective: No current outpatient medications on file. There were no vitals filed for this [...] for LEIGHA FRIAS ( ) as of 01/06/2021 09:52 Ref. Range 11/22/2004 03:30 Hemoglobin Latest Ref Range: 12.0 - 15.0 GM/DL 13.5 Hematocrit Latest Ref Range: 36 - 45 % 39.8 Platelet Count Latest Ref Range: 150 - 400 K/UL 267 White Blood Cells Latest Ref Range: 4.5 - 11.0 K/UL 7.80 Neutrophils Latest Ref Range: 41 - 77 % 68 Absolute Neutrophil Count Latest Ref Range: 1.8 - 7.0 K/UL 5.27 Lymphocytes Latest Ref Range: 24 - 44 % 24 Absolute Lymph Count Latest Ref Range: 1.0 - 4.8 K/UL 1.89 Monocytes Latest Ref Range: 4 - 12 % 5 Absolute Monocyte Count Latest Ref Range: 0 - 0.80 K/UL 0.41 Eosinophils Latest Ref Range: 0 - 5 % 2 Absolute Eosinophil Count Latest Ref Range: 0 - 0.45 K/UL 0.17 Absolute Basophil Count Latest Ref Range: 0 - 0.20 K/UL 0.05 Basophils Latest Ref Range: 0 - 2 % 1 RBC Latest Ref Range: 4.0 - 5.0 M/UL 4.30 MCV Latest Ref Range: 80 - 100 FL 92.0 MCH Latest Ref Range: 26 - 34 PG 31.0 MCHC Latest Ref Range: 32.0 - 36.0 G/DL 34.0 MPV Latest Ref Range: 7 - 11 FL 10.0 RDW Latest Ref Range: 11 - 15 % 14.1 Protime Latest Ref Range: 10.0 - 13.5 SECS 12.1 INR Unknown 1.1 APTT Latest Ref Range: 22 - 35 SECS CHECKED Sodium Latest Ref Range: 137 - 147 MMOL/L 135 (L) Potassium Latest Ref Range: 3.5 - 5.1 MMOL/L 3.5 Chloride Latest Ref Range: 98 - 110 MMOL/L 105 CO2 Latest Ref Range: 21 - 30 MMOL/L 23 Anion Gap Latest Ref Range: 8 - 12 7 (L) Blood Urea Nitrogen Latest Ref Range: 8 - 20 MG/DL 15 Creatinine Latest Ref Range: 0.5 - 1.2 MG/DL 0.9 Glucose Latest Ref Range: 70 - 110 MG/DL 94 Calcium Latest Ref Range: 9.0 - 11.0 MG/DL 9.0 Magnesium Latest Ref Range: 1.6 - 2.6 MG/DL 2.2 Phosphorus Latest Ref Range: 2.0 - 4.0 MG/DL 3.7 Hemoglobin A1C Latest Ref Range: 4.7 - 6.2 % For non-diabetic ... Assessment and Plan: 85 yr old female [...] lobe.' Normal function of liver and kidney Clinic doing reasonable well. A long discussion with the pt and her daughter regarding her images finding, cli dorothy presentation and further work-up. They understand that there is suspicious o f mass (lesion) in the liver, and possible from biliary system; however, we have no tissue diagnose. Based on the location of th lesion, We would recommend to h ave ERCP and EUS assessment, and hope to have cytological diagnosis. We will als o have lab today and including CA19-9, AFP and CEA. They understand that without further verification, there won't be treatment recommendation. -- lab: CBC, CMP, CA19-9, AFP, CEA -- GI for ERCP, and EUS -- supportive care and symptomatic managemen documented in this encounter Plan of Treatment Order Schedule Name Type Priority Associated Diag noses Ordered: 01/06/2021 AMB REFERRAL TO GI LAB Outpatient Routine Liver m ass FOR PROCEDURE Referral documented as of this encounter Procedures Comments Procedure Name Priority Date/Time Associated Diag nosis HC CA 19-9 Routine 01/06/2021 Liver mass 11:06 AM CDT Other abnormal tumor markers HC ALPHA FETO PROTEIN, Routine 01/06/2021 Liver m ass SERUM 11:06 AM CDT Other abnormal tumo r markers HC PT(INR) Routine 01/06/2021 Liver mass 11:06 AM CDT HC CBC W DIFF [facility] Routine 01/06/2021 Liver ma ss 11:06 AM CDT HC CEA(CARCINOEMBRYONIC Routine 01/06/2021 Liver mass AG) 11:06 AM CDT Other abnormal tumo r markers HC CHEM 12 [facility] Routine 01/06/2021 Liver mass 11:06 AM CDT documented in this encounter Results * ALPHA FETO PROTEIN (AFP) (01/06/2021 11:06 AM CDT) Alpha Feto 3.5 0.0 - 15.0 NG/ML [facility] Protein Specimen Blood Performing Organization Address City/[facility]/ZIP Code P jacinta Number [facility] [address] [place] [address] * CEA(CARCINOEMBRYONIC AG) (01/06/2021 11:06 AM CDT) CEA 1.7 <3.0 NG/ML [facility] Specimen Blood Performing Organization Address City/[facility]/ZIP Code P jacinta Number [facility] [address] [place] [address] * CA19.9 (01/06/2021 11:06 AM CDT) CA 19-9 419 (H) <35 U/ml [facility] Specimen Blood Performing Organization Address City/State/ZIP Code P jacinta Number [facility] [address] [place] [address] * PROTIME INR (PT) (01/06/2021 11:06 AM CDT) INR 1.0 0.8 - 1.2 [facility] Specimen Blood Performing Organization Address City/[facility] P jacinta Number [facility] [address] [place] [address] * CBC AND DIFF (01/06/2021 11:06 AM CDT) White Blood 7.4 4.5 - 11.0 K/UL [facility] Cells RBC 4.62 4.0 - 5.0 M/UL [facility] Hemoglobin 14.4 12.0 - 15.0 GM/DL [facility] Hematocrit 43.0 36 - 45 % [facility] MCV 93.1 80 - 100 FL [facility] MCH 31.2 26 - 34 PG [facility] MCHC 33.5 32.0 - 36.0 G/DL [facility] RDW 13.9 11 - 15 % [facility] Platelet Count 231 150 - 400 K/UL [facility] MPV 8.2 7 - 11 FL [facility] Neutrophils 62 41 - 77 % [facility] Lymphocytes 27 24 - 44 % [facility] Monocytes 6 4 - 12 % [facility] Eosinophils 3 0 - 5 % [facility] Basophils 2 0 - 2 % [facility] Absolute 4.70 1.8 - 7.0 K/UL [facility] Neutrophil Count Absolute Lymph 2.00 1.0 - 4.8 K/UL [facility] Count Absolute 0.40 0 - 0.80 K/UL [facility] Monocyte Count Absolute 0.20 0 - 0.45 K/UL [facility] Eosinophil Count Absolute 0.10 0 - 0.20 K/UL [facility] Basophil Count Specimen Blood Performing Organization Address City/[facility]/ZIP Code P jacinta Number [facility] [address] [place] [address] * COMPREHENSIVE METABOLIC PANEL (01/06/2021 11:06 AM CDT) Sodium 137 137 - 147 MMOL/L [facility] Potassium 4.2 3.5 - 5.1 MMOL/L [facility] Chloride 104 98 - 110 MMOL/L [facility] Glucose 90 70 - 100 MG/DL [facility] Blood Urea 16 7 - 25 MG/DL [facility] Nitrogen Creatinine 0.76 0.4 - 1.00 MG/DL [facility] Calcium 9.5 8.5 - 10.6 MG/DL [facility] Total Protein 7.2 6.0 - 8.0 G/DL [facility] Total Bilirubin 0.7 0.3 - 1.2 MG/DL [facility] Albumin 4.2 3.5 - 5.0 G/DL [facility] Alk Phosphatase 140 (H) 25 - 110 U/L [facility] AST (SGOT) 21 7 - 40 U/L [facility] CO2 25 21 - 30 MMOL/L [facility] ALT (SGPT) 23 7 - 56 U/L [facility] Anion Gap 8 3 - 12 [facility] eGFR Non >60 >60 mL/min [facility] Comment: Armenian The eGFR is not validated f or use in drug dosing adjustments. Continue to use estimated creatinine clearance per dosing reference text. Please contact the Clinical Pharmacist for questions. eGFR >60 >60 mL/min [facility] Comment: The eGFR is not validated for use in drug dosing adjustments. Continue to use estimated creatinine clearance per dosing reference text. Please contact the Clinical Pharmacist for questions. Specimen Blood Performing Organization Address City/State/ZIP Code P jacinta Number [facility] [address] [place] [address] documented in this encounter Visit Diagnoses Diagnosis Liver mass - Primary Unspecified disorder of liver Other abnormal tumor markers Other abnormal tumor markers documented in this encounter Historical Medications * This list may reflect changes made after this encounter. Start Date End Date Medication Sig Dispensed Refills Multivitamins with Take by 0 Fluoride (MULTI-VITAMIN mouth. PO) losartan (COZAAR) 50 mg Take 50 mg by 0 tablet mouth daily. levothyroxine (SYNTHROID) Take 75 mcg 0 75 mcg tablet by mouth daily 30 minutes before breakfast. docosahexaenoic acid/epa Take by 0 (FISH OIL PO) mouth. cyclobenzaprine Take 10 mg by 0 (FLEXERIL) 10 mg tablet mouth at bedtime as needed for Muscle Cramps. aspirin EC 81 mg tablet Take 81 mg by 0 mouth daily. Take with food. amLODIPine (NORVASC) 5 mg Take 5 mg by 0 tablet mouth daily. added in this encounter Additional Health Concerns Assessment Noted Time PHQ-2 Depression Total Score: 2 01/06/2021 9:59 AM CDT documented as of this encounter
--- OUTSIDE RECORDS SUMMARY | 2021-02-07 15:50 | XMS REPORT | Clinical Summary ---
Author Author [facility] Organization [facility] Address Unknown Phone Unavailable Care Team Providers Care Study Director Name Role Phone None, Pcp MD PCP Unavailable Source Comments [facility] (Labor [facility] Delivery) documents do not appear in the [facility] Allergies Not on File Medications Please verify current medications with patient. Not on file Active Problems Not on file Social History Date Tobacco Use Types Packs/Day Years Used Never Assessed Sex Assigned at Date Recorded Not on file Last Filed Vital Signs Not on file Plan of Treatment Health Maintenance Due Date Last Done Comments COVID-19 Vaccine (1) 1947 DXA Scan 2001 Pneumococcal Vaccine: 65+ 2001 Years (1 of 1 - PPSV23) Influenza Vaccine (#1) 2021 HPV Vaccine Aged Out No longer eligible based on patient's age to complete this topic Results Not on filefrom Last 3 Months Insurance Type Payer Benefit Subscriber ID Effective Phone Address Plan / Dates Group Medicare MEDICARE ZZMEDICARE [id number] Effective [phone] PART for all [id number] [place] [address] [address] am[place] (Home) MIC[place]EL WAGNER [id number] Care Teams Start Date End Date Study Director Relationship Specialty 12/06/12 None, Pcp, MD PCP - General Other or Unknown Specialty
--- OUTSIDE RECORDS SUMMARY | 2021-02-07 15:50 | XMS REPORT | Encounter Summary ---
Author Author [facility] Organization [facility] Address Unknown Phone Unavailable Care Team Providers Care Scallop Cutter Machine Name Role Phone No Pcp, Na PCP Unavailable Encounter Details Care Team Description Date Type Department 01/01/2021 Hospital Imaging: [facility] [address] [place] [address] Social History Date Tobacco Use Types Packs/Day Years Used Never Assessed Sex Assigned at Date Recorded Female 01/07/2021 11:04 AM CDT documented as of this encounter Discharge Disposition Code Departure Means Destination Disposition Home Home or Self Care documented in this encounter Plan of Treatment Not on filedocumented as of this encounter Procedures Comments Procedure Name Priority Date/Time Associated Diag nosis MRI ABDOMEN EXTERNAL Routine 01/01/2021 IMAGING 12:00 AM CDT documented in this encounter Results * MRI ABDOMEN EXTERNAL IMAGING (01/01/2021 12:00 AM CDT) Specimen Narrative Performed At This order has been auto finalized and does not contain a result. documented in this encounter Visit Diagnoses Not on filedocumented in this encounter Additional Health Concerns Assessment Noted Time A fall risk assessment has been completed for the pat ient 12/30/2020 3:40 PM CDT documented as of this encounter
--- OUTSIDE RECORDS SUMMARY | 2021-02-07 15:50 | XMS REPORT | Continuity of Care Document ---
Author Author [facility] Address [address] [place] [address] Phone Care Team Providers Care Data Processing Mechanic Name Role Phone RicardoJoshua PCP MD Bogdan Bar Rndphys Allergies, Adverse Reactions, Alerts Allergen Type Severity Reaction Last Updated Verified Status codeine Adverse Reaction Moderate "Sometimes Codeine causes nausea" Ju ne 2020 1:33pm Yes Active donepezil Adverse Reaction [...] MCG PO Daily January 02, 2020 4:27pm [place]-3 Fatty Acids Active 1000 MG PO 2 Times Per Week January 02, 2020 4:2 7pm Diphenhydramine-Zinc Acetate Active 1 APPLIC TOPICAL Daily January 02, 2020 4:2 8pm CAM Walker Active 0 .ROUTE .MEDSUPPLY September 30, 2020 12:21pm As directed DX M66.871 ASO Ankle Brace Active 0 .ROUTE .MEDSUPPLY October 28, 2020 2:05pm As directed DX: M76.829 Vit A,C And X-Rkyswi-Phdbjryb Active 1 TAB PO Daily November 03, [...] Resolved Chest pain Resolved Hypokalemia Resolved Procedures No procedure information available. Relevant Diagnostic Tests and/or Laboratory Data Laboratory Results Test Date/Time Result Interpretation Reference Range Result Comment Performing Site White Blood Count December 14, 2020 11:48am 7.0 10^3/uL 4.5-11.0 [facility], [facility] [address] [facility] [address] Red Blood Count December 14, 2020 11:48am 4.59 10^6/uL 3.50-5.40 [place] [address] [address] [facility] [address] Hemoglobin December 14, 2020 11:48am 14.2 g/dL 12.0-16.0 [place] [address] [address] [facility] [address] Hematocrit December 14, 2020 11:48am 42.2 % 36-48 [place] [address] [address] [facility] [address] Mean Corpuscular Volume December 14 11:48am 92.0 fL 79-99 [facility], [facility] [address] [facility] [address] Mean Corpuscular Hemoglobin November 11:48am 31.0 pg 25.0-34.0 [place] [address] [place] [address] Mean Corpuscular Hemoglobin Concent December 14, 2020 11:48am 33.7 g/dL 31.0-36.0 [facility], [facility]. [address] [place] [address] Red Cell Distribution Width November 11:48am 13.9 % 11.0-15.0 [facility], [address] [place] [address] Platelet Count December 14, 2020 11:48am 234 10^3 uL 130-400 [facility], [address] [place] [address] Mean Platelet Volume December 14, 2020 11:48am 8.2 fL 7.0-11.0 [facility], [address] [place] [address] Monocyte Distribution Width November 11:48am 15.32 0.00-20.00 [facility], [address] [place] [address] Neutrophils % December 14, 2020 11:48am 62.5 % 43.0-72.0 [facility], [facility]. [address] [place] [address] Lymphocytes % December 14, 2020 11:48am 28.0 % 15.0-45.0 [facility], [facility]. [address] [place] [address] Monocytes % December 14, 2020 11:48am 5.7 % 1.0-12.0 [facility], [address] [place] [address] Eosinophils % December 14, 2020 11:48am 2.5 % 0.0-6.0 [facility], [address] [place] [address]70 Basophils % December 14, 2020 11:48am 1.3 % 0.0-2.0 [facility], [address] [place] [address] Neutrophils # December 14, 2020 11:48am 4.4 10^3/uL 1.0-8.0 [facility], [address] [place] [address] Lymphocytes # December 14, 2020 11:48am 2.0 10^3/uL 1.0-3.0 [facility], [address] [place] [address] Monocytes # December 14, 2020 11:48am 0.4 10^3/uL 0.0-1.0 [facility], [address] [place] [address] Eosinophils # December 14, 2020 11:48am 0.2 10^3/uL 0.0-0.4 [facility], [address] [place] [address] Basophils # December 14, 2020 11:48am 0.1 10^3/uL 0.0-0.2 [facility], [address] [place] [address] Nucleated Red Blood Cells % November 11:48am 0.0 % [facility], [address] [place] [address] Nucleated Red Blood Cells # November 11:48am 0.00 10^3/uL [facility], [address] [place] [address] Urine Color December 14, 2020 11:57am Yellow Yellow [facility], [address] [place] [address] Urine Appearance December 14, 2020 11:57am Clear Clear [facility], [address] [place] [address] 13442 Urine pH December 14, 2020 11:57am 6.0 [facility], [address] [place] [address] Urine Specific Gardner December 14 11:57am 1.020 [facility], [address] [place] [address] Urine Protein December 14, 2020 11:57am Negative Neg-Trace [facility], [address] [place] [address] Urine Glucose (UA) December 14, 2020 11:57am Negative Negative [facility], [address] [place] [address] Urine Ketones December 14, 2020 11:57am Negative Negative [facility], [address] [place] [address] Urine Blood December 14, 2020 11:57am Negative Negative [facility], [address] [facility] [address] Urine Nitrite December 14, 2020 11:57am Negative Negative [facility], [address] [facility] [address] Urine Bilirubin December 14, 2020 11:57am Negative Negative [facility], [address] [facility] [address] Urine Urobilinogen December 14, 2020 11:57am 1.0 [facility], [address] [facility] [address] Urine Leukocyte Esterase December 14, 2020 11:57am Negative Negative [facility], [address] [place] [address] Urine Culture Indicated December 14 11:57am Not Indicated No Culture Reflex Ordered.The specimen did not meet the following criteria OR contained >25 epithelials, indicating contamination. * Culture Criteria: * * * * Urinalysis Leukocyte 1+ or > * * Urinalysis Nitrates + * * Microscopic WBC 10 or > * * Microscopic Bacteria 2+ or > * * Microscopic Yeast 2+ or > * [facility], [address] [facility] [address] Urinalysis Comment December 14, 2020 11:57am See comment Asymptomatic bacteriuria should seldom if ever be treated unless related to or urologic surgery.Symptomatic urinary tract infection (UTI) is defined by 2 or more of the following without an alternative explanation:- Fever- Flank pain or tenderness- Suprapubic pain or tenderness- Costovertebral angle pain or tenderness- Acute hematuria- Dysuria- New or marked increase in frequency / urgencyPyuria alone is not a criterion for symptomatic UTI.Source: [facility] National Healthcare Safety Network Criteria for Defining UTI EventsTreatment [id number] line: Nitrofurantoin for 5 days; Bactrim DS for 3 [id number] line: Beta-lactams for 5 days; Cipro or Levaquin for 3 [place]Mill [place] Fluoroquinolones for severe infections or those with no alternative treatment options. Serious adverse effects outweigh benefits for patients with uncomplicated infections [facility], [address] [place], [place] [id number] Sodium Level December 14, 2020 11:48am 140 mmol/L 135-[address] [place], [place] [id number] Potassium Level December 14, 2020 11:48am 3.9 mmol/L 3.4-5.[address] [address] Chloride Level December 14, 2020 11:48am 108 mmol/L 100-[address] [place], [place] [id number] Carbon Dioxide Level December 14, 2020 11:48am 22 mEq/L 18-30 [place] [id number] Anion Gap December 14, 2020 11:48am 10 mmol/L 8-11 [facility], [facility] [address] [place] [address] Blood Urea Nitrogen December 14, 2020 11:48a m 13 mg/dL 5-21 [place] [id number] Creatinine December 14, 2020 11:48am 0.86 mg/dL 0.60-1.30 [place] [id number] Glomerular Filtration Rate Calc December 14, 2020 11:48am > 60 mL/Min The GFR is not validated for use in drug dosing adjustments.Continue to use estimated creatinine clearance per dosingreference text.Chronic Kidney Disease is defined as either kidney damage ora GFR less than 60 ml/min that persists for at least 3months. Stage 3 = 30-59 ml/min Stage 4 = 15-29 ml/min Stage 5 = <15 ml/min [facility], [address] [place] [address] Glucose Level December 14, 2020 11:48am 122 mg/dL 70-99 [facility], [address] [place] [address] Calcium Level December 14, 2020 11:48am 9.3 mg/dL 8.6-10.5 [facility], [address] [place] [address] Total Bilirubin December 14, 2020 11:48am 0.7 mg/dL 0.0-1.2 [facility], [address] [place] [address] Aspartate Amino Transf (AST/SGOT) Ju 2020 11:48am 26 U/L 6-37 [facility], [address] [place], [place] [id number] Alanine Aminotransferase (ALT/SGPT) December 14, 2020 11:48am 24 U/L 12-78 [facility], [address] [place] [address] Total Protein December 14, 2020 11:48am 6.9 g/dL 6.4-8.2 [facility], [address] [place] [address]308 Albumin December 14, 2020 11:48am 3.8 g/dL 3.3-4.5 [facility], [address] [place], [place] [id number] Albumin/Globulin Ratio December 14 11:48am 1.2 0.7-2.0 [facility], [address] [place] [address]793 Alkaline Phosphatase December 14, 2020 11:48am 170 U/L 50-136 [facility], [address] [place] [address]206 Lipase December 14, 2020 11:48am 32 U/L 8-78 [facility], [address] [place], [place] [id number] Health Concerns Health Concerns may be documented in an alternate section. Advance Directives Advance Directive Response Recorded Date/Time Advance Directive on File? No November 02, 2018 7:28pm Chief Complaint and Reason for Visit Chief Complaint Abdominal pain Encounters Encounter Location(s) Ar rival/Admit Date Discharge/Depart Date Provider(s) Departed Emergency [facility]Emergency Department December 14, 2020 11:28am December 14, 2 12:46pm null Assessments No Assessments Information Available Family History Relationship Condition A ge at Onset Recorded Date/Time father Cardiac disease U nknown Acute myocardial infarction Unknown mother Arteriosclerosis of coronary artery Unknown Alzheimer's disease Un known Hyperlipidemia Unknown paternal aunt Malignant neoplasm of breast Unknown Functional Status No Functional Status information available Goals Acute Goals Problem: Abdominal Pain Goal: Relief of abdominal pain Plan: Refer to patient instructions provided. Immunizations No Immunization Information Available Mental Status No Mental Status Information Available Medical Equipment Implanted Devices Device Date Implanted De vice Details ANGIO SEAL VIP [id number] November 13, 2017 ALLAN: Insurance Providers Guarantor Pearl Frias Address [address] [facility] [address] Contact Info. Home Phone: Payer Policy Id Coverage Id Subscriber's Name Subscriber Id Effective Date Expiration Date Blue Cross Plan 65 Secondary [id number] Pearl Skinnerlett [id number] Blue Cross Blue Shield [id number] Pearl Skinnerlett [id number] Cigna [employer] Ins [id number] Pearl Davis Frias [id number] Cigna [id number] Pearl Davis Frias [id number] Medicare [id number] Pearl Susan Frias [id number] Self Pay Self N/A Plan of Treatment Future Tests Future scheduled test information is unavailable Pending Tests Pending diagnostic test information is unavailable Future Visits Future appointment information is unavailable Referrals to Other Providers Reason for Referral Referral Start Date Provider Provider Carine ct Information Provider Address Catherine Silva Work Phone: [facility] [address], [address] [facility] [address] Future Procedures Future procedure information is unavailable Future Medications Future medication information is unavailable Patient Instructions Abdominal Pain (ED) Social History Smoking Status Status Date of Observation Ex-smoker (finding) December 14, 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 Observation Status Observation Response John e of Response quit date 1995 12:12pm second hand exposure No December 14, 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 alcohol intake occasionally November 09, 2017 10:44am housing house December 14, 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 household members spouse December 14, 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 service No December 14, 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 current occupational status retired December 14, 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 current occupational exposures/hazards No December 14, 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, 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 Assigned Sex Female Vital Signs Vital Reading Result Ref erence Range Collection Date/Time Height 66 [in_i] December 14, 2020 11:33am Weight 198.00 [lb_av] December 14, 2020 11:33am Body Temperature 98.2 [degF] 97.5-99.5 December 14, 2020 11:33am Heart Rate 65 /min 60-90 December 14, 2020 12:31pm Respiratory rate 16 /min 12-20 December 14, 2020 11:33am Oxygen saturation by Pulse oximetry 95 % 90- 100 December 14, 2020 12:31pm BP Systolic 138 mm[Hg] 1 00-160 December 14, 2020 12:30pm BP Diastolic 82 mm[Hg] 5 0-80 December 14, 2020 12:30pm BMI (Body Mass Index) 31.9 kg/m2 December 14, 2020 11:33am Hospital Discharge Instructions Additional Instructions Avoid greasy, fatty foods, avoid eating large meals Tylenol every 4 hours, Ibuprofen every 6-8 hours as needed for pain Need to schedule and out patient ultrasound of your gallbladder Follow up with Dr. Silva after your ultrasound to discuss and ED follow up Return to ED as needed, such as severe pain, uncontrolled nausea/vomiting, devel op fever or any other concerns.
--- OUTSIDE RECORDS SUMMARY | 2021-02-07 15:50 | XMS REPORT | Encounter Summary ---
Author Author [facility] Organization [facility] Address Unknown Phone Unavailable Care Team Providers Care Knife Setter Grinder Machine Name Role Phone PCP Unavailable Encounter Details Care Team Description Date Type Department 12/23/2020 Hospital Imaging: [facility] Encounter [facility] [address] [place] [address] Social History Date Tobacco Use Types Packs/Day Years Used Never Assessed Sex Assigned at Date Recorded Female 01/07/2021 11:04 AM CDT documented as of this encounter Discharge Disposition Code Departure Means Destination Disposition Home Home or Self Care documented in this encounter Plan of Treatment Not on filedocumented as of this encounter Procedures Comments Procedure Name Priority Date/Time Associated Diag nosis CT ABD/PEL EXTERNAL Routine 12/23/2020 IMAGING 12:00 AM CDT documented in this encounter Results * CT ABD/PEL EXTERNAL IMAGING (12/23/2020 12:00 AM CDT) Specimen Narrative Performed At This order has been auto finalized and does not contain a result. documented in this encounter Visit Diagnoses Not on filedocumented in this encounter
--- OUTSIDE RECORDS SUMMARY | 2021-02-07 15:50 | XMS REPORT | Encounter Summary ---
Author Author [facility] Organization [facility] Address Unknown Phone Unavailable Care Team Providers Care Security Systems Engineer Name Role Phone No Pcp, Na PCP Unavailable Encounter Details Care Team Description Date Type Department 01/06/2021 Travel Social History Date Tobacco Use Types [...]
--- OUTSIDE RECORDS SUMMARY | 2021-02-07 15:50 | XMS REPORT | Encounter Summary ---
Author Author [facility] Organization [facility] Address Unknown Phone Unavailable Care Team Providers Care Casket Upholsterer Name Role Phone No Pcp, Na PCP Unavailable Encounter Details Care Team Description Date Type Department Liz Layton MD [address] [facility] [place] [address] 01/06/2021 Hospital Oncology: Clinical Encounter [facility] [address] [facility] [place] [address] Social History Date Tobacco Use [...] Diagnosis Liver mass Unspecified disorder of liver Other abnormal tumor markers Other abnormal tumor markers documented in this encounter Additional Health Concerns Assessment Noted Time PHQ-2 Depression Total Score: 2 01/06/2021 9:59 AM CDT documented as of this encounter
[2021-02-07] MEDS ORDERED: LACTATED RINGERS 1,000 ML IV SCH (16:15)
[2021-02-07] MEDS ORDERED: IBUPROFEN 600 MG (MOTRIN) TAB PO ONE (16:15)
[2021-02-07] MEDS ORDERED: ONDANSETRON 4 MG/2 ML (SDV) Z0FRAN IVP ONE (16:15)
--- NOTE | 2021-02-07 16:19 | ED General ---
General Chief Complaint: Chest Wall Stated Complaint: NO APET,PAIN IN ABD,FATIGUE,WEAK Nursing Triage Note: PT ARRIVES TO ER BY WC WITH DAUGHTER WITH C/O LETHARGY, NAUSEA, AND RIB PAIN. THE RIB PAIN HAS BEEN GOING ON FOR A COUPLE OF YEARS. PT RECENTLY MOVED HERE FROM [place] AFTER . Source of Information: Patient, Family Exam Limitations: No Limitations (VANESSA TRAMMELL APRN) History of Present Illness Date Seen by Provider: Feb 07, 2021 Time Seen by Provider: 16:15 Initial Comments To ER by private vehicle accompanied by her daughter who lives with her with reports of lethargy and altered mental status today. No known fever at home but she is 89 on arrival here. She has been dealing with some epigastric and right upper quadrant abdominal pains for several months. Her primary care provider in [facility] where she formerly resided had a CT scan done which showed concerns for a hepatic mass. She was referred to the [facility] for biopsy but the mass was unable to be found at that time. She did have a pancreatic duct stent placed according to the daughter. She has had ongoing epigastric/right upper quadrant pain about 1 hour after eating for the past few weeks and subsequently she is not been eating much. She does not have a primary care provider since moving here to [place] yet. Timing/Duration: 1-2 Days Severity: Moderate Associated Systoms: Nausea/Vomiting (VANESSA TRAMMELL APRN) Allergies and Home Medications Allergies Coded Allergies: No Known Drug Allergies (Unverified , 02/07/21) Patient Home Medication List Home Medication List Reviewed: Yes (VANESSA TRAMMELL APRN) Amlodipine Besylate (Amlodipine Besylate) 5 Mg Tablet, 5 MG PO 1400, (Reported) Entered as Reported by: MENA PIERSON on 02/09/21 1055 Ascorbic Acid (Vitamin C) 500 Mg Capsule, 500 MG PO HS, (Reported) Entered as Reported by: MENA PIERSON on 02/09/21 1055 Ascorbic Acid/Elderberry Fruit (Elderberry-Vit C 50-100 mg Chw) 1 Each Tab.chew, 1 EACH PO HS, (Reported) Entered as Reported by: MENA PIERSON on 02/09/21 1055 Aspirin (Aspirin EC) 81 Mg Tablet.dr, 81 MG PO 1400, (Reported) Entered as Reported by: MENA PIERSON on 02/09/211054 Biotin (Biotin) 1,000 Mcg Tablet, 1,000 MCG PO HS, (Reported) Entered as Reported by: MENA PIERSON on 02/09/211054 Calcium Carbonate (Calcium) 500 Mg Tablet, 500 MG PO HS, (Reported) Entered as Reported by: MENA PIERSON on 02/09/211054 Cholecalciferol (Vitamin D3) (Vitamin D3) 25 Mcg Tablet, 25 MCG PO HS, (Reported) Entered as Reported by: MENA PIERSON on 02/09/211054 Cyanocobalamin (Vitamin B-12) (Vitamin B-12) 500 Mcg Tablet, 500 MCG PO HS, (Reported) Entered as Reported by: MENA PIERSON on 02/09/211054 Levothyroxine Sodium (Levothyroxine Sodium) 75 Mcg Tablet, 75 MCG PO DAILY, (Reported) Entered as Reported by: MENA PIERSON on 02/09/211054 Losartan Potassium (Losartan Potassium) 50 Mg Tablet, 50 MG PO 1400, (Reported) Entered as Reported by: MENA PIERSON on 02/09/211054 [place]-3 Fatty Acids/Fish Oil (Fish Oil 1,200 mg Softgel) 1 Each Capsule, 1 EACH PO HS, (Reported) Entered as Reported by: MENA PIERSON on 02/09/211054 Vitamin A (Vitamin A) 2,400 Mcg Capsule, 2,400 MCG PO HS, (Reported) Entered as Reported by: MENA PIERSON on 02/09/211054 Vitamin E Acetate (Vitamin E) 400 Unit Capsule, 400 UNIT PO HS, (Reported) Entered as Reported by: MENA PIERSON on 02/09/211054 Review of Systems Review of Systems Constitutional: see HPI EENTM: see HPI Respiratory: no symptoms reported Cardiovascular: no symptoms reported Gastrointestinal: abdominal pain Genitourinary: no symptoms reported Musculoskeletal: no symptoms reported Skin: no symptoms reported Psychiatric/Neurological: No Symptoms Reported Hematologic/Lymphatic: No Symptoms Reported Immunological/Allergic: no symptoms reported (VANESSA TRAMMELL APRN) Past Grbyaoq-Znerco-Zvvsch Hx Patient Social History Tobacco Use?: No Substance use?: No Alcohol Use?: No Pt feels they are or have been: No (VANESSA TRAMMELL APRN) Immunizations Up To Date Influenza Vaccine Up-to-Date: Yes; Up-to-Date First/Initial COVID19 Vaccinat: JUN 2020 Second COVID19 Vaccination John: JULY 2020 COVID19 Vaccine Psychologists: JERICA (VANESSA TRAMMELL APRN) Physical Exam Vital Signs Vital Signs - First Documented 02/07/21 16:01 Temp 38.3 Pulse 100 Resp 20 B/P (MAP) 142/72 (95) Pulse Ox 94 O2 Delivery Room Air (CONSTANCE FU) Vital Signs Capillary Refill : Less Than 3 Seconds (VANESSA TRAMMELL APRN) Height, Weight, BMI Height: '" Weight: lbs. oz. kg; 30.00 BMI Method: General Appearance: No Apparent Distress, WD/WN, Other (Febrile at 38 C, tachycardic with a heart rate of 100 though her pressure is fine at is my patient 142/72 heart rate 101 oxygen 92% room air.) Eyes: Bilateral Eye Normal Inspection, Bilateral Eye PERRL, Bilateral Eye EOMI Neck: Full Range of Motion, Normal Inspection Respiratory: No Accessory Muscle Use Cardiovascular: Regular Rate, Rhythm, Normal Peripheral Pulses Gastrointestinal: Non Tender, Soft Extremity: Normal Capillary Refill, Normal Inspection Neurologic/Psychiatric: Alert, Oriented x3 Skin: Normal Color, Warm/Dry (VANESSA TRAMMELL APRN) Focused Exam Lactate Level 02/07/21 16:17: Lactic Acid Level 2.44*H (CONSTANCE FU) Lactic Acid Level Laboratory Tests Test 02/07/21 16:17 Lactic Acid Level 2.44 MMOL/L (0.50-2.00) *H (CONSTANCE FU) Progress/Results/Core Measures Suspected Sepsis SIRS Temperature: Pulse: 100 Respiratory Rate: 20 Laboratory Tests 02/07/21 16:17: White Blood Count 10.4 Blood Pressure 142 /72 Mean: 95 02/07/21 16:17: Lactic Acid Level 2.44*H Laboratory Tests 02/07/21 16:17: Creatinine 0.95, INR Comment 1.1, Platelet Count 159, Total Bilirubin 1.3H (VANESSA TRAMMELL APRN) Results/Orders Lab Results Laboratory Tests Test 02/07/21 16:17 02/07/21 16:57 02/07/21 17:09 Range/Units White Blood Count 10.4 4.3-11.0 10^3/uL Red Blood Count 4.42 3.80-5.11 10^6/uL Hemoglobin 13.8 11.5-16.0 g/dL Hematocrit 42 35-52 % Mean Corpuscular Volume 94 80-99 fL Mean Corpuscular Hemoglobin 31 25-34 pg Mean Corpuscular Hemoglobin Concent 33 32-36 g/dL Red Cell Distribution Width 13.4 10.0-14.5 % Platelet Count 159 130-400 10^3/uL Mean Platelet Volume 10.4 9.0-12.2 fL Immature Granulocyte % (Auto) 0 % Neutrophils (%) (Auto) 94 H 42-75 % Lymphocytes (%) (Auto) 3 L 12-44 % Monocytes (%) (Auto) 3 0-12 % Eosinophils (%) (Auto) 0 0-10 % Basophils (%) (Auto) 0 0-10 % Neutrophils # (Auto) 9.7 H 1.8-7.8 10^3/uL Lymphocytes # (Auto) 0.3 L 1.0-4.0 10^3/uL Monocytes # (Auto) 0.3 0.0-1.0 10^3/uL Eosinophils # (Auto) 0.0 0.0-0.3 10^3/uL Basophils # (Auto) 0.0 0.0-0.1 10^3/uL Immature Granulocyte # (Auto) 0.0 0.0-0.1 10^3/uL Neutrophils % (Manual) 84 % Lymphocytes % (Manual) 3 % Monocytes % (Manual) 2 % Eosinophils % (Manual) 0 % Basophils % (Manual) 0 % Band Neutrophils 11 % Blood Morphology Comment NORMAL Prothrombin Time 14.2 12.2-14.7 SEC INR Comment 1.1 0.8-1.4 Activated Partial Thromboplast Time 29 24-35 SEC Sodium Level 129 L 135-145 MMOL/L Potassium Level 3.9 3.6-5.0 MMOL/L Chloride Level 95 L 98-107 MMOL/L Carbon Dioxide Level 22 21-32 MMOL/L Anion Gap 12 5-14 MMOL/L Blood Urea Nitrogen 11 7-18 MG/DL Creatinine 0.95 0.60-1.30 MG/DL Estimat Glomerular Filtration Rate 56 BUN/Creatinine Ratio 12 Glucose Level 204 H 70-105 MG/DL Lactic Acid Level 2.44 *H 0.50-2.00 MMOL/L Calcium Level 9.6 8.5-10.1 MG/DL Corrected Calcium 9.6 8.5-10.1 MG/DL Total Bilirubin 1.3 H 0.1-1.0 MG/DL Aspartate Amino Transf (AST/SGOT) 47 H 5-34 U/L Alanine Aminotransferase (ALT/SGPT) 49 0-55 U/L Alkaline Phosphatase 202 H 40-136 U/L Ammonia 23 11-32 UMOL/L B-Type Natriuretic Peptide 40.4 <100.0 PG/ML Total Protein 7.4 6.4-8.2 GM/DL Albumin 4.0 3.2-4.5 GM/DL Lipase 24 8-78 U/L Procalcitonin 1.12 H <0.10 NG/ML SARS-CoV-2 RNA (RT-PCR) Not Detected Not Detecte Urine Color YELLOW Urine Clarity CLEAR Urine pH 6.0 5-9 Urine Specific [place] <=1.005 1.016-1.022 Urine Protein NEGATIVE NEGATIVE Urine Glucose (UA) NEGATIVE NEGATIVE Urine Ketones TRACE H NEGATIVE Urine Nitrite NEGATIVE NEGATIVE Urine Bilirubin NEGATIVE NEGATIVE Urine Urobilinogen 1.0 < = 1.0 MG/DL Urine Leukocyte Esterase NEGATIVE NEGATIVE Urine RBC (Auto) 1+ H NEGATIVE Urine RBC 0-2 /HPF Urine WBC RARE /HPF Urine Squamous Epithelial Cells 5-10 /HPF Urine Crystals NONE /LPF Urine Bacteria NEGATIVE /HPF Urine Casts NONE /LPF Urine Mucus NEGATIVE /LPF Urine Culture Indicated CULTURE PENDING (CONSTANCE FU) Micro Results Microbiology 02/07/21 Urine Culture - Preliminary, Resulted Escherichia coli 02/07/21 Blood Culture - Preliminary, Resulted Probable Klebsiella/Enterobact (CONSTANCE FU) Vital Signs/I&O 02/07/21 02/07/21 02/07/21 02/07/21 16:01 16:22 16:37 18:35 Temp 38.3 38.3 Pulse 100 100 87 Resp 20 20 18 B/P (MAP) 142/72 (95) 109/59 Pulse Ox 94 94 94 96 O2 Delivery Room Air Room Air Room Air Room Air (CONSTANCE FU) Vital Signs/I&O Capillary Refill : Less Than 3 Seconds (VANESSA TRAMMELL APRN) Blood Pressure Mean: 95 Progress Note #1: Time: 15:00 Progress Note 02/08/21: Microbiology informs us that her urine is growing out E. coli and her blood culture in both bottles is growing out either Klebsiella or Enterobacter. Patient had fever of unknown origin and was allowed to go home and follow-up outpatient yesterday. Called and left a voicemail on her cell phone and home phone to have her call us back. Progress Note #2: Time: 15:23 Progress Note 02/08/17: Made contact with the patient and encouraged her to come to the ER for IV antibiotics, assessment and stabilization. Patient agrees with this plan and says her daughter is present with her and can bring her to the ER. (CONSTANCE FU) Diagnostic Imaging Diagonstic Imaging: Xray Comments NAME: LEIGHA RUSH [facility] REC#: [id number] PT STATUS: REG ER : 1935 PHYSICIAN: VANESSA TRAMMELL APRN ADMIT DATE: 02/07/21/ER Draft Date of Exam:02/07/21 CHEST 1 VIEW, AP/PA ONLY INDICATION: Fever. COMPARISON: None available. TECHNIQUE: Single radiograph of the chest dated February 07, 2021. FINDINGS: The cardiac silhouette is within normal limits in size. No significant pulmonary vascular congestion. Calcified granuloma is noted overlying the left upper lung. The lungs are otherwise clear of focal pulmonary opacity. No pleural effusion. No pneumothorax. No acute osseous abnormality. IMPRESSION: No acute cardiopulmonary abnormality with evidence of chronic granulomatous disease. Dictated on workstation # [id number] Dict: 02/07/211701 Trans: 02/07/211706 [facility] [id number] Interpreted by: OSCAR JAQUEZ MD Electronically signed by: (VANESSA TRAMMELL APRN) Departure Communication (Admissions) NAME: LEIGHA RUSH [facility] REC#: [id number] PT STATUS: REG ER : 1935 PHYSICIAN: VANESSA TRAMMELL APRN ADMIT DATE: 02/07/21/ER Signed Date of Exam:02/07/21 CT ABDOMEN/PELVIS W PROCEDURE: CT abdomen and pelvis with contrast. TECHNIQUE: Multiple contiguous axial images were obtained through the abdomen and pelvis after administration of intravenous contrast. Auto Exposure Controls were utilized during the CT exam to meet ALARA standards for radiation dose reduction. All CT scans use one or more of the following dose optimizing techniques: automated exposure control, MA and/or KvP adjustment based on patient size and exam type or iterative reconstruction. Indication: Right upper quadrant pain, history of liver mass. Comparison: None. Discussion: Lung bases are well-aerated. Normal heart size. No pleural or pericardial fluid. Common bile duct stent is noted. Gallbladder is partially contracted. Linear structures within the inferior and posterior right hepatic lobe may represent dilated hepatic veins. No discrete mass identified. The spleen is enlarged and contains a probable cyst. The pancreas, stomach, and adrenal glands are unremarkable. No renal stone, mass, or hydronephrosis. Diverticulosis with no secondary evidence for diverticulitis. The bladder is decompressed. Uterus is unremarkable. No ascites or adenopathy identified. Severe atherosclerotic plaque is noted throughout the aorta. No acute osseous abnormality identified. Impression: 1. No acute abnormality within the abdomen or pelvis. The spleen is significantly enlarged measuring up to 15 cm. 2. Diverticulosis. Dictated by: Dictated on workstation # [id number] Dict: 02/07/21 1647 Trans: 02/07/21 1651 [facility] [id number] Interpreted by: MINH LESTER MD Electronically signed by: MINH LESTER MD 02/07/21 1650 [id number] reviewed records from [facility]. She had an ultrasound on 12/15/2020 showing a simple cyst in the spleen with an otherwise normal study. The CT abdomen pelvis on 12/23/2020 showed vague low-attenuation focus within the posterior medial aspect of the right hepatic lobe centered on image 24 measuring 2.4 x 2.4 cm suspicious for malignancy. There is associated rotation of the phrenic biliary ductal system in the adjacent portions of the right posterior hepatic lobe and right caudate lobe. This mass encases the proximal aspect of the right main portal vein causing luminal narrowing. Enlarging splenic cystic focus measuring 3.7 x 2.9 cm. She reported in the clinic that she had been depressed since her in August of this year. She had an ERCP/endoscopic ultrasound with brushing of the common bile duct which had cells negative for malignancy. She had a pancreatic stent placed. The endoscopic ultrasound on the left lobe of the liver showed no intrahepatic mass or ductal dilatation, celiac axis was visualized and normal. No celiac nodes. No abnormality within the pancreatic parenchyma to suggest huston creatitis or mass. Right lobe of the liver was carefully inspected due to MRI findings previously noted. No intrahepatic masses were visualized on the endoscopic ultrasound. On ERCP the ampulla appeared small but otherwise unremarkable. Cholangiogram showed normal-appearing left and right hepatic ducts without evidence of stricture. Common bile duct was not dilated. In the distalmost common bile duct approximately 2 cm there was a tight appearing stricture. A 6 to 7 mm traction biliary sphincterotomy was performed. Brushing was obtained of the distal common bile duct stricture x2. Again this was negative for malignant cells. However, she has a rising CA 19-9. On January 06 it was 419, on February 02 it was 574. 1808-discussed with Dr. Stockton, agrees with letting the patient go home if that is her wish and if she is feeling better. Discussed with the patient and her daughter who is at the bedside. She is mentating well at this time, back to baseline. This may have been associated with a fever. I do not find obvious source of the fever. This may be fever associated with an undiagnosed GI malignancy. Her CT and urine look fine, chest x-ray clear Covid negative. She is not hypotensive. Still 109/59, oxygen 96% room air no cough. Alert and oriented. She plans to follow-up with Dr. Cosby tomorrow to establish care. Daughter and patient both agree to return overnight if she develops any confusion, worsening or recurrent symptoms. (VANESSA TRAMMELL APRN) Impression Primary Impression: Fever of unknown origin Additional Impression: Epigastric pain Disposition: HOME, SELF-CARE Condition: Stable Departure-Patient Inst. Decision time for Depature: 18:11 (VANESSA TRAMMELL APRN) Referrals: ANJALI FERNANDEZ BETHANY N MD GAULT, HOLLY R MD HUERTER, DAVID F MD NO,LOCAL PHYSICIAN (PCP) Primary Care Physician LUIS COSBY MD Patient Instructions: NO INSTRUCTIONS GIVEN Add. Discharge Instructions: . Return to ER for any fevers uncontrollable nausea vomiting or pain. Keep your appointment with Dr. Schoeling tomorrow. Discuss getting a HIDA scan to evaluate for gallbladder dysfunction as a cause of your pain after eating. All discharge instructions reviewed with patient and/or family. Voiced understanding. ATTENDING PHYSICIAN NOTE: I WAS PHYSICALLY PRESENT ER PHYSICIAN WHEN THIS PATIENT WAS IN ER, BUT I WAS NOT INVOLVED IN DECISION MAKING OR ANY CARE OF THIS PATIENT (FENG BOYD DO) Copy Copies To 1: LUIS COSBY MD, PETER J APRN Feb 07, 2021 16:19 CONSTANCE FU Feb 08, 2021 15:04 FENG BOYD DO Feb 09, 2021 14:58
[2021-02-07 16:29] LABS: BASOPHILS % (AUTO) 0 % (0-10); EOSINOPHILS % (AUTO) 0 % (0-10); HEMATOCRIT 42 % (35-52); HEMOGLOBIN 13.8 g/dL (11.5-16.0); LYMPHOCYTES # (AUTO) 0.3 10^3/uL (1.0-4.0); LYMPHOCYTES % (AUTO) 3 % (12-44); MEAN CORPUSCULAR HEMOGLOBIN 31 pg (25-34); MEAN CORPUSCULAR HGB CONC 33 g/dL (32-36); MEAN CORPUSCULAR VOLUME 94 fL (80-99); MEAN PLATELET VOLUME 10.4 fL (9.0-12.2); MONOCYTES # (AUTO) 0.3 10^3/uL (0.0-1.0); MONOCYTES % (AUTO) 3 % (0-12); NEUTROPHILS # (AUTO) 9.7 10^3/uL (1.8-7.8); NEUTROPHILS % (AUTO) 94 % (42-75); PLATELET COUNT 159 10^3/uL (130-400); WHITE BLOOD COUNT 10.4 10^3/uL (4.3-11.0)
[2021-02-07 16:42] LABS: POTASSIUM 3.9 MMOL/L (3.6-5.0)
[2021-02-07 16:44] LABS: CALCIUM 9.6 MG/DL (8.5-10.1); INR 1.1 (0.8-1.4); PROTHROMBIN TIME PATIENT 14.2 SEC (12.2-14.7)
[2021-02-07 16:45] LABS: TOTAL PROTEIN 7.4 GM/DL (6.4-8.2)
[2021-02-07] MEDS ORDERED: NS 100 ML (IVPB) BAG IV ONE (16:45)
[2021-02-07] MEDS ORDERED: IOHEXOL 350 MG/ML 100 ML (OMNIPAQUE 350) VIAL IV ONE (16:45)
[2021-02-07] MEDS ORDERED: HOLD METFORMIN - RECEIVED CONTRAST 20 ML VIAL IV SCH (16:45)
[2021-02-07 16:47] LABS: BILIRUBIN,TOTAL 1.3 MG/DL (0.1-1.0)
[2021-02-07 16:48] LABS: CREATININE SERUM 0.95 MG/DL (0.60-1.30)
--- NOTE | 2021-02-07 16:52 | Diagnostic Imaging Report ---
PROCEDURE: CT abdomen and pelvis with contrast. TECHNIQUE: Multiple contiguous axial images were obtained through the abdomen and pelvis after administration of intravenous contrast. Auto Exposure Controls were utilized during the CT exam to meet ALARA standards for radiation dose reduction. All CT scans use one or more of the following dose optimizing techniques: automated exposure control, MA and/or KvP adjustment based on patient size and exam type or iterative reconstruction. Indication: Right upper quadrant pain, history of liver mass. Comparison: None. Discussion: Lung bases are well-aerated. Normal heart size. No pleural or pericardial fluid. Common bile duct stent is noted. Gallbladder is partially contracted. Linear structures within the inferior and posterior right hepatic lobe may represent dilated hepatic veins. No discrete mass identified. The spleen is enlarged and contains a probable cyst. The pancreas, stomach, and adrenal glands are unremarkable. No renal stone, mass, or hydronephrosis. Diverticulosis with no secondary evidence for diverticulitis. The bladder is decompressed. Uterus is unremarkable. No ascites or adenopathy identified. Severe atherosclerotic plaque is noted throughout the aorta. No acute osseous abnormality identified. Impression: 1. No acute abnormality within the abdomen or pelvis. The spleen is significantly enlarged measuring up to 15 cm. 2. Diverticulosis. Dictated by: Dictated on workstation # [id number]
[2021-02-07] MEDS ORDERED: NS IV 1000 ML 1,000 ML IV SCH (17:00)
--- NOTE | 2021-02-07 17:07 | Diagnostic Imaging Report ---
INDICATION: Fever. COMPARISON: None available. TECHNIQUE: Single radiograph of the chest dated February 07, 2021. FINDINGS: The cardiac silhouette is within normal limits in size. No significant pulmonary vascular congestion. Calcified granuloma is noted overlying the left upper lung. The lungs are otherwise clear of focal pulmonary opacity. No pleural effusion. No pneumothorax. No acute osseous abnormality. IMPRESSION: No acute cardiopulmonary abnormality with evidence of chronic granulomatous disease. Dictated by: Dictated on workstation # [id number]
[2021-02-07 17:15] LABS: BILIRUBIN,URINE NEGATIVE (NEGATIVE); CLARITY,URINE CLEAR; COLOR,URINE YELLOW; GLUCOSE, URINE (UA) NEGATIVE (NEGATIVE); KETONES,URINE TRACE (NEGATIVE); LEUKOCYTE ESTERASE ,URINE NEGATIVE (NEGATIVE); NITRITE,URINE NEGATIVE (NEGATIVE); PROTEIN,URINE NEGATIVE (NEGATIVE)
[2021-02-07 17:25] LABS: BACTERIA,URINE NEGATIVE /HPF; RBC,URINE 0-2 /HPF; WBC,URINE RARE /HPF
[2021-02-07 17:32] LABS: BAND NEUTROPHILS 11 %; BASOPHILS % (MANUAL) 0 %; EOSINOPHILS % (MANUAL) 0 %; LYMPHOCYTES % (MANUAL) 3 %; MONOCYTES % (MANUAL) 2 %; NEUTROPHILS % (MANUAL) 84 %; RBC MORPH NORMAL
[2021-02-07] MEDS ORDERED: RX-ONDANSETRON 4 MG ODT (ZOFRAN) PPK #4 PO STA (18:13)
[2021-02-07] MEDS ORDERED: cefTRIAXone 1,000 MG in WATER (STERILE) FOR INJECTION 10 ML IV ONE (18:15)
[2021-02-07 18:35] VITALS: BP 109/59
[2021-02-10] MEDS ORDERED: CEFD300C3 PO (10:50)
== END 2021-02-07 18:37 | disposition home or self-care (01) ==
LOC: ER 15:45
DX: R50.9 Fever, unspecified (principal); R10.13 Epigastric pain; Z20.822 Contact with and (suspected) exposure to COVID-19
CPT/HCPCS: 36415; 71045; 74177; 80053; 81000; 82140; 83605; 83690; 83880; 84145; 85007; 85027; 85610; 85730; 87040; 87077; 87088; 87186; 87636; 96374; 96375

== ENCOUNTER 2021-02-08 16:21 | Inpatient (IN) | payer MEDICARE, OTHER ==
[~2021-02-08] VITALS: Ht 167.7 cm; Wt 87.5 kg
--- OUTSIDE RECORDS SUMMARY | 2021-02-08 16:26 | XMS REPORT | Encounter Summary ---
Author Author [facility] Address Unknown Phone Unavailable Care Team Providers Care Alberene Stone Setter Name Role Phone Jeromy Silva MD PCP [phone] Reason for Visit * Reason Onset Date Comments Calling For Orders 02/08/2021 ER follow up Encounter Details Care Team Description Date Type Department Jeromy Silva MD [address] [address] [email or web address] Calling For Orders (ER follow up ) 02/08/2021 Nurse Brian Subramanian Inter nal Triage-Office Medicine - [place] [facility] [address] [place] [address] Social History Date Tobacco Use Types Packs/Day [...] Telephone Encounter - Arlin Morris LPN - 02/08/2021 3:03 PM CDT Images from the original note were not included. Katy Suarez LPN P Ricardo Pinzon (Ilya) Staff Please fax record release to [phone] [facility] in [place] and request ER report on patient from 02/07/21. I called and they require a paper req uest form. Patient has HF . Thank you. Records release formed filled out and placed up front for patient to come in and sign * Telephone Encounter - Katy Suarez LPN - 02/08/2021 2:21 PM CDT Staff message sent to in office staff to request record release faxed to [facility] sima kennyi for ER records to [phone]. * Telephone Encounter - Jeromy Silva MD - 02/08/2021 10:25 AM CDT She had no gallstones on gallbladder ultrasound in November so I do not think she ne eds another scan. See if records can be sent from the ER visit. * Telephone Encounter - Keren Mccracken RN - 02/08/2021 10:20 AM CDT Patient calling back in. States she went to the ER in [facility] yesterday at [facility]. States she went in for abdominal pain. States whenever she would ea t, about an hour later she would have pain in her abdomen. She has had chills, a nd did run a temp of 101 yesterday. Today it is 99.0. Reports the ER did lab, UA , CT. Daughter reports they gave her a nausea pill, pain pill and abtx. Patient reports this pain is not new and you are aware of this. States the ER wa nted her to do a gallbladder scan and to follow up with PCP. She states she has moved to [place] but has not established with new provider yet. I scheduled her for video visit for ER follow up on Thursday. I do not see records in right fax yet for review. She also wanted you to know that she saw Dr. Layton on 01/06 and 01/21 and will see h im again on 03/02 * Telephone Encounter - Eloise Landry, RN - 02/08/2021 9:38 AM CDT Received VM regarding need to call patient in regards to gallbladder test. This nurse attempted to call back, NA and LVM to call back with more information. documented in this encounter Plan of Treatment Care Team Description Date Type Specialty Jeromy Silva MD [address] [place] [address] 02/11/2021 Telemedicine Internal Medicine documented as of this encounter Visit Diagnoses Not on filedocumented in this encounter Additional Health Concerns Noted Time Assessment 03/14/2014 9:55 AM CDT A fall risk assessment has been complet ed for the patient documented as of this encounter Care Teams Start Date End Date Alberene Stone Setter Relationship Specialty 09/03/13 Jeromy Silva, PCP - General documented as of this encounter
--- OUTSIDE RECORDS SUMMARY | 2021-02-08 16:26 | XMS REPORT | Encounter Summary ---
Author Author [facility] Organization [facility] Address Unknown Phone Unavailable Care Team Providers Care Director Of National Sales Name Role Phone eJromy Silva MD PCP [phone] Encounter Details Care Team Description Date Type Department Link, Onbase 12/24/2020 Orders Only [facility] [id number] [place] [address] Social History Date Tobacco Use Types Packs/Day [...] as of this encounter Plan of Treatment Care Team Description Date Type Specialty Jeromy Silva MD [address] [place] [address] [email or web address] 02/11/2021 Telemedicine Internal Medicine Date/Time Name Type Priority Associated Diag noses [...] encounter Care Teams Start Date End Date Director Of National Sales Relationship Specialty 09/03/13 Jeromy Silva, PCP - General [email or web address] documented as of this encounter
--- OUTSIDE RECORDS SUMMARY | 2021-02-08 16:26 | XMS REPORT | Clinical Summary ---
Author Author [facility] Address Unknown Phone Unavailable Care Team Providers Care Geophysical Laboratory Chief Name Role Phone Jeromy Silva MD PCP [phone] Allergies Comments Active Allergy Reactions Severity [...] biopsied. She would like to go to [facility] as her Ambronitebridger works there. L ast Assessment & Plan: [...] biopsied. She would like to go to [facility] as her I-Stand ndson works there. Insufficiency of posterior tibial [...] 21, 09/13/18. [place] 12380 units/d, 09/13/18. Vitamin D level increased to [...] 21, 09/13/18. [place] [address] units/d, 09/13/18. Vitamin D level increased to [...] long time. Her daughter has come to [employer] with them so she can cook and drive which has helped. Her daughter n eeds to leave to take a job. She has to sell her home. She can not find a house to move into in [place], [place]. She is from [place] so she still has some friends there. [...] long time. Her daughter has come to [employer] with them so she can cook and drive which has helped. Her daughter n eeds to leave to take a job. She has to sell her home. She can not find a house to move into in [place], [place]. She is from [place] so she still has some friends there. [...] original. I offered to refer her to physical scientist apy but she does not want to yet. L ast Assessment & Plan: Formatting of this note might be differ ent from the original. I offered to refer her to physical scientist shelby but she does not want to [...] identified. She was dismissed to home w [facility] and doxycycline 100 mg twice daily for [...] Encounters Care Team Description Date Type Specialty Jeromy Silva MD Calling For Orders (ER follow up ) 02/08/2021 Nurse Internal Medicine Triage-Office Hours Gisele Iniguez MA Liver mass 01/04/2021 Orders Only Internal Medicine Jeromy Silva MD 01/01/2021 Chart Note Internal Medicine [...] tendon 12/23/2020 Office Visit Internal Medicine Provider, Notinsystem_2, MODEL USER RUQ pain 12/15/2020 Imaging Radiology [...] Heart attack Father age 52 due to [place] while driving. Alzheimer's disease Mother Diana age [...] CDT Body Mass Index Plan of Treatment Care Team Description Date Type Specialty Jeromy Silva MD [address] [place], [place] [id number] [email or web address] 02/11/2021 Telemedicine Internal Medicine Health Maintenance Due Date Last Done Comments [...] CDT) WBC 7.5 3.5 - 10.5 10E9/L [facility] RBC 4.45 3.90 - 5.03 10E12/L [facility] Hemoglobin 13.8 12.0 - 15.5 g/dL [facility] Hematocrit 44.1 34.9 - 44.5 % [facility] MCV 99.1 (H) 81.6 - 98.3 fL [facility] MCH 31.0 26.0 - 34.0 pg [facility] MCHC 31.3 31.0 - 37.0 g/dL [facility] RDW 13.5 11.9 - 15.5 % [facility] Platelets 271 150 - 450 10E9/L [facility] nRBC 0.00 <=0.00 10E9/L [facility] Neutrophils % 61.7 40.0 - 75.0 % [facility] Lymphocytes % 28.4 22.0 - 49.0 % [facility] Monocytes % 5.6 2.0 - 10.0 % [facility] Eosinophils % 3.1 <=5.0 % [facility] Basophils % 1.2 0.0 - 2.5 % [facility] Neutrophils 4.60 1.70 - 7.00 10E9/L [facility] Lymphocytes 2.12 0.90 - 2.90 10E9/L [facility] Monocytes 0.42 0.30 - 0.90 10E9/L [facility] Eosinophils 0.23 0.05 - 0.50 10E9/L [facility] Basophils 0.09 0.00 - 0.30 10E9/L [facility] % nRBC 0 % [facility] Specimen Blood Performing Organization Address City/State/ZIP Code P jacinta Number [facility] [address] [place] [address] * Comprehensive metabolic panel (12/31/2020 11:04 AM CDT) Sodium 139 136 - 145 mmol/L [facility] Potassium 4.1 3.6 - 4.9 mmol/L [facility] Chloride 106 99 - 111 mmol/L [facility] CO2 28 20 - 36 mmol/L [facility] Anion Gap 5 [facility] Glucose 87 74 - 106 mg/dL [facility] Total Protein 6.6 5.7 - 8.2 g/dL [facility] Albumin 4.3 3.4 - 4.8 g/dL [facility] Calcium 9.7 8.3 - 10.6 mg/dL [facility] BUN, Bld 13 6 - 20 mg/dL [facility] Creatinine 0.80 0.40 - 1.10 mg/dL [facility] eGFR >59 >59 mL/min [facility] Total Bilirubin 0.7 0.0 - 1.2 mg/dL [facility] Alkaline 190 (H) 29 - 122 U/L [facility] LABOR[facility]ORY ALT 25 10 - 46 U/L [facility] AST 24 16 - 37 U/L [facility] Specimen Blood Performing Organization Address City/State/ZIP Code P jacinta Number [facility] [address] [place] [address] * US ABDOMEN COMPLETE (12/15/2020 10:53 AM [...] 6 clinical variables at (best internet site) https://www.mdapp.co/orfuq-dmhcpgfe-letiw-calculator-239/ , used together with sonographic Liver Elastography, [...] Plan / Dates Group Medicare MEDICARE MEDICARE [id number] [id number] [place] [address] Advance Directives For more information, please contact: [phone] Patient Greaser Helper Explanation Type Date Recorded Advance Directives and Living Will Power of [employer] Dynamics Ax Developer Care Teams Start Date End Date Geophysical Laboratory Chief Relationship Specialty 09/03/13 Jeromy Silva, PCP - General
--- OUTSIDE RECORDS SUMMARY | 2021-02-08 16:27 | XMS REPORT | Encounter Summary ---
Author Author [facility] Organization [facility] Address Unknown Phone Unavailable Care Team Providers Care Social Scientist Name Role Phone Catherine Silva MD PCP Reason for Visit * Auth/Cert Referred By Contact Referred To Contact Status Reason Specialty Diagnoses / Procedures Diagnoses Liver mass Liver mass [R16.0] P rocedures UT EGD INTRMURAL US NEEDLE ASPIRATE/BIOPSY ESOPHAGS UT ERCP DX COLLECTION SPECIMEN BRUSHING/WASHING ESOPHAGOGASTRODUOD ENOSCOPY WITH TRANSENDOSCOPIC ULTRASOUND GUIDED FINE NEEDLE ASPIRATION/ BIOPSY ENDOSCOPIC RETROGRADE CHOLANGIOPANCREATO GRAPHY Encounter Details Care Team Description Date Type Department Michele Pedraza MD [address] [facility] [place] [address] 01/21/2021 Hospital Laboratory: Main Ca mpus, Encounter [facility] [address] [place] [address]. [address], [address] [place] [address] Social History Date Tobacco Use Types Packs/Day [...] exam METABOLIC PANEL 11:52 AM CDT HC NON-ONLINE EDITOR/THIN PREP 01/21/2021 10:04 AM CDT documented in [...] P jacinta Number [facility] [address] [place] [address] * COMPREHENSIVE METABOLIC PANEL (01/21/2021 11:52 AM [...] >60 >60 mL/min [facility] Comment: Gambian The eGFR is not validated f or use in drug dosing adjustments. Continue to use estimated creatinine clearance per dosing reference text. Please contact the Clinical Pharmacist for questions. eGFR >60 >60 mL/min MAIN LAB Gambian Comment: The eGFR is not validated for use in drug dosing adjustments. Continue to use estimated creatinine clearance per dosing reference text. Please contact the Clinical Pharmacist for questions. Specimen Blood Performing Organization Address City/State/ZIP Code P jacinta Number [facility] [address] [place] [address] * PROTIME INR (PT) (01/21/2021 11:52 AM CDT) INR 1.0 0.8 - 1.2 [facility] Specimen Blood Performing Organization Address City/State/ZIP Code P jacinta Number [facility] [address] [place] [address] * NON-ONLINE EDITOR CYTOLOGY (BODY FLUIDS/TISSUE) (01/21/2021 10:04 AM CDT) Cytology [facility] [email or web address] Department of Pathology and Laboratory Medicine [address] [place] [address] [place] [address] Surgical Pathology Office: [phone] CYTOLOGY REPORT NAME: LEIGHA FRIAS CYTOLOGY #: [id number] MR #: [id number] ALT ID #: HELEN #: [id number] LOCATION: [facility] DATE OF PROCEDURE: 01/21/2021 AGE: 85 [...] Code P jacinta Number MAIN LAB [address] [place] [address] documented in this encounter Visit Diagnoses Diagnosis [...]
--- OUTSIDE RECORDS SUMMARY | 2021-02-08 16:27 | XMS REPORT | Encounter Summary ---
Author Author [facility] Organization [facility] Address Unknown Phone Unavailable Care Team Providers Care Crane Hoist Or Lift Operator Name Role Phone Catherine Silva MD PCP [...]
--- OUTSIDE RECORDS SUMMARY | 2021-02-08 16:27 | XMS REPORT | Encounter Summary ---
Author Author [facility] Organization [facility] Address Unknown Phone Unavailable Care Team Providers Care Parts Department Supervisor Name Role Phone Catherine Silva MD PCP Ira Colunga 0945 Unavailable Marielena TrujilloFLOW TRADER 7 Liz Layton MD 25 Encounter Details Care Team Description Date Type Department Eugene Pedraza MD [address] [facility] [address] [place] [address] Encounter for pancreatic duct stent exch mateus (Primary Dx); Encounter for screening laboratory testing for COVID-19 virus in asymptomatic patient; Disease of biliary tract, unspecified 01/27/2021 Prep for Case Endoscopy: [facility] 4000 [facility] [address] [place] [address] Social History Date Tobacco Use [...]
--- OUTSIDE RECORDS SUMMARY | 2021-02-08 16:27 | XMS REPORT | Encounter Summary ---
Author Author [facility] Organization [facility] Address Unknown Phone Unavailable Care Team Providers Care Resident In Diagnostic Radiology Name Role Phone Catherine Silva MD PCP Reason for Visit * Auth/Cert Referred By Contact Referred To Contact Status Reason Specialty Diagnoses / Procedures Diagnoses Liver mass Liver mass [R16.0] P rocedures DE EGD INTRMURAL US NEEDLE ASPIRATE/BIOPSY ESOPHAGS DE ERCP DX COLLECTION SPECIMEN BRUSHING/WASHING ESOPHAGOGASTRODUOD ENOSCOPY WITH TRANSENDOSCOPIC ULTRASOUND GUIDED FINE NEEDLE ASPIRATION/ BIOPSY ENDOSCOPIC RETROGRADE CHOLANGIOPANCREATO GRAPHY Encounter Details Care Team Description Date Type Department Dudley Hampton MD [id number] [place], [place] [id number] 01/21/2021 Anesthesia Endoscopy: Main Cam pus, Event [facility] 4000 [facility] G[address] [place] [address] Anesthesia Record Responsible Anesthesiologist Anesthesia [...]
--- OUTSIDE RECORDS SUMMARY | 2021-02-08 16:27 | XMS REPORT | Encounter Summary ---
Author Author [facility] Organization [facility] Address Unknown Phone Unavailable Care Team Providers Care Contact Center Analyst Name Role Phone Catherine Silva MD PCP Reason for Visit * Auth/Cert Referred By Contact Referred To Contact Status Reason Specialty Diagnoses / Procedures Diagnoses Liver mass Liver mass [R16.0] P rocedures CO EGD INTRMURAL US NEEDLE ASPIRATE/BIOPSY ESOPHAGS CO ERCP DX COLLECTION SPECIMEN BRUSHING/WASHING ESOPHAGOGASTRODUOD ENOSCOPY WITH TRANSENDOSCOPIC ULTRASOUND GUIDED FINE NEEDLE ASPIRATION/ BIOPSY ENDOSCOPIC RETROGRADE CHOLANGIOPANCREATO GRAPHY Encounter Details Care Team Description Date Type Department Eugene Pedraza MD 4000 [facility] [address] [place] [address] ENDOSCOPIC RETROGRADE CHOLANGIOPANCREATO GRAPHY 01/21/2021 Surgery Endoscopy: [facility] 4000 [facility], [address] [place] [address] Surgery Details Trauma Case? Date/Time Status Location OR Service Patient Class Case Class Case Type 01/21/21 Posted [facility] Endo 2 Gastroente Outpatient Urgen t [...] or concerns after your procedure please call [phone] M-F 8am-5:00 pm. After 5:00 pm, holidays or weekends call [phone] a nd ask for the GI Doctor orchestra conductor. documented in this encounter Medications at Time [...] contact number for the outpatient lab is [phone] and is located on the 1st floor, directly to the left of the Information Desk. You must arrive by: 12:00 PM and check in at ADMISSIONS at [facility], [address] [place] [address], [place]., [address]. Your industrial truck driver will need to park in the [facility] garage. Please bring the parking ticket in with you. It will cost 3 dollars even if it is stamped. If you need to reschedule or if you have questions call [phone] between the hours of 7:30 AM and [...] scheduled procedure. b. If you have an customer service trainer test, take ONLY your essential morning medicatio ns (heart, blood pressure, seizure, etc.) with a small sip of water. 2. You will be sedated for the procedure. A responsible adult must drive you alexander e (no Uber, taxis, or buses are allowed). If you do not have a industrial truck driver we will be unable to [...] Please follow up with the office at [phone], to see if a return appointm ent [...] Relevant labs reviewed Dez Cunningham DO Pager [phone] documented in this encounter Plan of Treatment [...] without Covid swab if possible; [facility]: [facility] @ 1043 Called to prescreen [...] Code P jacinta Number MAIN LAB [address] [place] [address] * ERCP (01/21/2021 2:08 PM CDT) Provation Patient Name: Rodriguez NICHOLSON OTHER Report Pearl RESULTS Procedure Date: 01/21/2021 2:08 PM CSN: [id number] Date of : 1935 Gender: Female Attending Physician: Eugene Pedraza MD Procedure: ERCP Indications: Elevated liver enzymes, patient with liver mass on MRI and elevated CA19-9 >400 Providers: Eugene Pedraza MD (Doctor), Dez Cunningham (Fellow), Bernice Sawyer (Nurse), Brock Membreno, Mill Labor Supervisor (Mill Labor Supervisor) Referring Physician: Liz Layton Medications: General Anesthesia [...] verified by the physician, the nurse, the supervisor lead refinery and the collection systems technician in the endoscopy suite. Mental Status [...] and instead elected to place a 10 Somali/7 cm straight plastic biliary stent into the [...] and instead elected to place a 10 Somali/7 cm straight plastic biliary stent into the [...] 9 seconds Procedure Code(s): --- Professional --- 34602, Endoscopic retrograde cholangiopancreatography (ERCP); with placement of endoscopic stent into biliary or pancreatic duct, including pre- and post-dilation and guide wire passage, when performed, including sphincterotomy, when performed, each stent 39465, Endoscopic catheterization of the biliary ductal system, radiological supervision and interpretation Diagnosis Code(s): --- Professional --- R74.8, Abnormal levels of other serum enzymes CPT copyright 2020 [employer]. All rights reserved. The codes documented in this report are preliminary and upon refrigerating technician review may be revised to meet current [...] RESULTS Procedure Date: 01/21/2021 1:41 PM CSN: [id number] Date of : 1935 Gender: Female Attending Physician: Eugene Pedraza MD Procedure: Upper EUS Indications: Suspected mass in liver on MRI, Elevated CA 19-9, patient with 2.4 cm right medial/posterior lobe mass on MRI Providers: Eugene Pedraza MD (Doctor), Dez Cunningham (Fellow), Bernice Sawyer (Nurse), Brock Membreno, Mill Labor Supervisor (Mill Labor Supervisor) Referring Physician: Liz Layton Medications: General Anesthesia [...] verified by the physician, the nurse, the supervisor lead refinery and the collection systems technician in the endoscopy suite. Mental Status [...] 59 seconds Procedure Code(s): --- Professional --- 76556, Esophagogastroduodenoscopy, flexible, transoral; with endoscopic ultrasound examination limited to the esophagus, stomach or duodenum, and adjacent structures Diagnosis Code(s): --- Professional --- R97.8, Other abnormal tumor markers R93.2, Abnormal findings on diagnostic imaging of liver and biliary tract CPT copyright 2020 [employer]. All rights reserved. The codes documented in this report are preliminary and upon refrigerating technician review may be revised to meet current [...]
--- OUTSIDE RECORDS SUMMARY | 2021-02-08 16:27 | XMS REPORT | Encounter Summary ---
Author Author [facility] Organization [facility] Address Unknown Phone Unavailable Care Team Providers Care Electric Meter Installer Helper Name Role Phone Catherine Silva MD PCP Encounter Details Care Team Description Date Type Department Eugene Pedraza MD 4000 [facility] [address] [place] [address] 01/21/2021 Hospital Imaging: Angel rivas, [facility] 4000 [facility] [address] [place] [address] Social History Date Tobacco Use [...]
--- OUTSIDE RECORDS SUMMARY | 2021-02-08 16:27 | XMS REPORT | Encounter Summary ---
Author Author [facility] Organization [facility] Address Unknown Phone Unavailable Care Team Providers Care Sewer Inspector Name Role Phone Catherine Silva MD PCP Ira Colunga 8002 Unavailable Marielena TrujilloDIABETIC EDUCATOR 7 Liz Layton MD 25 Reason for Referral * Radiology Services (Routine) Referred By Contact Referred To Contact Status Reason Specialty Diagnoses / [place] [address] [place] [address] Wp Mri [address] [place] [address] Authorized Radiology Diagnoses Liver mass P rocedures MRI ABD WO/W CONTRAST Electronically signed by Liz Layton MD at Reason for Visit * Reason Comments Follow Up Encounter Details Care Team Description [place] [address] [place] [address] [phone] Liver mass (Primary Dx); Other abnormal tumor markers ; Elevated carcinoembryonic antigen (CEA) 02/02/2021 Office Visit Oncology: [address] [place] [address] Social History Date Tobacco Use Types Packs/Day [...] for urgent needs outside of business hours: [phone] Ask for the on-call Oncology fellow to be paged and they will call you back. Medication refills: please contact your pharmacy for medication refills, if they do not have any refills on file they will contact the office. Make sure they quevedo ve our correct contact information on file. P: [phone], F: [phone] SeGan Angel Printst Messages: All Cloudvu messages are answered by the nurses, even [...] [place]. She is now living with her daughter and in the mt d of moving , which stresses her [...] instea d elected to place a 10 Maltese/7 cm straight batsheva stic biliary stent into [...]
--- OUTSIDE RECORDS SUMMARY | 2021-02-08 16:28 | XMS REPORT | Encounter Summary ---
Author Author [facility] Organization [facility] Address Unknown Phone Unavailable Care Team Providers Care Contact Lens Manufacturer Name Role Phone Catherine Silva MD PCP Reason for Visit * Auth/Cert Referred By Contact Referred To Contact Status Reason Specialty Diagnoses / Procedures Diagnoses Liver mass Liver mass [R16.0] P rocedures ME EGD INTRMURAL US NEEDLE ASPIRATE/BIOPSY ESOPHAGS ME ERCP DX COLLECTION SPECIMEN BRUSHING/WASHING ESOPHAGOGASTRODUOD ENOSCOPY WITH TRANSENDOSCOPIC ULTRASOUND GUIDED FINE NEEDLE ASPIRATION/ BIOPSY ENDOSCOPIC RETROGRADE CHOLANGIOPANCREATO GRAPHY Encounter Details Care Team Description Date Type Department Eugene Pedraza MD 4000 [facility] PH[address] [place] [address] Liver mass 01/21/2021 Hospital Endoscopy: Main Kameron pus, Encounter [facility] 4000 [facility] [address] [place] [address] Social History Date Tobacco Use [...] or concerns after your procedure please call [phone] M-F 8am-5:00 pm. After 5:00 pm, holidays or weekends call [phone] a nd ask for the GI Doctor location manager. documented in this encounter Medications at Time [...] contact number for the outpatient lab is [phone] and is located on the 1st floor, directly to the left of the Information Desk. You must arrive by: 12:00 PM and check in at ADMISSIONS at [facility], [address] [place]., [address]. Your skidder driver will need to park in the [employer] Parking garage. Please bring the parking ticket in with you. It will cost 3 dollars even if it is stamped. If you need to reschedule or if you have questions call [phone] between the hours of 7:30 AM and [...] scheduled procedure. b. If you have an early childhood teacher test, take ONLY your essential morning medicatio ns (heart, blood pressure, seizure, etc.) with a small sip of water. 2. You will be sedated for the procedure. A responsible adult must drive you alexander e (no Uber, taxis, or buses are allowed). If you do not have a skidder driver we will be unable to do [...] Please follow up with the office at [phone], to see if a return appointm ent [...] Relevant labs reviewed Dez Cunningham DO Pager [phone] documented in this encounter Plan of Treatment [...] Code P jacinta Number MAIN LAB [address] [place] [address] * ERCP (01/21/2021 2:08 PM CDT) Provation Patient Name: Rodriguez NICHOLSON OTHER Report Pearl RESULTS Procedure Date: 01/21/2021 2:08 PM CSN: [id number] Date of : 1935 Gender: Female Attending Physician: Eugene Pedraza MD Procedure: ERCP Indications: Elevated liver enzymes, patient with liver mass on MRI and elevated CA19-9 >400 Providers: Eugene Pedraza MD (Doctor), Dez Cunningham (Fellow), Bernice Sawyer (Nurse), Brock Membreno Recreational Assistant (Recreational Assistant) Referring Physician: Liz Layton Medications: General Anesthesia [...] verified by the physician, the nurse, the mail carriers supervisor and the signals collection technician in the endoscopy suite. Mental Status [...] and instead elected to place a 10 Wallisian/7 cm straight plastic biliary stent into the [...] and instead elected to place a 10 Wallisian/7 cm straight plastic biliary stent into the [...] 9 seconds Procedure Code(s): --- Professional --- 18178, Endoscopic retrograde cholangiopancreatography (ERCP); with placement of endoscopic stent into biliary or pancreatic duct, including pre- and post-dilation and guide wire passage, when performed, including sphincterotomy, when performed, each stent 47386, Endoscopic catheterization of the biliary ductal system, radiological supervision and interpretation Diagnosis Code(s): --- Professional --- R74.8, Abnormal levels of other serum enzymes CPT copyright 2020 [employer]. All rights reserved. The codes documented in this report are preliminary and upon medical coder review may be revised to meet current [...] Pearl RESULTS Procedure Date: 01/21/2021 1:41 PM [facility]: [id number] Date of : 1935 Gender: Female Attending Physician: Eugene Pedraza MD Procedure: Upper EUS Indications: Suspected mass in liver on MRI, Elevated CA 19-9, patient with 2.4 cm right medial/posterior lobe mass on MRI Providers: Eugene Pedraza MD (Doctor), Dez Cunningham (Fellow), Bernice Sawyer (Nurse), Brock Memberno, Recreational Assistant (Recreational Assistant) Referring Physician: Liz Layton Medications: General Anesthesia [...] verified by the physician, the nurse, the mail carriers supervisor and the signals collection technician in the endoscopy suite. Mental Status [...] 59 seconds Procedure Code(s): --- Professional --- 51080, Esophagogastroduodenoscopy, flexible, transoral; with endoscopic ultrasound examination limited to the esophagus, stomach or duodenum, and adjacent structures Diagnosis Code(s): --- Professional --- R97.8, Other abnormal tumor markers R93.2, Abnormal findings on diagnostic imaging of liver and biliary tract CPT copyright 2020 [employer]. All rights reserved. The codes documented in this report are preliminary and upon medical coder review may be revised to meet current [...]
--- OUTSIDE RECORDS SUMMARY | 2021-02-08 16:28 | XMS REPORT | Encounter Summary ---
Author Author [facility] Organization [facility] Address Unknown Phone Unavailable Care Team Providers Care Wrecking Mechanic Name Role Phone No Pcp, Na PCP Unavailable Catherine Silva MD PCP Ira Colunga [phone] Unavailable Marielena Trujillo APRN-SAMANTHA 7 Liz Layton MD 25 Encounter Details Care Team Description Date Type Department Mendy Edwards PATIENT CARE PROVIDER-WET END HELPER [address] [facility] [address] [place] [address] Liver mass (Primary Dx) 01/06/2021 Prep for Case Gastroenterology: [facility], [facility] [address], [address] [address] Social History Date Tobacco Use [...]
[2021-02-08] MEDS ORDERED: FAMOTIDINE 20 MG (PEPCID) TABLET PO STA (16:58)
--- NOTE | 2021-02-08 16:58 | ED General ---
General Chief Complaint: General Problems/Pain Stated Complaint: ABNORMAL LABS Nursing Triage Note: PT TO ROOM VIA W/C WITH C/O INFECTION. PT STATES THAT SHE WAS CONTACTED AND INFORMED THAT SHE SHOULD RETURN TO THE ED FOR FURTHER EVALUATION AND POSSIBLE ADMISSION TO HOSPITAL. Source of Information: Patient, Family (daughter) Exam Limitations: No Limitations History of Present Illness Date Seen by Provider: Feb 08, 2021 Time Seen by Provider: 16:26 Initial Comments Patient to the ER by private conveyance with her daughter and chief complaint she is had rigors for couple hours last night. She was here yesterday for fever of 101.2 of unknown origin. Today she had preliminary cultures urine and blood come back positive both tubes. She has not taken any antipyretics today. She did receive fluids and antibiotics yesterday which perked her up. She was very lethargic yesterday according to her daughter. She recently moved here and does not have a primary care provider. She was being worked up at for some kind of a mass on her liver which was never seen but instead when they did an ERCP at apparently they did some brushings which were negative for cancer cells and put a stent in her pancreatic duct. Allergies and Home Medications Allergies Coded Allergies: No Known Drug Allergies (Unverified , 02/07/21) Patient Home Medication List Home Medication List Reviewed: Yes Review of Systems Review of Systems Constitutional: chills, fever (Yesterday), malaise, weakness EENTM: No ear discharge, No ear pain Respiratory: No cough, No phlegm Cardiovascular: No chest pain, No edema Gastrointestinal: abdominal pain; No constipation, No diarrhea, No nausea, No vomiting Genitourinary: No discharge; dysuria; No frequency, No hematuria Musculoskeletal: No back pain, No joint pain Skin: No pruritus, No rash All Other Systems Reviewed Negative Unless Noted: Yes Past Rgfhvxz-Yepnzr-Cfbwuu Hx Patient Social History Tobacco Use?: No Use of E-Cig and/or Vaping dev: No Alcohol Use?: No Immunizations Up To Date First/Initial COVID19 Vaccinat: JUN 2020 Second COVID19 Vaccination John: JULY 2020 Physical Exam Vital Signs Vital Signs - First Documented 02/08/21 16:45 Temp 36.9 Pulse 77 Resp 18 B/P (MAP) 115/64 (81) O2 Delivery Room Air Capillary Refill : Less Than 3 Seconds Height, Weight, BMI Height: '" Weight: lbs. oz. kg; 31.00 BMI Method: General Appearance: No Apparent Distress, WD/WN Eyes: Bilateral Eye Normal Inspection, Bilateral Eye PERRL, Bilateral Eye EOMI HEENT: PERRL/EOMI, Pharynx Normal, Moist Mucous Membranes Neck: Full Range of Motion, Normal Inspection Respiratory: Lungs Clear, Normal Breath Sounds, No Accessory Muscle Use, No Respiratory Distress Cardiovascular: Regular Rate, Rhythm, No Edema Gastrointestinal: Normal Bowel Sounds, Non Tender, Soft Extremity: Normal Capillary Refill, Normal Inspection, No Pedal Edema Neurologic/Psychiatric: Alert, Oriented x3, No Motor/Sensory Deficits Skin: Normal Color, Warm/Dry Progress/Results/Core Measures Suspected Sepsis SIRS Temperature: Pulse: 77 Respiratory Rate: 18 Laboratory Tests 02/08/21 17:00: White Blood Count 10.5 Blood Pressure 115 /64 Mean: 81 Laboratory Tests 02/08/21 17:00: Creatinine 1.22, Platelet Count 151, Total Bilirubin 1.3H Results/Orders Lab Results Laboratory Tests Test 02/08/21 16:53 02/08/21 17:00 Range/Units Urine Color YELLOW Urine Clarity CLEAR Urine pH 5.5 5-9 Urine Specific [place] 1.025 H 1.016-1.022 Urine Protein 1+ H NEGATIVE Urine Glucose (UA) TRACE H NEGATIVE Urine Ketones TRACE H NEGATIVE Urine Nitrite POSITIVE H NEGATIVE Urine Bilirubin 2+ H NEGATIVE Urine Urobilinogen 1.0 < = 1.0 MG/DL Urine Leukocyte Esterase TRACE H NEGATIVE Urine RBC (Auto) 1+ H NEGATIVE Urine RBC 2-5 H /HPF Urine WBC 10-25 H /HPF Urine Squamous Epithelial Cells 10-25 H /HPF Urine Crystals PRESENT H /LPF Urine Amorphous Sediment LARGE ADRIAN URATES H /LPF Urine Bacteria MODERATE H /HPF Urine Casts NONE /LPF Urine Mucus NEGATIVE /LPF Urine Culture Indicated YES White Blood Count 10.5 4.3-11.0 10^3/uL Red Blood Count 4.17 3.80-5.11 10^6/uL Hemoglobin 13.1 11.5-16.0 g/dL Hematocrit 39 35-52 % Mean Corpuscular Volume 94 80-99 fL Mean Corpuscular Hemoglobin 31 25-34 pg Mean Corpuscular Hemoglobin Concent 34 32-36 g/dL Red Cell Distribution Width 13.9 10.0-14.5 % Platelet Count 151 130-400 10^3/uL Mean Platelet Volume 10.8 9.0-12.2 fL Immature Granulocyte % (Auto) 0 % Neutrophils (%) (Auto) 87 H 42-75 % Lymphocytes (%) (Auto) 6 L 12-44 % Monocytes (%) (Auto) 7 0-12 % Eosinophils (%) (Auto) 0 0-10 % Basophils (%) (Auto) 0 0-10 % Neutrophils # (Auto) 9.1 H 1.8-7.8 10^3/uL Lymphocytes # (Auto) 0.7 L 1.0-4.0 10^3/uL Monocytes # (Auto) 0.7 0.0-1.0 10^3/uL Eosinophils # (Auto) 0.0 0.0-0.3 10^3/uL Basophils # (Auto) 0.0 0.0-0.1 10^3/uL Immature Granulocyte # (Auto) 0.0 0.0-0.1 10^3/uL Neutrophils % (Manual) 78 % Lymphocytes % (Manual) 5 % Monocytes % (Manual) 12 % Band Neutrophils 5 % Blood Morphology Comment NORMAL Sodium Level 130 L 135-145 MMOL/L Potassium Level 3.7 3.6-5.0 MMOL/L Chloride Level 95 L 98-107 MMOL/L Carbon Dioxide Level 25 21-32 MMOL/L Anion Gap 10 5-14 MMOL/L Blood Urea Nitrogen 23 H 7-18 MG/DL Creatinine 1.22 0.60-1.30 MG/DL Estimat Glomerular Filtration Rate 42 BUN/Creatinine Ratio 19 Glucose Level 109 H 70-105 MG/DL Calcium Level 9.6 8.5-10.1 MG/DL Corrected Calcium 9.8 8.5-10.1 MG/DL Total Bilirubin 1.3 H 0.1-1.0 MG/DL Aspartate Amino Transf (AST/SGOT) 36 H 5-34 U/L Alanine Aminotransferase (ALT/SGPT) 46 0-55 U/L Alkaline Phosphatase 165 H 40-136 U/L C-Reactive Protein High Sensitivity 20.68 H 0.00-0.50 MG/DL Total Protein 6.9 6.4-8.2 GM/DL Albumin 3.7 3.2-4.5 GM/DL Lipase 26 8-78 U/L My Orders Orders - CONSTANCE FU Cbc With Automated Diff (02/08/21 16:53) Comprehensive Metabolic Panel (02/08/21 16:53) Hs C Reactive Protein (02/08/21 16:53) Ed Iv/Invasive Line Start (02/08/21 16:53) Lactated Ringers (Lr 1000 Ml Iv Solution (02/08/21 17:00) Cefepime Injection (Maxipime Injection) (02/08/21 17:00) Vancomycin Injection (Vancomycin Injecti (02/08/21 17:00) Blood Culture (02/08/21 16:53) Lipase (02/08/21 16:58) Lidocaine 2% Viscous 15 Ml (Xylocaine Vi (02/08/21 17:00) Famotidine Tablet (Pepcid Tablet) (02/08/21 16:58) Antacid Suspension (Mylanta Suspension (02/08/21 17:00) Manual Differential (02/08/21 17:00) Medications Given in ED Current Medications Medications Dose Ordered Sig/Rosana Route Start Time Stop Time Status Last Admin Dose Admin Al Hydrox/Mg Hydrox/Simethicone 30 ml ONCE ONCE PO 02/08/21 17:00 02/08/21 17:01 DC 02/08/21 17:27 30 ML Cefepime HCl 1000 mg/Sterile Water 10 ml @ 200 mls/hr ONCE ONCE IV 02/08/21 17:00 02/08/21 17:02 DC 02/08/21 17:26 200 MLS/HR Lactated Ringer's 1,000 ml @ 0 mls/hr Q0M ONCE IV 02/08/21 17:00 02/08/21 17:01 DC 02/08/21 17:27 999 MLS/HR Lidocaine HCl 15 ml ONCE ONCE PO 02/08/21 17:00 02/08/21 17:01 DC 02/08/21 17:27 15 ML Vancomycin HCl 1500 mg/Sodium Chloride 500 ml @ 257 mls/hr ONCE ONCE IV 02/08/21 17:00 02/08/21 18:56 02/08/21 17:28 257 MLS/HR Vital Signs/I&O 02/08/21 16:45 Temp 36.9 Pulse 77 Resp 18 B/P (MAP) 115/64 (81) O2 Delivery Room Air Capillary Refill : Less Than 3 Seconds Blood Pressure Mean: 81 Progress Note : Time: 17:51 Progress Note Rocephin for bacteremia coverage. Departure Communication (Admissions) Time/Spoke to Admitting Phy: 17:51 Discussed the case with Dr. Crane and he agrees with Rocephin 2 g IV every 24 hours, Lovenox and placement on the floor for bacteremia of uncertain origin. Could be from UTI or could be related to the GI tract since she recently had m echanical instrumentation with a stent placed in the pancreatic duct. Impression Primary Impression: Urinary tract infection Qualified Codes: N30.01 - Acute cystitis with hematuria Additional Impression: Bacteremia Disposition: ADMITTED INPATIENT Condition: Stable Admissions Decision to Admit Reason: Admit from ER (General) Decision to Admit/Date: Feb 08, 2021 Time/Decision to Admit Time: 17:48 Departure-Patient Inst. Referrals: NO,LOCAL PHYSICIAN (PCP/Family) Primary Care Physician CONSTANCE FU Feb 08, 2021 16:58
[2021-02-08 17:00] LABS: CLARITY,URINE CLEAR; COLOR,URINE YELLOW; GLUCOSE, URINE (UA) TRACE (NEGATIVE); KETONES,URINE TRACE (NEGATIVE); LEUKOCYTE ESTERASE ,URINE TRACE (NEGATIVE); NITRITE,URINE POSITIVE (NEGATIVE); PH,URINE 5.5 (5-9); PROTEIN,URINE 1+ (NEGATIVE)
[2021-02-08] MEDS ORDERED: LACTATED RINGERS 1,000 ML IV ONE (17:00)
[2021-02-08] MEDS ORDERED: LIDOCAINE 2% VISCOUS 15 ML UDC PO ONE (17:00)
[2021-02-08] MEDS ORDERED: VANCOMYCIN INJECTION 1,500 MG in NS IV 500 ML 500 ML IV ONE (17:00)
[2021-02-08] MEDS ORDERED: ANTACID SUSP 30 ML UDC (MYLANTA) PO ONE (17:00)
[2021-02-08] MEDS ORDERED: CEFEPIME INJECTION 1,000 MG in WATER (STERILE) FOR INJECTION 10 ML IV ONE (17:00)
[2021-02-08 17:13] LABS: BASOPHILS % (AUTO) 0 % (0-10); EOSINOPHILS % (AUTO) 0 % (0-10); HEMATOCRIT 39 % (35-52); HEMOGLOBIN 13.1 g/dL (11.5-16.0); LYMPHOCYTES # (AUTO) 0.7 10^3/uL (1.0-4.0); LYMPHOCYTES % (AUTO) 6 % (12-44); MEAN CORPUSCULAR HEMOGLOBIN 31 pg (25-34); MEAN CORPUSCULAR HGB CONC 34 g/dL (32-36); MEAN CORPUSCULAR VOLUME 94 fL (80-99); MEAN PLATELET VOLUME 10.8 fL (9.0-12.2); MONOCYTES # (AUTO) 0.7 10^3/uL (0.0-1.0); MONOCYTES % (AUTO) 7 % (0-12); NEUTROPHILS # (AUTO) 9.1 10^3/uL (1.8-7.8); NEUTROPHILS % (AUTO) 87 % (42-75); PLATELET COUNT 151 10^3/uL (130-400); WHITE BLOOD COUNT 10.5 10^3/uL (4.3-11.0)
[2021-02-08 17:15] LABS: BACTERIA,URINE MODERATE /HPF
[2021-02-08 17:17] LABS: AMORPHOUS SEDIMENT,UR LARGE AMOR URATES /LPF
[2021-02-08 17:19] LABS: BILIRUBIN,URINE 2+ (NEGATIVE)
[2021-02-08 17:24] LABS: ALBUMIN 3.7 GM/DL (3.2-4.5); POTASSIUM 3.7 MMOL/L (3.6-5.0)
[2021-02-08 17:26] LABS: CALCIUM 9.6 MG/DL (8.5-10.1)
[2021-02-08 17:27] LABS: TOTAL PROTEIN 6.9 GM/DL (6.4-8.2)
[2021-02-08 17:29] LABS: BILIRUBIN,TOTAL 1.3 MG/DL (0.1-1.0)
[2021-02-08 17:31] LABS: CREATININE SERUM 1.22 MG/DL (0.60-1.30)
[2021-02-08 17:50] LABS: BAND NEUTROPHILS 5 %; LYMPHOCYTES % (MANUAL) 5 %; MONOCYTES % (MANUAL) 12 %; NEUTROPHILS % (MANUAL) 78 %; RBC MORPH NORMAL
[2021-02-08 19:00] VITALS: BP 124/69
[2021-02-08] MEDS ORDERED: ONDANSETRON 4 MG/2 ML (SDV) Z0FRAN IV PRN (19:00)
[2021-02-08] MEDS ORDERED: BISACODYL 10 MG SUPP (DULCOLAX) PR PRN (19:00)
[2021-02-08] MEDS ORDERED: ONDANSETRON 4 MG (ZOFRAN) ORAL DISSOLVE TAB PO PRN (19:00)
[2021-02-08] MEDS ORDERED: polyethylene glycoL POWDER 17 GM (MIRALAX) PACK PO PRN (19:00)
[2021-02-08] MEDS ORDERED: ANTACID SUSP 30 ML UDC (MYLANTA) PO PRN (19:00)
[2021-02-08] MEDS ORDERED: MELATONIN 3 MG TABLET PO PRN (19:00)
[2021-02-08] MEDS: DOCUSATE SODIUM 100 MG (COLACE) CAP PO SCH (20:17)
[2021-02-08] MEDS: SENNOSIDES 8.6 MG (SENOKOT) TAB PO SCH (20:17)
[2021-02-08] MEDS: ENOXAPARIN 40 MG/0.4 ML (LOVENOX) SYR SC SCH (20:17)
[2021-02-08] MEDS: ACETAMINOPHEN 325 MG TABLET PO PRN (20:17)
[2021-02-08] MEDS: LACTATED RINGERS 1,000 ML IV SCH (20:17)
[2021-02-08] MEDS: cefTRIAXone 2,000 MG in WATER (STERILE) FOR INJECTION 20 ML IV SCH (20:18)
[2021-02-08 23:42] VITALS: BP 110/55
[2021-02-09] MEDS: LACTATED RINGERS 1,000 ML IV SCH ×3 (02:54→17:34)
[2021-02-09 03:37] VITALS: BP 108/48
[2021-02-09 06:06] LABS: BASOPHILS % (AUTO) 1 % (0-10); EOSINOPHILS % (AUTO) 0 % (0-10); HEMATOCRIT 33 % (35-52); HEMOGLOBIN 11.1 g/dL (11.5-16.0); LYMPHOCYTES # (AUTO) 0.8 10^3/uL (1.0-4.0); LYMPHOCYTES % (AUTO) 12 % (12-44); MEAN CORPUSCULAR HEMOGLOBIN 32 pg (25-34); MEAN CORPUSCULAR HGB CONC 34 g/dL (32-36); MEAN CORPUSCULAR VOLUME 94 fL (80-99); MEAN PLATELET VOLUME 12.4 fL (9.0-12.2); MONOCYTES # (AUTO) 0.7 10^3/uL (0.0-1.0); MONOCYTES % (AUTO) 9 % (0-12); NEUTROPHILS # (AUTO) 5.5 10^3/uL (1.8-7.8); NEUTROPHILS % (AUTO) 78 % (42-75); PLATELET COUNT 97 10^3/uL (130-400); WHITE BLOOD COUNT 7.1 10^3/uL (4.3-11.0)
[2021-02-09 06:13] LABS: POTASSIUM 3.7 MMOL/L (3.6-5.0)
[2021-02-09 06:14] LABS: CALCIUM 8.6 MG/DL (8.5-10.1)
[2021-02-09 06:19] LABS: CREATININE SERUM 0.69 MG/DL (0.60-1.30)
[2021-02-09] MEDS ORDERED: LEVOTHYROXINE 25 MCG (LEVOTHROID) TAB PO SCH (06:30)
[2021-02-09 07:59] VITALS: BP 133/63
[2021-02-09] MEDS: DOCUSATE SODIUM 100 MG (COLACE) CAP PO SCH ×2 (08:52→21:35)
[2021-02-09] MEDS: SENNOSIDES 8.6 MG (SENOKOT) TAB PO SCH ×2 (08:52→21:36)
[2021-02-09] MEDS ORDERED: VITA400C60 PO (10:55)
[2021-02-09] MEDS ORDERED: CHOL100045 PO (10:55)
[2021-02-09] MEDS ORDERED: OMEG-109 PO (10:55)
[2021-02-09] MEDS ORDERED: CYAN500T8 PO (10:55)
[2021-02-09] MEDS ORDERED: LEVO75TA6 PO (10:55)
[2021-02-09] MEDS ORDERED: NFBIOT1000 PO (10:55)
[2021-02-09] MEDS ORDERED: CALC-823 PO (10:55)
[2021-02-09] MEDS ORDERED: LOSA50TA63 PO (10:55)
[2021-02-09] MEDS ORDERED: ASCO500C17 PO (10:55)
[2021-02-09] MEDS ORDERED: ASCO1TAB42 PO (10:55)
[2021-02-09] MEDS ORDERED: ASPI-1238 PO (10:55)
[2021-02-09] MEDS ORDERED: AMLO-250 PO (10:55)
[2021-02-09] MEDS ORDERED: VITA80006 PO (10:55)
[2021-02-09 12:00] VITALS: BP 123/60
[2021-02-09] MEDS: ACETAMINOPHEN 325 MG TABLET PO PRN (13:42)
[2021-02-09 16:00] VITALS: BP 132/60
--- NOTE | 2021-02-09 16:20 | History & Physical-Hospitalist ---
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 She had been in the ER the previous day due to confusion. She received a dose of Rocephin and fluids and improved and was sent home without an identified source of infection. The next day her blood cultures turned positive and she was called to return. She reports fevers and chills. She denies shortness of breath and cough. She denies chest pain and palpitations. She had some nausea and vomiting a few days ago. She reports abdominal pain and bloating . She reports urinary urgency. Source: patient Exam Limitations: no limitations Date Seen 02/09/21 Time Seen by a Provider: 10:10 Attending Physician Kayy Murphy MD PCP No,Local Physician Referring Physician Date of Admission Feb 08, 2021 at 17:57 Home Medications & Allergies Home Medications Reviewed patient Home Medication Reconciliation performed by pharmacy medication reconciliations tattoo technician and/or nursing. Patients Allergies have been reviewed. Allergies Allergies Coded Allergies No Known Drug Allergies (Unverified02/07/21) Past Rhccfcu-Sbvaqg-Smzwyi Hx Patient Social History Tobacco Use?: No Smoking Status: Former Smoker Smokeless Tobacco Frequency: Former User Use of E-Cig and/or Vaping dev: No Substance use?: No Alcohol Use?: Yes Alcohol type: Wine Alcohol Frequency: Once in a while Pt feels they are or have been: No Immunizations Up To Date First/Initial COVID19 Vaccinat: 06/2020 Second COVID19 Vaccination John: 07/2020 Tetanus Booster (TDap): Unknown Current Status status: No status: No Advance Directives: No Communicates: Verbally Primary Language: Portuguese Preferred Spoken Language: Portuguese Is interpretation needed?: No Sensory deficits: Vision impairment Implanted or Applied Medical D: Stents Past Medical History Hypertension Hypothyroidsim Family Medical History No Pertinent Family Hx Review of Systems Constitutional: chills, fever, malaise EENTM: no symptoms reported Respiratory: no symptoms reported Cardiovascular: no symptoms reported Gastrointestinal: nausea, vomiting Genitourinary: other (urgency) Musculoskeletal: no symptoms reported Skin: no symptoms reported Psychiatric/Neurological: Other (confusion) Physical Exam Physical Exam Vital Signs Vital Signs - First Documented 02/08/21 02/08/21 16:45 19:00 Temp 36.9 Pulse 77 Resp 18 B/P (MAP) 115/64 (81) Pulse Ox 99 O2 Delivery Room Air Capillary Refill : Less Than 3 Seconds Height, Weight, BMI Height: '" Weight: lbs. oz. kg; 31.11 BMI Method: General Appearance: No Apparent Distress, Anxious, Obese HEENT: PERRL/EOMI, Pharynx Normal Neck: Normal Inspection, Supple Respiratory: Lungs Clear, Normal Breath Sounds, No Respiratory Distress Cardiovascular: Regular Rate, Rhythm, No Edema, No Murmur Gastrointestinal: Normal Bowel Sounds, Non Tender, Soft Extremity: Normal Inspection, Non Tender, No Pedal Edema Neurologic/Psychiatric: Alert, Oriented x3, No Motor/Sensory Deficits Skin: Normal Color, Warm/Dry Results Results/Procedures Labs Laboratory Tests 02/08/21 17:00 02/09/21 05:35 Patient resulted labs reviewed. Imaging: Reviewed Imaging Report Assessment/Plan Admission Diagnosis Klebsiella pneumonia bacteremia Admission Status: Inpatient Order (span 2 midnights) Reason for Inpatient Admission: IV antibiotics Assessment and Plan Klebsiella pneumoniae bacteremia E coli UTI Urine culture 02/07 with E coli Repeat urine culture 02/08 with no growth Blood cultures 02/07 positive for Klebsiella Repeat blood cultures 02/08 with no growth Possibly due to UTI vs recent biliary instrumentation Rocephin Pancreatic duct stent Sphincter of Oddi dysfunction Stent in place T bili midly elevated, monitor JOSE ALBERTO Cr 1.22 on arrival, improved to 0.69 IV fluids Thrombocytopenia Platelets 97 Likely due to gram negative bacteremia Monitor Hyponatremia Mild, improved, monitor GERD Begin Protonix Anxiety Depression Begin Celexa HTN Hypothyroidism Continue home meds DVT prophylaxis: Lovenox Diagnosis/Problems Diagnosis/Problems (1) Bacteremia due to Klebsiella pneumoniae Status: Acute (2) E. coli UTI Status: Acute (3) Presence of pancreatic duct stent Status: Acute (4) Sphincter of Oddi dysfunction Status: Acute (5) Anxiety and depression Status: Acute (6) JOSE ALBERTO (acute kidney injury) Status: Acute (7) Thrombocytopenia (8) Hyponatremia Status: Acute (9) HTN (hypertension) Status: Chronic (10) Hypothyroidism Status: Chronic (11) GERD (gastroesophageal reflux disease) Status: Acute KAYY MURPHY MD Feb 09, 2021 16:20
[2021-02-09] MEDS ORDERED: PANTOPRAZOLE 40 MG (PROTONIX) TAB PO NR (16:30)
[2021-02-09] MEDS ORDERED: CATHETER FLUSH 10 ML SYR IV PRN (16:45)
[2021-02-09] MEDS: cefTRIAXone 2,000 MG in WATER (STERILE) FOR INJECTION 20 ML IV SCH (18:22)
[2021-02-09] MEDS: ENOXAPARIN 40 MG/0.4 ML (LOVENOX) SYR SC SCH (18:24)
[2021-02-09 19:46] VITALS: BP 129/60
[2021-02-09 23:27] VITALS: BP_SYST 139; BP_SYST 155; BP_DIAS 63; BP_DIAS 92
[2021-02-10] MEDS: LACTATED RINGERS 1,000 ML IV SCH ×2 (02:01→08:40)
[2021-02-10 03:31] VITALS: BP 127/58
[2021-02-10] MEDS ORDERED: LEVOTHYROXINE 75 MCG (LEVOTHROID) TABLET PO SCH (06:30)
[2021-02-10] MEDS ORDERED: LEVOTHYROXINE 25 MCG (LEVOTHROID) TAB PO SCH (06:30)
[2021-02-10 07:19] VITALS: BP 136/63
[2021-02-10 08:17] LABS: BASOPHILS % (AUTO) 0 % (0-10); EOSINOPHILS % (AUTO) 1 % (0-10); LYMPHOCYTES % (AUTO) 14 % (12-44); MEAN CORPUSCULAR VOLUME 93 fL (80-99)
[2021-02-10 08:19] LABS: HEMATOCRIT 31 % (35-52); HEMOGLOBIN 10.3 g/dL (11.5-16.0); MEAN CORPUSCULAR HEMOGLOBIN 31 pg (25-34); MEAN CORPUSCULAR HGB CONC 33 g/dL (32-36); MEAN PLATELET VOLUME 11.7 fL (9.0-12.2); MONOCYTES # (AUTO) 0.5 10^3/uL (0.0-1.0); MONOCYTES % (AUTO) 8 % (0-12); NEUTROPHILS # (AUTO) 5.4 10^3/uL (1.8-7.8); NEUTROPHILS % (AUTO) 77 % (42-75); PLATELET COUNT 101 10^3/uL (130-400); WHITE BLOOD COUNT 6.9 10^3/uL (4.3-11.0)
[2021-02-10 08:34] LABS: CALCIUM 8.4 MG/DL (8.5-10.1); CREATININE SERUM 0.61 MG/DL (0.60-1.30); POTASSIUM 3.4 MMOL/L (3.6-5.0)
[2021-02-10] MEDS: DOCUSATE SODIUM 100 MG (COLACE) CAP PO SCH (08:39)
[2021-02-10] MEDS: SENNOSIDES 8.6 MG (SENOKOT) TAB PO SCH (08:39)
[2021-02-10] MEDS ORDERED: PANTOPRAZOLE 40 MG (PROTONIX) TAB PO SCH (09:00)
[2021-02-10] MEDS ORDERED: CEFD300C3 PO (10:50)
[2021-02-10 11:10] VITALS: BP 123/58
[2021-02-10 12:00] VITALS: BP 123/58
--- NOTE | 2021-02-10 12:24 | Discharge Summary ---
Discharge Summary Hospital Course Was the Problem List Reviewed?: Yes Problems/Dx: (1) Bacteremia due to Klebsiella pneumoniae Status: Acute (2) E. coli UTI Status: Acute (3) Presence of pancreatic duct stent Status: Acute (4) Sphincter of Oddi dysfunction Status: Acute (5) Anxiety and depression Status: Acute (6) JOSE ALBERTO (acute kidney injury) Status: Acute (7) Thrombocytopenia (8) Hyponatremia Status: Acute (9) HTN (hypertension) Status: Chronic (10) Hypothyroidism Status: Chronic (11) GERD (gastroesophageal reflux disease) Status: Acute Hospital Course Date of Admission: Feb 08, 2021 at 17:57 Admission Diagnosis : Klebsiella pneumonia bacteremia Family Physician/Provider: Sonya Benson Physician Date of Discharge: 02/10/21 Discharge Diagnosis: Klebsiella pneumonia bacteremia, E. coli UTI Hospital Course: Pearl Frias is an 85-year-old female who was admitted with Klebsiella pneumonia bacteremia. She had been in the emergency room the day before with confusion and was given IV antibiotics and improved and was discharged home. Her blood cultures turned positive and she was called back to the emergency room. She was found to have a urinary tract infection with E. coli. She recently moved to [place] from [place]. Her primary care doctor, Dr. iSlva, had found a suspicious liver lesion on an MRI. He referred her to an oncologist and she had a biopsy performed. She says this was benign. She did undergo an ERCP and had a stent placed due to what sounds like sphincter of Oddi dysfunction. She has a follow-up with her oncologist, Dr. Layton, scheduled in a couple weeks. She needs to establish care with a new primary care physician and is filling out paperwork to get in with Dr. Manuel. She will complete a course of Omnicef as an outpatient. She was discharged home in stable condition. Labs and Pending Lab Test: Laboratory Tests 02/10/21 08:10: White Blood Count 6.9, Red Blood Count 3.32L, Hemoglobin 10.3L, Hematocrit 31L, Mean Corpuscular Volume 93, Mean Corpuscular Hemoglobin 31, Mean Corpuscular Hemoglobin Concent 33, Red Cell Distribution Width 13.6, Platelet Count 101L, Mean Platelet Volume 11.7, Immature Granulocyte % (Auto) 0, Neutrophils (%) (Auto) 77H, Lymphocytes (%) (Auto) 14, Monocytes (%) (Auto) 8, Eosinophils (%) (Auto) 1, Basophils (%) (Auto) 0, Neutrophils # (Auto) 5.4, Lymphocytes # (Auto) 1.0, Monocytes # (Auto) 0.5, Eosinophils # (Auto) 0.0, Basophils # (Auto) 0.0, Immature Granulocyte # (Auto) 0.0, Percent Immature Platelet Fraction 6.0, Sodium Level 136, Potassium Level 3.4L, Chloride Level 104, Carbon Dioxide Level 24, Anion Gap 8, Blood Urea Nitrogen 7, Creatinine 0.61, Estimat Glomerular Filtration Rate 93, BUN/Creatinine Ratio 11, Glucose Level 100, Calcium Level 8.4L Microbiology 02/08/21 Blood Culture - Preliminary, Resulted No growth 02/08/21 Urine Culture - Final, Complete NO GROWTH Home Meds Active Cefdinir 300 Mg Capsule 300 Mg PO BID 10 Days Reported Aspirin EC (Aspirin) 81 Mg Tablet.dr 81 Mg PO 1400 Elderberry-Vit C 50-100 mg Chw (Ascorbic Acid/Elderberry Fruit) 1 Each Tab.chew 1 Each PO HS Fish Oil 1,200 mg Softgel ([place]-3 Fatty Acids/Fish Oil) 1 Each Capsule 1 Each PO HS Vitamin E (Vitamin E Acetate) 400 Unit Capsule 400 Unit PO HS Calcium (Calcium Carbonate) 500 Mg Tablet 500 Mg PO HS Vitamin D3 (Cholecalciferol (Vitamin D3)) 25 Mcg Tablet 25 Mcg PO HS Vitamin C (Ascorbic Acid) 500 Mg Capsule 500 Mg PO HS Biotin 1,000 Mcg Tablet 1,000 Mcg PO HS Vitamin B-12 (Cyanocobalamin (Vitamin B-12)) 500 Mcg Tablet 500 Mcg PO HS Vitamin A 2,400 Mcg Capsule 2,400 Mcg PO HS Losartan Potassium 50 Mg Tablet 50 Mg PO 1400 Amlodipine Besylate 5 Mg Tablet 5 Mg PO 1400 Levothyroxine Sodium 75 Mcg Tablet 75 Mcg PO DAILY Assessment/Pt Instructions Take medications as prescribed. Complete your course of antibiotics even if you are feeling better. Establish care with a new primary care physician. Return with worsening confusion or if you feel like you are getting worse. Discharge Planning: <30 minutes discharge planning Discharge Instructions Discharge Diet: No Restrictions Activity as Tolerated: Yes Discharge Physical Examination Vital Signs Vital Signs Date Time Temp Pulse Resp B/P (MAP) Pulse Ox O2 Delivery O2 Flow Rate FiO2 02/10/21 12:00 37.1 63 18 123/58 95 Room Air General Appearance: No Apparent Distress, Obese HEENT: PERRL/EOMI, Pharynx Normal Respiratory: Lungs Clear, Normal Breath Sounds, No Respiratory Distress Cardiovascular: Regular Rate, Rhythm, No Edema, No Murmur Gastrointestinal: Normal Bowel Sounds, Non Tender, Soft Extremity: Normal Inspection, Non Tender, No Pedal Edema Skin: Normal Color, Warm/Dry Neurologic/Psychiatric: Alert, Oriented x3, No Motor/Sensory Deficits, Normal Mood/Affect Allergies: Coded Allergies: No Known Drug Allergies (Unverified , 02/07/21) Copy Copies To 1: HALEY MANUEL DO Discharge Summary Date of Admission Feb 08, 2021 at 17:57 Date of Discharge Discharge Date: Feb 10, 2021 Discharge Time: 12:22 Admission Diagnosis Klebsiella pneumonia bacteremia Discharge Diagnosis Klebsiella pneumoniae bacteremia E coli UTI (1) Bacteremia due to Klebsiella pneumoniae Status: Acute (2) E. coli UTI Status: Acute (3) Presence of pancreatic duct stent Status: Acute (4) Sphincter of Oddi dysfunction Status: Acute (5) Anxiety and depression Status: Acute (6) JOSE ALBERTO (acute kidney injury) Status: Acute (7) Thrombocytopenia (8) Hyponatremia Status: Acute (9) HTN (hypertension) Status: Chronic (10) Hypothyroidism Status: Chronic (11) GERD (gastroesophageal reflux disease) Status: Acute KAYY MURPHY MD Feb 10, 2021 12:21
[2021-02-10] MEDS ORDERED: amLODIPine 5 MG (NORVASC) TAB PO SCH (14:00)
[2021-02-10] MEDS ORDERED: LOSARTAN 50 MG (COZAAR) TAB PO SCH (14:00)
[2021-02-10] MEDS ORDERED: ASPIRIN E.C. 81 MG (ECOTRIN) TAB PO SCH (14:00)
== END 2021-02-10 11:55 | disposition home or self-care (01) | DRG 872 ==
LOC: EDUNIT# 16:21 → ER 16:22 → 4TH 17:57
PROVIDERS: ADMIT Internal Medicine; ATTEND Internal Medicine
DX: R78.81 Bacteremia (principal); N39.0 Urinary tract infection, site not specified; N17.9 Acute kidney failure, unspecified; E87.1 Hypo-osmolality and hyponatremia; B96.1 Klebsiella pneumoniae [K. pneumoniae] as the cause of diseases classified elsewhere; B96.20 Unspecified Escherichia coli [E. coli] as the cause of diseases classified elsewhere; D69.6 Thrombocytopenia, unspecified; I10 Essential (primary) hypertension; E03.9 Hypothyroidism, unspecified; F03.90 Unspecified dementia, unspecified severity, without behavioral disturbance, psychotic disturbance, mood disturbance, and anxiety; K83.8 Other specified diseases of biliary tract; H54.7 Unspecified visual loss; K21.9 Gastro-esophageal reflux disease without esophagitis; F41.9 Anxiety disorder, unspecified; F32.9 Major depressive disorder, single episode, unspecified; Z87.891 Personal history of nicotine dependence; Z95.820 Peripheral vascular angioplasty status with implants and grafts; Z79.82 Long term (current) use of aspirin
CPT/HCPCS: 36415; 80048; 80053; 81000; 83690; 85007; 85025; 85027; 86141; 87040; 87088; 96374; 96375

== ENCOUNTER → 2021-03-12 | Outpatient (CLI) | payer MEDICARE, OTHER ==
[~2021-03-12] MED LIST: AMLO-250 PO; ASCO1TAB42 PO; ASCO500C17 PO; ASPI-1238 PO; CALC-823 PO; CEFD300C3 PO; CHOL10004 PO; CYAN500T8 PO; LEVO75TA6 PO; LOSA50TA63 PO; NFBIOT1000 PO; OMEG-109 PO; VITA400C60 PO; VITA80006 PO
== END ==
LOC: LABNPT 08:54
DX: Z20.822 Contact with and (suspected) exposure to COVID-19 (principal)
CPT/HCPCS: 87635

== ENCOUNTER → 2021-07-02 | Outpatient (CLI) | payer MEDICARE, OTHER | LOC: LABNPT 06:46 | PROVIDERS: ATTEND Nurse Practitioner Adult Health | DX: Z53.9 Procedure and treatment not carried out, unspecified reason (principal) ==

== ENCOUNTER 2021-07-26 19:31 | Emergency (ER) | payer MEDICARE, OTHER ==
[~2021-07-26] VITALS: Ht 165.1 cm; Wt 77.1 kg
[2021-07-26 20:31] LABS: BASOPHILS % (AUTO) 0 % (0-10); EOSINOPHILS % (AUTO) 0 % (0-10); HEMATOCRIT 32 % (35-52); HEMOGLOBIN 11.2 g/dL (11.5-16.0); LYMPHOCYTES % (AUTO) 7 % (12-44); MEAN CORPUSCULAR HEMOGLOBIN 30 pg (25-34); MEAN CORPUSCULAR HGB CONC 35 g/dL (32-36); MEAN CORPUSCULAR VOLUME 86 fL (80-99); MEAN PLATELET VOLUME 10.2 fL (9.0-12.2); MONOCYTES % (AUTO) 6 % (0-12); NEUTROPHILS # (AUTO) 13.2 10^3/uL (1.8-7.8); NEUTROPHILS % (AUTO) 86 % (42-75); PLATELET COUNT 342 10^3/uL (130-400); WHITE BLOOD COUNT 15.4 10^3/uL (4.3-11.0)
[2021-07-26 20:31] LABS: CLARITY,URINE CLEAR; COLOR,URINE ORANGE; GLUCOSE, URINE (UA) TRACE (NEGATIVE); KETONES,URINE TRACE (NEGATIVE); LEUKOCYTE ESTERASE ,URINE NEGATIVE (NEGATIVE); NITRITE,URINE NEGATIVE (NEGATIVE); PROTEIN,URINE 1+ (NEGATIVE)
[2021-07-26 20:39] LABS: BACTERIA,URINE FEW /HPF; RBC,URINE RARE /HPF
[2021-07-26 20:42] LABS: INR 1.1 (0.8-1.4); PROTHROMBIN TIME PATIENT 14.9 SEC (12.2-14.7)
[2021-07-26 20:42] LABS: BILIRUBIN,URINE 3+ (NEGATIVE)
[2021-07-26] MEDS ORDERED: NS IV 1000 ML 1,000 ML IV ONE (20:45)
[2021-07-26] MEDS ORDERED: NS IV 1000 ML 1,000 ML IV SCH (20:45)
[2021-07-26 20:50] LABS: ALBUMIN 3.1 GM/DL (3.2-4.5); BILIRUBIN,TOTAL 8.4 MG/DL (0.1-1.0); CALCIUM 8.9 MG/DL (8.5-10.1); CREATININE SERUM 0.68 MG/DL (0.60-1.30); POTASSIUM 3.9 MMOL/L (3.6-5.0); TOTAL PROTEIN 6.9 GM/DL (6.4-8.2)
--- NOTE | 2021-07-26 20:50 | ED General ---
General Chief Complaint: General Problems/Pain Stated Complaint: FEVER, DARK URINE Nursing Triage Note: PT TO RM 3 VIA WC ALONGSIDE DAUGHTER. DAUGHTER REPORTS PT WENT TO FOR PANC. DUCT STENT LAST MONDAY, 10 DAYS PRIOR A STENT WAS PLACED AND MOVED, PT SUPPOSED TO GET A NEW STENT Q8 WEEKS, STENT PLACED LAST MON D/T MOVEMENT. PT DAUGHTER ALSO REPORTS THAT KU DR'S BELIEVE PT HAS CANCER, AFTER SEVERAL BIOPSIES DR'S UNABLE TO DETECT CANCER. PT C/O DARK URINE TODAY AND INCREASED FATIGUE/WEAKNESS. PT A&OX4, C/O RUQ PAIN THAT IS NO DIFFERENT THAN USUAL ACCORDING TO DAUGHTER. Source of Information: Patient, Family (Daughter) Exam Limitations: No Limitations (CONSTANCE FU) History of Present Illness Date Seen by Provider: Jul 26, 2021 Time Seen by Provider: 20:29 Initial Comments Patient ER by private conveyance with her daughter and chief complaint that for the past 1 day she has had increased somnolence hard to carry a conversation, poor memory. 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 Dr. Manuel is her primary care doctor. They have done needle aspirations as well as multiple Cytobrush's and yet to find the cancer. She has an oncologist at [facility]. Daughter is concerned because she cannot get her to eat or drink and feel she is dehydrated. She is not out to urinate very well. Last bowel movement was yesterday normal, formed, light-colored. The patient had stents placed 2 to 3 weeks ago that apparently became displaced and had to go back last Monday to because all her liver enzymes and bile had doubled since her initial stents were placed. They did ERCP and replaced her stent. She still having her chronic right upper quadrant abdominal discomfort. She is not having any nausea or vomiting. She does not take rifaximin, lactulose nor does she have a known history of elevated ammonia. Her daughter states that she started being more sleepy when they reduced her Synthroid from 75 mcg to 50 mcg and feels that this may have contributed. (CONSTANCE FU) Allergies and Home Medications Allergies Coded Allergies: No Known Drug Allergies (Unverified , 02/07/21) Patient Home Medication List Home Medication List Reviewed: Yes (CONSTANCE FU) Amlodipine Besylate (Amlodipine Besylate) 5 Mg Tablet, 5 MG PO 1400, (Reported) Entered as Reported by: MENA PIERSON on 02/09/21 105 Ascorbic Acid (Vitamin C) 500 Mg Capsule, 500 MG PO HS, (Reported) Entered as Reported by: MENA PIERSON on 02/09/21 105 Ascorbic Acid/Elderberry Fruit (Elderberry-Vit C 50-100 mg Chw) 1 Each Tab.chew, 1 EACH PO HS, (Reported) Entered as Reported by: MENA PIERSON on 02/09/21 105 Aspirin (Aspirin EC) 81 Mg Tablet.dr, 81 MG PO 1400, (Reported) Entered as Reported by: MENA PIERSON on 02/09/21 105 Biotin (Biotin) 1,000 Mcg Tablet, 1,000 MCG PO HS, (Reported) Entered as Reported by: MENA PIERSON on 02/09/21 105 Calcium Carbonate (Calcium) 500 Mg Tablet, 500 MG PO HS, (Reported) Entered as Reported by: MENA PIERSON on 02/09/21 105 Cefdinir (Cefdinir) 300 Mg Capsule, 300 MG PO BID Prescribed by: KAYY MURPHY on 02/10/21 105 Cholecalciferol (Vitamin D3) (Vitamin D3) 25 Mcg Tablet, 25 MCG PO HS, (Reported) Entered as Reported by: MENA PIERSON on 02/09/21 105 Cyanocobalamin (Vitamin B-12) (Vitamin B-12) 500 Mcg Tablet, 500 MCG PO HS, (Reported) Entered as Reported by: MENA PIERSON on 02/09/21 105 Levothyroxine Sodium (Levothyroxine Sodium) 75 Mcg Tablet, 75 MCG PO DAILY, (Reported) Entered as Reported by: MENA PIERSON on 02/09/21 105 Losartan Potassium (Losartan Potassium) 50 Mg Tablet, 50 MG PO 1400, (Reported) Entered as Reported by: MENA PIERSON on 02/09/21 105 Magnolia-3 Fatty Acids/Fish Oil (Fish Oil 1,200 mg Softgel) 1 Each Capsule, 1 EACH PO HS, (Reported) Entered as Reported by: MENA PIERSON on 02/09/21 105 Vitamin A (Vitamin A) 2,400 Mcg Capsule, 2,400 MCG PO HS, (Reported) Entered as Reported by: MENA PIERSON on 02/09/21 1055 Vitamin E Acetate (Vitamin E) 400 Unit Capsule, 400 UNIT PO HS, (Reported) Entered as Reported by: MENA PIERSON on 02/09/21 1055 Review of Systems Review of Systems Constitutional: see HPI (Somnolence); No chills, No fever, No malaise; weakness EENTM: No hearing loss, No ear pain Respiratory: No cough, No short of breath Cardiovascular: No chest pain, No palpitations Gastrointestinal: No abdominal pain, No nausea, No vomiting Genitourinary: No discharge, No dysuria, No frequency, No hematuria Musculoskeletal: No back pain, No joint pain Skin: change in color (Significantly jaundiced) (CONSTANCE FU) All Other Systems Reviewed Negative Unless Noted: Yes (CONSTANCE FU) Past Sfeoqhy-Qjtjet-Tfagqk Hx Patient Social History Tobacco Use?: No Use of E-Cig and/or Vaping dev: No Substance use?: No Alcohol Use?: No (CONSTANCE FU) Immunizations Up To Date Influenza Vaccine Up-to-Date: Yes; Up-to-Date First/Initial COVID19 Vaccinat: 06/2020 Second COVID19 Vaccination John: 07/2020 Third COVID19 Vaccination Date: 2020 COVID19 Vaccine Associate Accountant: JERICA (CONSTANCE FU) Past Medical History Hypertension Hypothyroidsim (CONSTANCE FU) Family Medical History No Pertinent Family Hx (CONSTANCE FU) Physical Exam Vital Signs Vital Signs - First Documented 07/26/21 20:00 Temp 37.1 Pulse 86 Resp 20 B/P (MAP) 118/69 (85) Pulse Ox 94 O2 Delivery Room Air (PING GILES MD) Vital Signs Capillary Refill : Less Than 3 Seconds (CONSTANCE FU) Height, Weight, BMI Height: '" Weight: lbs. oz. kg; 28.00 BMI Method: General Appearance: No Apparent Distress, Chronically ill Eyes: Bilateral Eye Normal Inspection, Bilateral Eye PERRL, Bilateral Eye EOMI HEENT: PERRL/EOMI, TMs Normal, Normal ENT Inspection, Pharynx Normal; No Moist Mucous Membranes (Mildly dry oral mucosa) Neck: Full Range of Motion, Normal Inspection Respiratory: Lungs Clear, Normal Breath Sounds, No Accessory Muscle Use, No Respiratory Distress Cardiovascular: Regular Rate, Rhythm, No Edema, Normal Peripheral Pulses Gastrointestinal: Normal Bowel Sounds, Soft Extremity: Normal Capillary Refill, Non Tender, No Calf Tenderness, Pedal Edema (Trace bipedal the calves edema) Neurologic/Psychiatric: Alert, Oriented x3, No Motor/Sensory Deficits, Normal Mood/Affect, psychiatric registered nurse II-XII Norm as Tested Skin: Normal Color, Warm/Dry (CONSTANCE FU) Focused Exam Lactate Level 07/26/21 20:20: Lactic Acid Level 0.88 (PING GILES MD) Lactic Acid Level Laboratory Tests Test 07/26/21 20:20 Lactic Acid Level 0.88 MMOL/L (0.50-2.00) (PING GILES MD) Progress/Results/Core Measures Suspected Sepsis SIRS Temperature: Pulse: 86 Respiratory Rate: 20 Laboratory Tests 07/26/21 20:20: White Blood Count 15.4H Blood Pressure 118 /69 Mean: 85 07/26/21 20:20: Lactic Acid Level 0.88 Laboratory Tests 07/26/21 20:20: Creatinine 0.68, INR Comment 1.1, Platelet Count 342, Total Bilirubin 8.4H (CONSTANCE FU) Results/Orders Lab Results Laboratory Tests Test 07/26/21 19:50 07/26/21 20:20 07/26/21 20:44 Range/Units Urine Color ORANGE Urine Clarity CLEAR Urine pH 6.0 5-9 Urine Specific Golden 1.015 L 1.016-1.022 Urine Protein 1+ H NEGATIVE Urine Glucose (UA) TRACE H NEGATIVE Urine Ketones TRACE H NEGATIVE Urine Nitrite NEGATIVE NEGATIVE Urine Bilirubin 3+ H NEGATIVE Urine Urobilinogen 1.0 < = 1.0 MG/DL Urine Leukocyte Esterase NEGATIVE NEGATIVE Urine RBC (Auto) NEGATIVE NEGATIVE Urine RBC RARE /HPF Urine WBC 2-5 /HPF Urine Squamous Epithelial Cells 5-10 /HPF Urine Crystals NONE /LPF Urine Bacteria FEW H /HPF Urine Casts NONE /LPF Urine Mucus SMALL H /LPF Urine Culture Indicated CULTURE PENDING White Blood Count 15.4 H 4.3-11.0 10^3/uL Red Blood Count 3.71 L 3.80-5.11 10^6/uL Hemoglobin 11.2 L 11.5-16.0 g/dL Hematocrit 32 L 35-52 % Mean Corpuscular Volume 86 80-99 fL Mean Corpuscular Hemoglobin 30 25-34 pg Mean Corpuscular Hemoglobin Concent 35 32-36 g/dL Red Cell Distribution Width 16.7 H 10.0-14.5 % Platelet Count 342 130-400 10^3/uL Mean Platelet Volume 10.2 9.0-12.2 fL Immature Granulocyte % (Auto) 1 % Neutrophils (%) (Auto) 86 H 42-75 % Lymphocytes (%) (Auto) 7 L 12-44 % Monocytes (%) (Auto) 6 0-12 % Eosinophils (%) (Auto) 0 0-10 % Basophils (%) (Auto) 0 0-10 % Neutrophils # (Auto) 13.2 H 1.8-7.8 10^3/uL Lymphocytes # (Auto) 1.0 1.0-4.0 10^3/uL Monocytes # (Auto) 1.0 0.0-1.0 10^3/uL Eosinophils # (Auto) 0.0 0.0-0.3 10^3/uL Basophils # (Auto) 0.0 0.0-0.1 10^3/uL Immature Granulocyte # (Auto) 0.1 0.0-0.1 10^3/uL Neutrophils % (Manual) 82 % Lymphocytes % (Manual) 6 % Monocytes % (Manual) 6 % Band Neutrophils 6 % Blood Morphology Comment NORMAL Prothrombin Time 14.9 H 12.2-14.7 SEC INR Comment 1.1 0.8-1.4 Activated Partial Thromboplast Time 33 24-35 SEC Sodium Level 125 *L 135-145 MMOL/L Potassium Level 3.9 3.6-5.0 MMOL/L Chloride Level 96 L 98-107 MMOL/L Carbon Dioxide Level 18 L 21-32 MMOL/L Anion Gap 11 5-14 MMOL/L Blood Urea Nitrogen 12 7-18 MG/DL Creatinine 0.68 0.60-1.30 MG/DL Estimat Glomerular Filtration Rate 86 BUN/Creatinine Ratio 18 Glucose Level 121 H 70-105 MG/DL Lactic Acid Level 0.88 0.50-2.00 MMOL/L Calcium Level 8.9 8.5-10.1 MG/DL Corrected Calcium 9.6 8.5-10.1 MG/DL Total Bilirubin 8.4 H 0.1-1.0 MG/DL Aspartate Amino Transf (AST/SGOT) 89 H 5-34 U/L Alanine Aminotransferase (ALT/SGPT) 122 H 0-55 U/L Alkaline Phosphatase 1061 H 40-136 U/L Total Protein 6.9 6.4-8.2 GM/DL Albumin 3.1 L 3.2-4.5 GM/DL Ammonia 48 H 11-32 UMOL/L Procalcitonin 0.98 H <0.10 NG/ML Serum Alcohol < 10 <10 MG/DL (PING GILES MD) Micro Results Microbiology 07/26/21 Blood Culture - Preliminary, Resulted No growth 07/26/21 Blood Culture - Preliminary, Resulted No growth 07/26/21 Urine Culture - Preliminary, Resulted Mixed Bacterial Davida (PING GILES MD) My Orders Orders - PING GILES MD Ns Iv 1000 Ml (Sodium Chloride 0.9%) (07/27/21 10:30) Fentanyl Inj (Sublimaze Injection) (07/27/21 15:13) Fentanyl Inj (Sublimaze Injection) (07/27/21 16:45) (PING GILES MD) Medications Given in ED Current Medications Medications Dose Ordered Sig/Rosana Route Start Time Stop Time Status Last Admin Dose Admin Sodium Chloride 1,000 ml @ 150 mls/hr Q6H40M ONCE IV 07/27/21 10:30 07/27/21 17:09 DC 07/27/21 10:46 150 MLS/HR (PING GILES MD) Vital Signs/I&O 07/26/21 07/26/21 07/26/21 07/27/21 20:00 23:15 23:30 00:15 Temp 37.1 Pulse 86 77 78 84 Resp 20 18 B/P (MAP) 118/69 (85) 133/66 138/65 140/63 Pulse Ox 94 98 O2 Delivery Room Air Room Air 07/27/21 07/27/21 07/27/21 07/27/21 00:30 00:45 01:15 01:30 Pulse 78 80 80 82 B/P (MAP) 142/66 146/81 147/73 149/65 07/27/21 07/27/21 07/27/21 07/27/21 01:45 02:00 02:15 02:30 Pulse 80 81 87 78 B/P (MAP) 147/56 140/57 125/54 112/48 07/27/21 07/27/21 07/27/21 07/27/21 03:00 03:15 03:30 03:45 Pulse 80 90 85 81 B/P (MAP) 112/47 106/48 122/52 132/59 07/27/21 17:44 Pulse 78 Resp 16 B/P (MAP) 145/54 Pulse Ox 97 O2 Delivery Room Air (PING GILES MD) Vital Signs/I&O Capillary Refill : Less Than 3 Seconds (CONSTANCE FU) Blood Pressure Mean: 85 Progress Note #1: Time: 20:49 Progress Note Neurologically intact. Suspect delirium versus ammonia delirium. Will check some labs chest x-ray. We will check her bilirubin level and compare it to last week. Progress Note #2: Time: 23:[address] the abdomen pelvis ordered with IV contrast to try and evaluate the ducts. Ultrasound not available at this time. [facility] called and they want to take the patient but do not have bed availability. They said if we still have her by 10:00 in the morning tomorrow we should call them back. Progress Note #3: Time: 00:13 Progress Note Discussed the case with Dr. Rivera, gastroenterology at [facility] and he recommends the patient is too complicated and they would probably not be able to do anything for her and she needs to return to a tertiary care center. Will discuss with the patient overnight stay in the ER and attempt to transport out tomorrow if has availability. Patient is okay with this plan. We will get her a hospital bed for overnight. She is stable has good vital signs at this time. (CONSTANCE FU) Progress Note : Progress Note 0600: Assumed care of the patient pending repeat transfer request to [facility]. We are able to do that at about 10 AM. Patient resting comfortably. Monitor patient. 1014: has been contacted and we have reinitiated triage screening. There still challenges for bed space but will discuss with their physician administration team to determine if they can get her in there. Unfortunately, given her stent status work-up has been done, patient needs tertiary center and [email or web address] which she has had her work done so we will continue to try there. This was discussed with him as well. We are maintaining n.p.o. status. Will initiate maintenance IV fluids. She is otherwise comfortable currently. All information to this point has been discussed with patient and family. Vice Principal is at bedside currently in talking with her. Monitor patient. 1513: Patient has been accepted at and we are pending.. She has been resting comfortably but is still having some right-sided abdominal pain. Fentanyl 50 mcg IV ordered. Monitor patient. 1645: We have bed assignment and EMS is in route. We will give fentanyl 50 mcg IV again now as she is starting to have some more pain again. Otherwise comfortable and ready for transfer. (PING GILES MD) Diagnostic Imaging Diagonstic Imaging: Xray Plain Films/CT/US/NM/MRI: chest Comments [facility] [place], [place] NAME: LEIGHA RUSH [facility] REC#: [id number] PT STATUS: REG ER : 1935 PHYSICIAN: VANESSA TRAMMELL APRN ADMIT DATE: 07/26/21/ER Signed Date of Exam:07/26/21 CHEST 1 VIEW, AP/PA ONLY CHEST 1 VIEW, AP/PA ONLY Indication: Fever Comparison: 02/07/2021 Findings: Stable calcified left upper lobe pulmonary granuloma. No focal airspace disease in the visualized lungs. Please note that the posterior lower lobes are poorly evaluated by portable radiography. No pleural effusion or pneumothorax. Normal cardiomediastinal silhouette. Impression: 1. No acute cardiopulmonary process by portable radiography. Dictated by: Dictated on workstation # [id number] Dict: 07/26/212101 Trans: 07/26/212102 [facility] [id number] Interpreted by: NANO ALLEN MD Electronically signed by: NANO ALLEN MD 07/26/212102 Reviewed: Reviewed by Oh Diagonstic Imaging: CT Plain Films/CT/US/NM/MRI: abdomen, pelvis Comments The previously noted endoscopic type small caliber biliary stent in the mid to distal common bile duct has been exchanged for a longer double looped biliary stent with the superior portion and a branch of the left intrahepatic biliary tr ee and the inferior loop noted in the horizontal portion of the duodenum. Despite a biliary exchange there are new areas of intrahepatic biliary dilatation as detailed above. There is an ill-defined area of diminished enhancement near the kyrie hepatis wh ich is not clearly defined but is estimated approximately 1.8 x 3 cm. Advancing subtle neoplastic process at the kyrie hepatis such as a is suspected. Please correlate clinically with the history. The pancreas is unremarkable with normal enhancement. No pancreatic ductal dilatation is noted. No pancreatic ductal stent is noted. [facility] [place] [place] NAME: LEIGHA RUSH [facility] REC#: [id number] PT STATUS: REG ER : 1935 PHYSICIAN: CONSTANCE FU MD ADMIT DATE: 07/26/21/ER Draft Date of Exam:07/26/21 CT ABDOMEN/PELVIS W INDICATION: Elevated bilirubin, history of liver mass TECHNIQUE: Multiple contiguous axial images were obtained through the abdomen and pelvis after administration of intravenous contrast. Auto Exposure Controls were utilized during the CT exam to meet ALARA standards for radiation dose reduction. All CT scans use one or more of the following dose optimizing techniques: automated exposure control, MA and/or KvP adjustment based on patient size and exam type or iterative reconstruction. Comparison made to prior study of 02/07/2021. The visualized portions of the lung bases appear clear. There is no pleural fluid collection. There is no free intraperitoneal air. The liver shows diffuse inhomogeneity. There is no discrete liver mass, but there do appear to be some mildly prominent nodes in the kyrie hepatis. There is biliary ductal prominence despite the presence of an internal biliary stent. The pancreas shows no discrete focal lesion, there is no dilatation of the pancreatic duct. Spleen is mildly enlarged. There are several calcified granuloma in the spleen as well as a cyst in the spleen posteriorly, unchanged compared to the prior study. The adrenals and kidneys are normal. There is no retroperitoneal mass or adenopathy. There is no ascites or abnormal fluid collection. IMPRESSION: Compared to the prior study of 02/07/2021, there has been change of the patient's biliary stent. There is new dilatation of the intrahepatic bile ducts despite the presence of the stent, suggesting stent malfunction. The liver shows diffuse inhomogeneity but there is no distinct liver lesion, there are some mildly prominent nodes in the kyrie hepatis which may be metastatic. 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 There is no abscess or bowel obstruction. Dictated on workstation # [id number] Dict: 07/27/21611 Trans: 07/27/21 0620 [place] [id number] Interpreted by: CHANTE LAGUNA MD Electronically signed by: Reviewed: Reviewed [place] Study, Reviewed by Me (CONSTANCE FU) Departure Impression Primary Impression: Disorder of bile duct stent Qualified Codes: T85.9XXA - Unspecified complication of internal prosthetic device, implant and graft, initial encounter Additional Impressions: Hyperbilirubinemia Hyperammonemic encephalopathy Disposition: SHT-TRM HOSP Condition: Stable Transfer Transfer Reason: Exceeds level of care (No GI inpt) (CONSTANCE FU) Transfer Reason: Exceeds level of care (No GI inpt) Time Spoke to Accepting Phy: 12:30 Transfer Progress Notes [place], [place], Dr. Patel accepting. Transfer Time: 17:00 Transfer Facility: [place], [place] Method of Transfer: EMS ([facility]) (PING GILES MD) Departure-Patient Inst. Referrals: NO,LOCAL PHYSICIAN (PCP/Family) Primary Care Physician CONSTANCE FU Jul 26, 2021 20:50 PING GILES MD Jul 27, 2021 10:29
--- NOTE | 2021-07-26 21:04 | Diagnostic Imaging Report ---
CHEST 1 VIEW, AP/PA ONLY Indication: Fever Comparison: 02/07/2021 Findings: Stable calcified left upper lobe pulmonary granuloma. No focal airspace disease in the visualized lungs. Please note that the posterior lower lobes are poorly evaluated by portable radiography. No pleural effusion or pneumothorax. Normal cardiomediastinal silhouette. Impression: 1. No acute cardiopulmonary process by portable radiography. Dictated by: Dictated on workstation # [id number]
[2021-07-26 21:41] LABS: BAND NEUTROPHILS 6 %; LYMPHOCYTES % (MANUAL) 6 %; MONOCYTES % (MANUAL) 6 %; NEUTROPHILS % (MANUAL) 82 %; RBC MORPH NORMAL
[2021-07-26 21:47] LABS: AMMONIA 48 UMOL/L (11-32)
[2021-07-27] MEDS ORDERED: NS 100 ML (IVPB) BAG IV ONE
[2021-07-27] MEDS ORDERED: CATHETER FLUSH 10 ML SYR IV PRN
[2021-07-27] MEDS ORDERED: IOHEXOL 350 MG/ML 100 ML (OMNIPAQUE 350) VIAL IV ONE
[2021-07-27] MEDS ORDERED: HOLD METFORMIN - RECEIVED CONTRAST 20 ML VIAL IV SCH
[2021-07-27] MEDS ORDERED: PANTOPRAZOLE INJECTION 200 MG in NS (IVPB) 100 ML IV SCH (02:00)
[2021-07-27] MEDS ORDERED: PANTOPRAZOLE 40 MG (PROTONIX) VIAL IV ONE (02:00)
[2021-07-27] MEDS ORDERED: ONDANSETRON 4 MG/2 ML (SDV) Z0FRAN IVP ONE (02:00)
--- NOTE | 2021-07-27 06:21 | Diagnostic Imaging Report ---
INDICATION: Elevated bilirubin, history of liver mass TECHNIQUE: Multiple contiguous axial images were obtained through the abdomen and pelvis after administration of intravenous contrast. Auto Exposure Controls were utilized during the CT exam to meet ALARA standards for radiation dose reduction. All CT scans use one or more of the following dose optimizing techniques: automated exposure control, MA and/or KvP adjustment based on patient size and exam type or iterative reconstruction. Comparison made to prior study of 02/07/2021. The visualized portions of the lung bases appear clear. There is no pleural fluid collection. There is no free intraperitoneal air. The liver shows diffuse inhomogeneity. There is no discrete liver mass, but there do appear to be some mildly prominent nodes in the kyrie hepatis. There is biliary ductal prominence despite the presence of an internal biliary stent. The pancreas shows no discrete focal lesion, there is no dilatation of the pancreatic duct. Spleen is mildly enlarged. There are several calcified granuloma in the spleen as well as a cyst in the spleen posteriorly, unchanged compared to the prior study. The adrenals and kidneys are normal. There is no retroperitoneal mass or adenopathy. There is no ascites or abnormal fluid collection. IMPRESSION: Compared to the prior study of 02/07/2021, there has been change of the patient's biliary stent. There is new dilatation of the intrahepatic bile ducts despite the presence of the stent, suggesting stent malfunction. The liver shows diffuse inhomogeneity but there is no distinct liver lesion, there are some mildly prominent nodes in the kyrie hepatis which may be metastatic. 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 There is no abscess or bowel obstruction. Dictated by: Dictated on workstation # [id number]
[2021-07-27] MEDS ORDERED: NS IV 1000 ML 1,000 ML IV ONE (10:30)
[2021-07-27] MEDS ORDERED: fentaNYL INJ 100 MCG/2 ML AMP IVP STA ×2 (15:13→16:45)
[2021-07-27 17:44] VITALS: BP 145/54
== END 2021-07-27 17:44 | disposition short-term general hospital (02) ==
LOC: EDUNIT# 19:31 → ER 19:35
DX: T85.590A Other mechanical complication of bile duct prosthesis, initial encounter (principal); E80.6 Other disorders of bilirubin metabolism; E72.4 Disorders of ornithine metabolism
CPT/HCPCS: 71045; 74177; 80053; 81000; 82140; 83605; 84145; 85007; 85027; 85610; 85730; 87040; 87077; 87088; 87186; 96361; 96374; 96376; 99285; G0480; 36415; 80320